=== PATIENT | female | born 1945 | race Caucasian/White ===

== ENCOUNTER 2021-05-05 12:59 | Emergency (ER) | payer MEDICARE ==
--- NOTE | 2021-05-05 14:58 | CT ---
Abdomen Pelvis wo Cont CLINICAL HISTORY: Left lower abdominal pain COMPARISON: None. TECHNIQUE: Axial tomographic images are obtained from the dome of the diaphragm to the pubic symphysis without IV contrast enhancement. No oral contrast was used. The dosage reduction and iterative reconstruction techniques employed. FINDINGS: There is moderate descending colon diverticulosis. Level of the iliac crest is thickened section of descending colon. There is stranding in the pericolic fat. There is some mild thickening of the lateral colon fascia. The lung bases are clear. The liver shows no mass or biliary dilatation. The gallbladder contains at least one large gallstone. The spleen has a normal size and shape. The pancreas shows diffuse fatty infiltration. No mass or inflammatory change is seen.. The adrenal glands appear normal bilaterally. The kidneys show no hydronephrosis. There is a punctate nonobstructing calculus in the midpole of the left kidney. Ureters have a normal course and caliber. The bladder has a normal contour.. The aorta shows minimal atheromatous plaque. There is no suspicious retroperitoneal adenopathy. IMPRESSION: Left colon diverticulosis with lower descending colon diverticulitis Cholelithiasis
--- NOTE | 2021-05-05 15:15 | EDM.PDOC ---
ED HPI GENERAL MEDICAL PROBLEM - General Chief Complaint: Abdominal Pain Stated Complaint: INCREASINGLY INTENSE PAIN ON LT SIDE LOWER ABD Time Seen by Provider: 05/05/21 13:30 Source of Information: Reports: Patient History Limitations: Reports: No Limitations - History of Present Illness INITIAL COMMENTS - FREE TEXT/NARRATIVE: 75-year-old female developed mild left lower abdominal pain 3 days ago, it is slowly worsening over the past 3 days. Yesterday she felt low grade fever and some mild chills but that is resolved. Appetite is also decreased. She looks fairly comfortable, when she is sitting still she has no pain. Onset: Gradual Duration: Day(s): (3 days of symptoms) Location: Reports: Abdomen Quality: Reports: Pressure, Stabbing (Pain is stabbing or palpated or moving) Improves with: Reports: Rest Worsens with: Reports: Movement Associated Symptoms: Reports: Other (Brief loose stools yesterday, possible fever overnight) - Related Data Allergies Allergy/AdvReac Type Severity Reaction Status Date / Time meperidine [From Demerol] Allergy Hives Verified 05/05/21 13:39 Home Meds: Home Meds Ascorbic Acid [Vitamin C] 1,000 mg PO DAILY 05/05/21 [History] Aspirin [Halfprin] 81 mg PO DAILY 05/05/21 [History] Calcium Carbonate [Calcium] 1,000 mg PO DAILY 05/05/21 [History] Calcium Carbonate [Calcium] 250 mg PO BEDTIME 05/05/21 [History] Diltiazem [Dilacor XR] 180 mg PO DAILY 05/05/21 [History] Empagliflozin [Jardiance] 10 mg PO DAILY 05/05/21 [History] Fish Oil/[place]-3 Fatty Acids [Fish Oil 1,000 MG] 1 cap PO DAILY 05/05/21 [History] Furosemide [Lasix] 20 mg PO DAILY 05/05/21 [History] Levothyroxine 175 mcg PO DAILY 05/05/21 [History] Losartan [Cozaar] 50 mg PO DAILY 05/05/21 [History] Magnesium 400 mg PO BID 05/05/21 [History] Omeprazole 40 mg PO DAILY 05/05/21 [History] Potassium Gluconate [Potassium] 198 mg PO BID 05/05/21 [History] Rosuvastatin [Crestor] 5 mg PO DAILY 05/05/21 [History] Tumeric/Ging/[place]/Oreg/Capryl [Candicidal Capsule] 1 cap PO BID 05/05/21 [History] Vitamin B Complex 1 cap PO DAILY 05/05/21 [History] Zinc Gluconate [Zinc] 15 mg PO DAILY 05/05/21 [History] allopurinoL [Zyloprim] 100 mg PO DAILY 05/05/21 [History] metFORMIN [Glucophage] 1,000 mg PO BID 05/05/21 [History] rOPINIRole [Requip] 0.5 mg PO BID 05/05/21 [History] traMADol [Ultram] 50 mg PO ASDIRECTED PRN 05/05/21 [History] Past Medical History - Infectious Disease History Infectious Disease History: Reports: Measles Social & Family History - Tobacco Use Tobacco Use Status *Q: Never Tobacco User - Recreational Drug Use Recreational Drug Use: No ED ROS GENERAL - Review of Systems Review Of Systems: See Below Constitutional: Reports: Fever, Chills, Malaise HEENT: Reports: No Symptoms Respiratory: Denies: Shortness of Breath Cardiovascular: Denies: Chest Pain GI/Abdominal: Reports: Abdominal Pain, Diarrhea. Denies: Vomiting Musculoskeletal: Reports: No Symptoms Skin: Denies: Pruritis, Rash, Erythema Neurological: Reports: No Symptoms ED EXAM, GI/ABD - Physical Exam Exam: See Below Exam Limited By: Intoxication General Appearance: Alert, No Apparent Distress Eyes: Bilateral: Normal Appearance (No jaundice) Head: Atraumatic Respiratory/Chest: No Respiratory Distress, Lungs Clear Cardiovascular: Regular Rate, Rhythm. No: Tachycardia GI/Abdominal Exam: Normal Bowel Sounds, Soft, Tender (Fairly tender to palpation in the left lower quadrant with mild to moderate guarding, no significant rebound tenderness) Extremities: Pedal Edema (Trace symmetric edema) Neurological: Alert, Oriented, No Motor/Sensory Deficits Psychiatric: Normal Affect, Normal Mood Skin Exam: Warm, Dry (No rash over painful area) Course - Vital Signs Last Recorded V/S: Last Vital Signs Temp 97.0 F 05/05/21 13:38 Pulse 102 H 05/05/21 13:38 Resp 16 05/05/21 13:38 BP 138/66 05/05/21 13:38 Pulse Ox 98 05/05/21 13:38 - Orders/Labs/Meds Labs: Laboratory Tests 05/05/21 05/05/21 Range/Units 14:24 14:24 WBC 12.1 H (4.5-11.0) K/uL RBC 4.45 (3.30-5.50) M/uL Hgb 10.8 L (12.0-15.0) g/dL Hct 36.4 (36.0-48.0) % MCV 82 (80-98) fL MCH 24 L (27-31) pg MCHC 30 L (32-36) % Plt Count 280 (150-400) K/uL Neut % (Auto) 76.1 H (36-66) % Lymph % (Auto) 15.7 L (24-44) % [place] % (Auto) 6.7 H (2-6) % Eos % (Auto) 1.1 L (2-4) % Baso % (Auto) 0.4 (0-1) % Sodium 140 (140-148) mmol/L Potassium 4.1 (3.6-5.2) mmol/L Chloride 103 (100-108) mmol/L Carbon Dioxide 28 (21-32) mmol/L Anion Gap 8.9 (5.0-14.0) mmol/L BUN 12 (7-18) mg/dL Creatinine 1.1 H (0.6-1.0) mg/dL Est Cr Clr Drug Dosing 36.02 mL/min Estimated GFR (MDRD) 49 L (>60) Glucose 91 (74-106) mg/dL Calcium 9.0 (8.5-10.1) mg/dL - Re-Assessments/Exams Free Text/Narrative Re-Assessment/Exam: 05/05/21 15:24 Discussed with the patient that this likely is diverticulitis, but since she has never had this diagnosed before it will be confirmed. CBC and BMP were obtained and a CT of the abdomen and pelvis without contrast ordered. White count did return mildly elevated at 12,100, hemoglobin was normal. BMP was reassuring. CT did confirm diverticulitis in the descending colon. Discussed results with the patient, she was placed on Bactrim DS twice daily for at least 5 days along with metronidazole 500 mg 3 times a day for 5 days. She will return if not improving satisfactorily in 3 or 4 days, or return anytime if worsening such as increased pain, fever, vomiting the medications or other concerns. Departure - Departure Time of Disposition: 15:23 Disposition: Home, Self-Care 01 Clinical Impression: Diverticulitis Abdominal pain Qualifiers: Abdominal location: left lower quadrant Qualified Code(s): R10.32 - Left lower quadrant pain - Discharge Information Instructions: Diverticulitis, [id number] Referrals: PCP,None [Primary Care Provider] - Forms: ED Department Discharge Care Plan Goals: Take antibiotic for at least 5 days, drink lots of water and a stool softener may be helpful as well. An anti-inflammatory such as ibuprofen or Aleve will help with pain. Return anytime if worsening such as vomiting the medication, increased fever chills or uncontrolled pain, or consider rechecking in 3 to 4 days if not improving significantly. Sepsis Event Note (ED) - Evaluation Sepsis Screening Result: No Definite Risk
== END 2021-05-05 15:24 | disposition home or self-care (01) ==
LOC: JP.ED 12:59
DX: K57.32 Diverticulitis of large intestine without perforation or abscess without bleeding (principal); Z88.5 Allergy status to narcotic agent; Z79.82 Long term (current) use of aspirin; Z79.899 Other long term (current) drug therapy
CPT/HCPCS: 36415; 74176; 74176-26; 80048; 85025; 99284-25

== ENCOUNTER 2021-08-11 15:00 | Inpatient (IN) | payer MEDICARE ==
[2021-08-11] MEDS ORDERED: Sodium Chloride 0.9% 10 ML Syringe FLUSH PRN (15:24)
--- NOTE | 2021-08-11 15:59 | EDM.PDOC ---
ED HPI GENERAL MEDICAL PROBLEM - General Chief Complaint: Respiratory Problem Stated Complaint: COMPLICATIONS OF COVID Time Seen by Provider: 08/11/21 15:45 Source of Information: Reports: Patient, Old Records, RN History Limitations: Reports: No Limitations - History of Present Illness INITIAL COMMENTS - FREE TEXT/NARRATIVE: 75 yo female here with severe SOB and a recent + Covid test in the [facility] this past Wednesday. Thought she had a cold for a couple weeks and was getting better, then got markedly worse on Wednesday. Is still worse since than. Has had some diarrhea, but it has been controlled with Imodium. No fever that she is aware of. Had one Covid vaccine, doesn't know which one. When she went for a booster they wouldn't give it to her since she doesn't know what #1 was. Pulse ox 91% in clinic on Wednesday, no BAM offered. 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) - Related Data Allergies Allergy/AdvReac Type Severity Reaction Status Date / Time meperidine [From Demerol] Allergy Hives Verified 05/05/21 13:39 Home Meds: Home Meds Ascorbic Acid [Vitamin C] 1,000 mg PO DAILY 05/05/21 [History] Aspirin [Halfprin] 81 mg PO DAILY 05/05/21 [History] Calcium Carbonate [Calcium] 1,000 mg PO DAILY 05/05/21 [History] Calcium Carbonate [Calcium] 250 mg PO BEDTIME 05/05/21 [History] Diltiazem [Dilacor XR] 180 mg PO DAILY 05/05/21 [History] Empagliflozin [Jardiance] 10 mg PO DAILY 05/05/21 [History] Fish Oil/[place]-3 Fatty Acids [Fish Oil 1,000 MG] 1 cap PO DAILY 05/05/21 [History] Furosemide [Lasix] 20 mg PO DAILY 05/05/21 [History] Levothyroxine 175 mcg PO DAILY 05/05/21 [History] Losartan [Cozaar] 50 mg PO DAILY 05/05/21 [History] Magnesium 400 mg PO BID 05/05/21 [History] Omeprazole 40 mg PO DAILY 05/05/21 [History] Potassium Gluconate [Potassium] 198 mg PO BID 05/05/21 [History] Rosuvastatin [Crestor] 5 mg PO DAILY 05/05/21 [History] Tumeric/Ging/[place]/Oreg/Capryl [Candicidal Capsule] 1 cap PO BID 05/05/21 [History] Vitamin B Complex 1 cap PO DAILY 05/05/21 [History] Zinc Gluconate [Zinc] 15 mg PO DAILY 05/05/21 [History] allopurinoL [Zyloprim] 100 mg PO DAILY 05/05/21 [History] metFORMIN [Glucophage] 1,000 mg PO BID 05/05/21 [History] rOPINIRole [Requip] 0.5 mg PO BID 05/05/21 [History] Past Medical History Cardiovascular History: Reports: Afib, High Cholesterol, Hypertension Gastrointestinal History: Reports: GERD Endocrine/Metabolic History: Reports: Diabetes, Type II, Hypothyroidism - Infectious Disease History Infectious Disease History: Reports: Chicken Pox, Measles - Past Surgical History Cardiovascular Surgical History: Reports: Cardiac Ablation Social & Family History - Tobacco Use Tobacco Use Status *Q: Never Tobacco User - Caffeine Use Caffeine Use: Reports: None - Recreational Drug Use Recreational Drug Use: No ED ROS GENERAL - Review of Systems Review Of Systems: See Below Constitutional: Reports: Malaise HEENT: Reports: No Symptoms Respiratory: Reports: Shortness of Breath Cardiovascular: Reports: No Symptoms Endocrine: Reports: No Symptoms GI/Abdominal: Reports: Diarrhea : Reports: No Symptoms Musculoskeletal: Reports: No Symptoms Skin: Reports: No Symptoms Neurological: Reports: No Symptoms ED EXAM, GENERAL - Physical Exam Exam: See Below Exam Limited By: No Limitations General Appearance: Alert, WD/WN, Moderate Distress, Obese Eye Exam: Bilateral Eye: Normal Inspection Ears: Normal External Exam, Normal Canal, Hearing Grossly Normal, Normal TMs Ear Exam: Bilateral Ear: Auricle Normal, Canal Normal Nose: Normal Inspection, No Blood Throat/Mouth: Normal Inspection, Normal Lips, Normal Oropharynx, Normal Voice, No Airway Compromise Head: Atraumatic, Normocephalic Neck: Normal Inspection Respiratory/Chest: Respiratory Distress, Crackles, Other (tachypnea). No: Retractions Cardiovascular: Regular Rate, Rhythm, No Edema GI/Abdominal: Soft, Non-Tender Back Exam: Normal Inspection. No: CVA Tenderness (R), CVA Tenderness (L) Extremities: Normal Inspection, Normal Range of Motion, Non-Tender, No Pedal Edema Neurological: Alert, Oriented, CN II-XII Intact, Normal Cognition, No Motor/Sensory Deficits Psychiatric: Normal Affect, Normal Mood Skin Exam: Warm, Dry, Intact, Normal Color, No Rash Course - Vital Signs Last Recorded V/S: Last Vital Signs Temp 36.4 C 08/11/21 15:42 Pulse 69 08/11/21 15:42 Resp 22 H 08/11/21 15:21 BP 107/53 L 08/11/21 15:42 Pulse Ox 86 L 08/11/21 15:42 - Orders/Labs/Meds Orders: Active Orders 24 hr Category Date Time Status Oxygen Therapy Adult [Oxygen Therapy, ED] [RC] Care 08/11/21 15:24 Active ASDIRECTED UA W/MICROSCOPIC [URIN] Stat Lab 08/11/21 15:23 Ordered Sodium Chloride 0.9% [Saline Flush] Med 08/11/21 15:24 Active 10 ml FLUSH ASDIRECTED PRN dexAMETHasone [Decadron] Med 08/11/21 16:39 Once 6 mg IVPUSH ONETIME ONE Saline Lock Insert [OM.PC] Routine Oth 08/11/21 15:24 Ordered Medication Orders Dexamethasone (Dexamethasone 4 Mg/Ml Sdv) 6 mg IVPUSH ONETIME ONE Stop: 08/11/21 16:40 Sodium Chloride (Sodium Chloride 0.9% 10 Ml Syringe) 10 ml FLUSH ASDIRECTED PRN PRN Reason: Keep Vein Open Labs: Laboratory Tests 08/11/21 08/11/21 08/11/21 Range/Units 15:37 15:37 15:37 WBC 11.1 H (4.5-11.0) K/uL RBC 4.33 (3.30-5.50) M/uL Hgb 10.1 L (12.0-15.0) g/dL Hct 33.8 L (36.0-48.0) % MCV 78 L (80-98) fL MCH 23 L (27-31) pg MCHC 30 L (32-36) % Plt Count 360 (150-400) K/uL D-Dimer, Quantitative 2175.12 H (0.0-500.0) ng/mL Sodium 135 L (140-148) mmol/L Potassium 4.6 (3.6-5.2) mmol/L Chloride 100 (100-108) mmol/L Carbon Dioxide 20 L (21-32) mmol/L Anion Gap 19.6 H (5.0-14.0) mmol/L BUN 28 H D (7-18) mg/dL Creatinine 1.8 H D (0.6-1.0) mg/dL Est Cr Clr Drug Dosing TNP Estimated GFR (MDRD) 28 L (>60) Glucose 101 (74-106) mg/dL Calcium 8.5 (8.5-10.1) mg/dL Meds: Medications Generic Name Dose Route Start Last Admin Trade Name Freq PRN Reason Stop Dose Admin Dexamethasone 6 mg 08/11/21 16:39 Dexamethasone 4 Mg/Ml Sdv IVPUSH 08/11/21 16:40 ONETIME ONE Sodium Chloride 10 ml 08/11/21 15:24 Sodium Chloride 0.9% 10 Ml Syringe FLUSH ASDIRECTED PRN Keep Vein Open Departure - Departure Time of Disposition: 17:00 Disposition: Admitted As Inpatient 68 Condition: Serious Clinical Impression: COVID-19, Hypoxia, Elevated d-dimer, Stage 4 chronic kidney disease Clinical Impression: (Ruled Out): Stage 3 chronic kidney disease - Discharge Information Referrals: PCP,None [Primary Care Provider] - Forms: ED Department Discharge Sepsis Event Note (ED) - Evaluation Sepsis Screening Result: Possible Sepsis Risk - Focused Exam Vital Signs: Vital Signs Temp Pulse Resp BP Pulse Ox 08/11/21 15:42 36.4 C 69 107/53 L 86 L 08/11/21 15:21 36.4 C 69 22 H 107/53 L 86 L - My Orders Last 24 Hours: My Active Orders 08/11/21 15:23 UA W/MICROSCOPIC [URIN] Stat 08/11/21 15:24 Oxygen Therapy Adult [Oxygen Therapy, ED] [RC] ASDIRECTED Sodium Chloride 0.9% [Saline Flush] 10 ml FLUSH ASDIRECTED PRN Saline Lock Insert [OM.PC] Routine 08/11/21 16:39 dexAMETHasone [Decadron] 6 mg IVPUSH ONETIME ONE - Assessment/Plan Last 24 Hours: My Active Orders 08/11/21 15:23 UA W/MICROSCOPIC [URIN] Stat 08/11/21 15:24 Oxygen Therapy Adult [Oxygen Therapy, ED] [RC] ASDIRECTED Sodium Chloride 0.9% [Saline Flush] 10 ml FLUSH ASDIRECTED PRN Saline Lock Insert [OM.PC] Routine 08/11/21 16:39 dexAMETHasone [Decadron] 6 mg IVPUSH ONETIME ONE
[2021-08-11] MEDS ORDERED: Dexamethasone 4 MG/ML SDV IVPUSH ONE (16:39)
--- NOTE | 2021-08-11 18:36 | PCM.HP.2 ---
H&P History of Present Illness - General Date of Service: 08/11/21 Admit Problem/Dx: Admission Diagnosis/Problem Admission Diagnosis/Problem Pneumonia Source of Information: Patient, Provider History Limitations: Reports: No Limitations - History of Present Illness Initial Comments - Free Text/Narative: CC: I just wasn't getting better HPI: Janell presents to the emergency room today with progressive dyspnea and weakness. She reports that she has not felt well for about 3 weeks or so. The first week of her illness she reports that she thought she had a bad cold with sinus congestion. After about a week the symptoms all got better and then several days later she started to feel ill again. She had mild dyspnea and cough as well as a mild sore throat and some persistent nasal congestion. Her dyspnea and sore throat have slowly progressed over the past 2 weeks or so. Shortness of breath has increased significantly since Wednesday. She was seen in the clinic on Wednesday and tested positive for Covid. They thought maybe she had a bacterial bronchitis as well and did start her on a azithromycin. She was not hypoxic at that time. She was not offered monoclonal antibodies at that time. Initially she thought maybe she felt a little better Wednesday but then has steadily and progressively worsened since that time. She is short of breath even at rest and has difficulty speaking and even short sentences without supplemental oxygen on. She has not had any fevers. Her throat has been so sore it has been difficult to swallow yet. She is not aware of any obvious sick contacts. She had mild diarrhea for a few days that went away after Imodium. She did have 1 dose of a Covid vaccine but is not sure which one. Work-up in the emergency room revealed severe acute hypoxic respiratory failure. She is currently requiring a combination of high flow nasal cannula and nonrebreather. Labs are consistent with Covid. Procalcitonin was also quite elevated. Chest x-ray is pending. Given her severe respiratory compromise she will be admitted to the intensive care unit. - Related Data Allergies/Adverse Reactions: Allergies Allergy/AdvReac Type Severity Reaction Status Date / Time meperidine [From Demerol] Allergy Hives Verified 05/05/21 13:39 Home Medications: Home Meds Ascorbic Acid [Vitamin C] 1,000 mg PO DAILY 05/05/21 [History] Aspirin [Halfprin] 81 mg PO DAILY 05/05/21 [History] Calcium Carbonate [Calcium] 1,000 mg PO DAILY 05/05/21 [History] Calcium Carbonate [Calcium] 250 mg PO BEDTIME 05/05/21 [History] Diltiazem [Dilacor XR] 180 mg PO DAILY 05/05/21 [History] Empagliflozin [Jardiance] 10 mg PO DAILY 05/05/21 [History] Fish Oil/[place]-3 Fatty Acids [Fish Oil 1,000 MG] 1 cap PO DAILY 05/05/21 [History] Furosemide [Lasix] 20 mg PO DAILY 05/05/21 [History] Levothyroxine 175 mcg PO DAILY 05/05/21 [History] Losartan [Cozaar] 50 mg PO DAILY 05/05/21 [History] Magnesium 400 mg PO BID 05/05/21 [History] Omeprazole 40 mg PO DAILY 05/05/21 [History] Potassium Gluconate [Potassium] 198 mg PO BID 05/05/21 [History] Rosuvastatin [Crestor] 5 mg PO DAILY 05/05/21 [History] Tumeric/Ging/[place]/Oreg/Capryl [Candicidal Capsule] 1 cap PO BID 05/05/21 [History] Vitamin B Complex 1 cap PO DAILY 05/05/21 [History] Zinc Gluconate [Zinc] 15 mg PO DAILY 05/05/21 [History] allopurinoL [Zyloprim] 100 mg PO DAILY 05/05/21 [History] metFORMIN [Glucophage] 1,000 mg PO BID 05/05/21 [History] rOPINIRole [Requip] 0.5 mg PO BID 05/05/21 [History] Past Medical History Cardiovascular History: Reports: Afib, High Cholesterol, Hypertension Gastrointestinal History: Reports: GERD Endocrine/Metabolic History: Reports: Diabetes, Type II, Hypothyroidism - Infectious Disease History Infectious Disease History: Reports: Chicken Pox, Measles - Past Surgical History Cardiovascular Surgical History: Reports: Cardiac Ablation Social & Family History - Family History Cardiac: Denies: CAD - Tobacco Use Tobacco Use Status *Q: Never Tobacco User - Caffeine Use Caffeine Use: Reports: None - Recreational Drug Use Recreational Drug Use: No H&P Review of Systems - Review of Systems: Review Of Systems: See Below Free Text/Narrative: A complete 12 point review of systems was obtained. Pertinent positives and negatives are noted in the history of present illness. All other systems were reviewed and were negative except as noted. Exam - Exam Exam: See Below - Vital Signs Vital Signs: Last Vital Signs Temp 36.4 C 08/11/21 17:51 Pulse 87 08/11/21 17:51 Resp 17 08/11/21 17:51 BP 97/37 L 08/11/21 17:51 Pulse Ox 90 L 08/11/21 17:51 Weight: 117.934 kg - Exam Quality Assessment: Supplemental Oxygen General: Alert, Oriented, Cooperative, Moderate Distress (Increased work of breathing) HEENT: Conjunctiva Clear. No: Mucosa Moist & [place] (Dry), Scleral Icterus Neck: Supple, Trachea Midline. No: JVD Lungs: Crackles (Moderate both lower lungs and mild in both mid lungs). No: Normal Respiratory Effort (Tachypnea), Wheezing Cardiovascular: Regular Rate, Regular Rhythm. No: Systolic Murmur GI/Abdominal Exam: Normal Bowel Sounds, Soft, Non-Tender, No Distention Extremities: No Pedal Edema. No: Increased Warmth Skin: Warm, Dry. No: Rash Neuro Extensive - Mental Status: Alert, Oriented x3, Nl Response to Commands Neuro Extensive - Motor, Sensory, Reflexes: No: Dysarthria, Abnormal Motor, Tremor Psychiatric: Alert, Normal Affect - Patient Data Lab Results Last 24 hrs: Laboratory Results - last 24 hr 08/11/21 08/11/21 08/11/21 Range/Units 15:37 15:37 15:37 WBC 11.1 H (4.5-11.0) K/uL RBC 4.33 (3.30-5.50) M/uL Hgb 10.1 L (12.0-15.0) g/dL Hct 33.8 L (36.0-48.0) % MCV 78 L (80-98) fL MCH 23 L (27-31) pg MCHC 30 L (32-36) % Plt Count 360 (150-400) K/uL D-Dimer, Quantitative 2175.12 H (0.0-500.0) ng/mL Sodium 135 L (140-148) mmol/L Potassium 4.6 (3.6-5.2) mmol/L Chloride 100 (100-108) mmol/L Carbon Dioxide 20 L (21-32) mmol/L Anion Gap 19.6 H (5.0-14.0) mmol/L BUN 28 H D (7-18) mg/dL Creatinine 1.8 H D (0.6-1.0) mg/dL Est Cr Clr Drug Dosing TNP Estimated GFR (MDRD) 28 L (>60) Glucose 101 (74-106) mg/dL Calcium 8.5 (8.5-10.1) mg/dL Result Diagrams: 08/11/21 15:37 08/11/21 15:37 Sepsis Event Note - Evaluation Sepsis Screening Result: Possible Sepsis Risk - Focused Exam Vital Signs: Vital Signs Temp Pulse Resp BP Pulse Ox 08/11/21 17:51 36.4 C 87 17 97/37 L 90 L 08/11/21 16:42 89 40 H 94/41 L 80 L 08/11/21 15:42 36.4 C 69 107/53 L 86 L 08/11/21 15:21 36.4 C 69 22 H 107/53 L 86 L *Q Meaningful Use (ADM) - VTE Risk Assess *Q Each Risk Factor Represents 1 Point: Obesity ( BMI > 25 kg/m2), Serious lung disease including pneumonia Total Score 1 Point Risk Factors: 2 Each Risk Factor Represents 2 Points: Age 60 - 74 Years Total Score 2 Point Risk Factors: 2 Each Risk Factor Represents 3 Points: None Total Score 3 Point Risk Factors: 0 Each Risk Factor Represents 5 Points: None Total Score 5 Point Risk Factors: 0 Venous Thromboembolism Risk Factor Score *Q: 4 - Problem List (1) Pneumonia due to COVID-19 virus SNOMED Code(s): 192277175232535915 ICD Code: U07.1 - COVID-19; J12.82 - PNEUMONIA DUE TO CORONAVIRUS DISEASE 2019 Status: Acute Current Visit: Yes (2) Acute respiratory failure with hypoxia SNOMED Code(s): 50071065, 870932610 ICD Code: J96.01 - ACUTE RESPIRATORY FAILURE WITH HYPOXIA Status: Acute Current Visit: Yes (3) Acute kidney injury SNOMED Code(s): 66664187, 44628150 ICD Code: N17.9 - ACUTE KIDNEY FAILURE, UNSPECIFIED Status: Acute Current Visit: Yes (4) Type 2 diabetes mellitus SNOMED Code(s): 67240039 ICD Code: E11.9 - TYPE 2 DIABETES MELLITUS WITHOUT COMPLICATIONS Status: Chronic Current Visit: Yes Qualifiers: Diabetes mellitus detention insulin use: without detention use Diabetes mellitus complication status: without complication Qualified Code(s): E11.9 - Type 2 diabetes mellitus without complications (5) Obesity, morbid, BMI 40.0-49.9 SNOMED Code(s): 740683223, 052801983, 04333236382829 ICD Code: E66.01 - MORBID (SEVERE) OBESITY DUE TO EXCESS CALORIES Status: Chronic Current Visit: Yes Problem List Initiated/Reviewed/Updated: Yes Orders Last 24hrs: Active Orders 24 hr Category Date Time Status Patient Status Manage Transfer [TRANSFER] Routine ADT 08/11/21 18:28 Ordered Oxygen Therapy Adult [Oxygen Therapy, ED] [RC] Care 08/11/21 15:24 Active ASDIRECTED C-REACTIVE PROTEIN [CHEM] Stat Lab 08/11/21 15:30 Received PROCALCITONIN [CHEM] Stat Lab 08/11/21 15:30 Received UA W/MICROSCOPIC [URIN] Stat Lab 08/11/21 15:23 Ordered Sodium Chloride 0.9% [Saline Flush] Med 08/11/21 15:24 Active 10 ml FLUSH ASDIRECTED PRN Saline Lock Insert [OM.PC] Routine Oth 08/11/21 15:24 Ordered Resuscitation Status Routine Resus Stat 08/11/21 18:29 Ordered Medication Orders Sodium Chloride (Sodium Chloride 0.9% 10 Ml Syringe) 10 ml FLUSH ASDIRECTED PRN PRN Reason: Keep Vein Open Assessment/Plan Comment:: ASSESSMENT AND PLAN - COVID-19 pneumonia-complicated by acute respiratory failure with significant supplemental oxygen requirements. She did receive step one of her vaccine series when they were initially available. Currently on a combination of high flow and nonrebreather. D-dimer moderately elevated and CRP quite elevated. Duration of symptoms is a little unclear since she has had respiratory symptoms for 2 to 3 weeks. Procalcitonin is also quite elevated and she may have a superimposed or secondary bacterial infection. GFR is less than 30. -Dexamethasone 6 mg every 24 hours (day 1) Enoxaparin every 24 hours- -Reconsider remdesivir and baricitinib if GFR improves -1 L of gentle fluids overnight -Supplemental oxygen, initiating AIRVO in the ICU -Covid isolation Acute kidney injury-likely due to intravascular volume depletion. Poor intake recently. -1 L of IV fluids and repeat labs in the morning Type 2 diabetes mellitus-usually controlled with oral agents. -Continue home medications other than Metformin Morbid obesity BMI greater than 40- Maintenance issues - -DVT prophylaxis-enoxaparin -GI prophylaxis-not indicated -Nutrition-diabetic -Pacheco catheter-not indicated CODE STATUS -full code Admission justification -this patient will be admitted for inpatient services and is medically appropriate meeting medical necessity for inpatient admission as outlined in my documentation. I reasonably expect the patient will require inpatient services that span a period time over 2 midnights. I reasonably expect this patient to be discharged or transferred within 96 hours after admission to the [facility]. Disposition -I anticipate discharge home after the hospital stay Primary care physician -[facility] in [place], [place] Kevin Ludwig M.D. - Mortality Measure Prognosis:: Poor
[2021-08-11] MEDS ORDERED: Ondansetron 4 MG/2 ML SDV IV PRN (19:40)
[2021-08-11] MEDS ORDERED: Magnesium Hydroxide 400 MG/5 ML Susp 30 ML Cup PO PRN (19:40)
[2021-08-11] MEDS ORDERED: LORazepam 2 MG/ML SDV IVPUSH PRN ×2 (19:40→22:48)
[2021-08-11] MEDS ORDERED: Acetaminophen 325 MG Tab PO PRN (19:40)
[2021-08-11] MEDS ORDERED: Ondansetron 4 MG Tab.DIS PO PRN (19:40)
[2021-08-11] MEDS ORDERED: Sodium Chloride 0.9% 1,000 ML IV SCH (19:40)
[2021-08-11] MEDS ORDERED: Doxycycline 100 MG in Sodium Chloride 0.9% 100 ML IV SCH (20:00)
[2021-08-11] MEDS: cefTRIAXone 2 GM in Sodium Chloride 0.9% 50 ML IV SCH (20:22)
[2021-08-11] MEDS: rOPINIRole 1 MG Tab PO SCH (20:26)
[2021-08-11] MEDS: Enoxaparin 30 MG/0.3 ML Syringe SUBCUT SCH (20:27)
[2021-08-11] MEDS: Benzonatate 100 MG Cap PO PRN (23:33)
[2021-08-11] MEDS: LORazepam 2 MG/ML SDV IVPUSH PRN (23:33)
[2021-08-12] MEDS: guaiFENesin/Dextromethorphan 100-10 MG/5 ML Soln 10 ML Cup PO PRN ×4 (04:04→21:19)
[2021-08-12] MEDS ORDERED: Levothyroxine 25 MCG Tab PO SCH (07:30)
[2021-08-12] MEDS ORDERED: Non-Formulary Medication 1 Each (Metformin [Glucophage] 1,000 MG Tablet) PO SCH (07:30)
[2021-08-12] MEDS ORDERED: Levothyroxine 100 MCG Tab PO SCH (07:30)
[2021-08-12] MEDS ORDERED: Levothyroxine 50 MCG Tab PO SCH (07:30)
[2021-08-12] MEDS: Levothyroxine 100 MCG, Levothyroxine 50 MCG, Levothyroxine 25 MCG PO SCH ×3 (08:28)
[2021-08-12] MEDS: Aspirin 81 MG Tab.EC PO SCH (08:32)
[2021-08-12] MEDS: Allopurinol 100 MG Tab PO SCH (08:32)
[2021-08-12] MEDS: Empagliflozin 10 MG Tab PO SCH (08:32)
[2021-08-12] MEDS: Rosuvastatin 10 MG Tab PO SCH (08:32)
[2021-08-12] MEDS: Pantoprazole 40 MG Tab.CR PO SCH (08:44)
[2021-08-12] MEDS ORDERED: Losartan 50 MG Tab PO SCH (09:00)
[2021-08-12] MEDS ORDERED: Non-Formulary Medication 1 Each (Levothyroxine [Levothyroxine] 175 MCG Tablet) PO SCH (09:00)
[2021-08-12] MEDS ORDERED: Diltiazem 180 MG Cap.CD PO SCH (09:00)
[2021-08-12] MEDS ORDERED: REMDESIVIR 200 MG in Sodium Chloride 0.9% 250 ML IV ONE (09:30)
--- NOTE | 2021-08-12 09:37 | PCM.PN ---
- General Info Date of Service: 08/12/21 Subjective Update: Patient did have a decline in her respiratory status overnight and was started on noninvasive ventilation. She has stabilized since that time. She is currently requiring a high level of support and oxygen saturations are borderline but acceptable. She reports that she feels less short of breath today. Cough has been minimal. She feels weak and tired but otherwise feels okay. No nausea or abdominal pain. She just wants to rest. Functional Status: Reports: Pain Controlled - Review of Systems General: Reports: Weakness Pulmonary: Reports: Shortness of Breath - Patient Data Vitals - Most Recent: Last Vital Signs Temp 35.9 C L 08/12/21 08:00 Pulse 67 08/12/21 08:00 Resp 36 H 08/12/21 08:00 BP 96/44 L 08/12/21 08:00 Pulse Ox 88 L 08/12/21 08:00 Weight - Most Recent: 117.934 kg I&O - Last 24 Hours: Intake & Output 08/11/21 08/12/21 08/12/21 22:59 06:59 14:59 Output Total 550 Balance -550 Lab Results Last 24 Hours: Laboratory Results - last 24 hr 08/11/21 08/11/21 08/11/21 Range/Units 15:30 15:30 15:37 WBC 11.1 H (4.5-11.0) K/uL RBC 4.33 (3.30-5.50) M/uL Hgb 10.1 L (12.0-15.0) g/dL Hct 33.8 L (36.0-48.0) % MCV 78 L (80-98) fL MCH 23 L (27-31) pg MCHC 30 L (32-36) % Plt Count 360 (150-400) K/uL D-Dimer, Quantitative (0.0-500.0) ng/mL Sodium (140-148) mmol/L Potassium (3.6-5.2) mmol/L Chloride (100-108) mmol/L Carbon Dioxide (21-32) mmol/L Anion Gap (5.0-14.0) mmol/L BUN (7-18) mg/dL Creatinine (0.6-1.0) mg/dL Est Cr Clr Drug Dosing Estimated GFR (MDRD) (>60) Glucose (74-106) mg/dL Calcium (8.5-10.1) mg/dL Total Bilirubin (0.2-1.0) mg/dL AST (15-37) U/L ALT (12-78) U/L Alkaline Phosphatase (46-116) U/L C-Reactive Protein 15.86 H (0.0-0.3) mg/dL Total Protein (6.4-8.2) g/dL Albumin (3.4-5.0) g/dL Globulin (2.3-3.5) g/dL Albumin/Globulin Ratio (1.2-2.2) Procalcitonin 5.21 H* ng/mL Urine Color (YELLOW) Urine Appearance (CLEAR) Urine pH (5.0-8.0) Ur Specific Cocoa (1.008-1.030) Urine Protein (NEGATIVE) mg/dL Urine Glucose (UA) (NEGATIVE) mg/dL Urine Ketones (NEGATIVE) mg/dL Urine Occult Blood (NEGATIVE) Urine Nitrite (NEGATIVE) Urine Bilirubin (NEGATIVE) Urine Urobilinogen (0.2-1.0) EU/dL Ur Leukocyte Esterase (NEGATIVE) Urine RBC (0-5) Urine WBC (0-5) Ur Epithelial Cells Amorphous Sediment Urine Bacteria Urine Mucus 08/11/21 08/11/21 08/11/21 Range/Units 15:37 15:37 22:47 WBC (4.5-11.0) K/uL RBC (3.30-5.50) M/uL Hgb (12.0-15.0) g/dL Hct (36.0-48.0) % MCV (80-98) fL MCH (27-31) pg MCHC (32-36) % Plt Count (150-400) K/uL D-Dimer, Quantitative 2175.12 H (0.0-500.0) ng/mL Sodium 135 L (140-148) mmol/L Potassium 4.6 (3.6-5.2) mmol/L Chloride 100 (100-108) mmol/L Carbon Dioxide 20 L (21-32) mmol/L Anion Gap 19.6 H (5.0-14.0) mmol/L BUN 28 H D (7-18) mg/dL Creatinine 1.8 H D (0.6-1.0) mg/dL Est Cr Clr Drug Dosing TNP Estimated GFR (MDRD) 28 L (>60) Glucose 101 (74-106) mg/dL Calcium 8.5 (8.5-10.1) mg/dL Total Bilirubin (0.2-1.0) mg/dL AST (15-37) U/L ALT (12-78) U/L Alkaline Phosphatase (46-116) U/L C-Reactive Protein (0.0-0.3) mg/dL Total Protein (6.4-8.2) g/dL Albumin (3.4-5.0) g/dL Globulin (2.3-3.5) g/dL Albumin/Globulin Ratio (1.2-2.2) Procalcitonin ng/mL Urine Color Yellow (YELLOW) Urine Appearance Clear (CLEAR) Urine pH 5.0 (5.0-8.0) Ur Specific Cocoa 1.025 (1.008-1.030) Urine Protein 100 H (NEGATIVE) mg/dL Urine Glucose (UA) 100 H (NEGATIVE) mg/dL Urine Ketones Negative (NEGATIVE) mg/dL Urine Occult Blood Trace-intact H (NEGATIVE) Urine Nitrite Negative (NEGATIVE) Urine Bilirubin Negative (NEGATIVE) Urine Urobilinogen 0.2 (0.2-1.0) EU/dL Ur Leukocyte Esterase Negative (NEGATIVE) Urine RBC 0-5 (0-5) Urine WBC 5-10 H (0-5) Ur Epithelial Cells Few Amorphous Sediment Not seen Urine Bacteria Many Urine Mucus Not seen 08/12/21 08/12/21 Range/Units 05:45 05:45 WBC 10.1 (4.5-11.0) K/uL RBC 4.14 (3.30-5.50) M/uL Hgb 9.8 L (12.0-15.0) g/dL Hct 32.7 L (36.0-48.0) % MCV 79 L (80-98) fL MCH 24 L (27-31) pg MCHC 30 L (32-36) % Plt Count 345 (150-400) K/uL D-Dimer, Quantitative (0.0-500.0) ng/mL Sodium 140 (140-148) mmol/L Potassium 4.8 (3.6-5.2) mmol/L Chloride 105 (100-108) mmol/L Carbon Dioxide 22 (21-32) mmol/L Anion Gap 13.4 (5.0-14.0) mmol/L BUN 31 H (7-18) mg/dL Creatinine 1.5 H (0.6-1.0) mg/dL Est Cr Clr Drug Dosing 27.63 Estimated GFR (MDRD) 34 L (>60) Glucose 150 H (74-106) mg/dL Calcium 8.7 (8.5-10.1) mg/dL Total Bilirubin 0.4 (0.2-1.0) mg/dL AST 106 H (15-37) U/L ALT 60 (12-78) U/L Alkaline Phosphatase 191 H (46-116) U/L C-Reactive Protein (0.0-0.3) mg/dL Total Protein 7.0 (6.4-8.2) g/dL Albumin 2.4 L (3.4-5.0) g/dL Globulin 4.6 H (2.3-3.5) g/dL Albumin/Globulin Ratio 0.5 L (1.2-2.2) Procalcitonin ng/mL Urine Color (YELLOW) Urine Appearance (CLEAR) Urine pH (5.0-8.0) Ur Specific Cocoa (1.008-1.030) Urine Protein (NEGATIVE) mg/dL Urine Glucose (UA) (NEGATIVE) mg/dL Urine Ketones (NEGATIVE) mg/dL Urine Occult Blood (NEGATIVE) Urine Nitrite (NEGATIVE) Urine Bilirubin (NEGATIVE) Urine Urobilinogen (0.2-1.0) EU/dL Ur Leukocyte Esterase (NEGATIVE) Urine RBC (0-5) Urine WBC (0-5) Ur Epithelial Cells Amorphous Sediment Urine Bacteria Urine Mucus Med Orders - Current: Current Medications Acetaminophen (Acetaminophen 325 Mg Tab) 650 mg PO Q4H PRN PRN Reason: Pain (Mild 1-3)/fever Allopurinol (Allopurinol 100 Mg Tab) 100 mg PO DAILY [facility] Last Admin: 08/12/21 08:32 Dose: 100 mg Documented by: Aspirin (Aspirin 81 Mg Tab.Ec) 81 mg PO DAILY [facility] Last Admin: 08/12/21 08:32 Dose: 81 mg Documented by: Baricitinib (Baricitinib 2 Mg Tab) 2 mg PO DAILY [facility] Stop: 08/25/21 09:01 Benzonatate (Benzonatate 100 Mg Cap) 100 mg PO TID PRN PRN Reason: Cough Last Admin: 08/11/21 23:33 Dose: 100 mg Documented by: Dexamethasone (Dexamethasone 4 Mg/Ml Sdv) 6 mg IVPUSH Q24H [facility] Stop: 08/20/21 17:01 Enoxaparin Sodium (Enoxaparin 30 Mg/0.3 Ml Syringe) 30 mg SUBCUT Q24H [facility] Last Admin: 08/11/21 20:27 Dose: 30 mg Documented by: Guaifenesin/Dextromethorphan (Guaifenesin/Dextromethorphan 100-10 Mg/5 Ml Soln 10 Ml Cup) 10 ml PO Q4H PRN PRN Reason: Cough Last Admin: 08/12/21 08:27 Dose: 10 ml Documented by: Ceftriaxone Sodium 2 gm/ (Sodium Chloride) 50 mls @ 100 mls/hr IV Q24H [facility] Last Admin: 08/11/21 20:22 Dose: 100 mls/hr Documented by: Doxycycline Hyclate 100 mg/ (Sodium Chloride) 100 mls @ 100 mls/hr IV Q12H [facility] Remdesivir 100 mg/ Sodium (Chloride) 100 mls @ 100 mls/hr IV Q24H [facility] Stop: 08/16/21 10:59 Remdesivir 200 mg/ Sodium (Chloride) 250 mls @ 250 mls/hr IV ONETIME ONE Stop: 08/12/21 10:29 Levothyroxine Sodium 100 mcg/Levothyroxine Sodium 50 mcg/Levothyroxine Sodium 25 mcg 175 mcg PO ACBREAKFAST [facility] Last Admin: 08/12/21 08:28 Dose: 175 mcg Documented by: Lorazepam (Lorazepam 2 Mg/Ml Sdv) 1 mg IVPUSH Q2H PRN PRN Reason: Anxiety Last Admin: 08/11/21 23:33 Dose: 1 mg Documented by: Magnesium Hydroxide (Magnesium Hydroxide 400 Mg/5 Ml Susp 30 Ml Cup) 30 ml PO Q12H PRN PRN Reason: Constipation Melatonin (Melatonin 3 Mg Tab) 9 mg PO BEDTIME PRN PRN Reason: Sleep Ondansetron HCl (Ondansetron 4 Mg/2 Ml Sdv) 4 mg IV Q6H PRN PRN Reason: Nausea/Vomiting Ondansetron HCl (Ondansetron 4 Mg Tab.Dis) 4 mg PO Q6H PRN PRN Reason: Nausea able to take PO Pantoprazole Sodium (Pantoprazole 40 Mg Tab.Cr) 40 mg PO ACBREAKFAST [facility] Last Admin: 08/12/21 08:44 Dose: 40 mg Documented by: Ropinirole HCl (Ropinirole 0.5 Mg Tab) 0.5 mg PO DAILY@1400 [facility] Ropinirole HCl (Ropinirole 1 Mg Tab) 1 mg PO BEDTIME [facility] Last Admin: 08/11/21 20:26 Dose: 1 mg Documented by: Rosuvastatin Calcium (Rosuvastatin 10 Mg Tab) 5 mg PO DAILY [facility] Last Admin: 08/12/21 08:32 Dose: 5 mg Documented by: Senna/Docusate Sodium (Docusate Sodium/Sennosides 50-8.6 Mg Tab) 1 tab PO BID PRN PRN Reason: Constipation Sodium Chloride (Sodium Chloride 0.9% 10 Ml Syringe) 10 ml FLUSH ASDIRECTED PRN PRN Reason: Keep Vein Open Discontinued Medications Baricitinib (Baricitinib 2 Mg Tab) 4 mg PO DAILY [facility] Stop: 08/25/21 09:01 Dexamethasone (Dexamethasone 4 Mg/Ml Sdv) 6 mg IVPUSH ONETIME ONE Stop: 08/11/21 16:40 Last Admin: 08/11/21 16:59 Dose: 6 mg Documented by: Diltiazem HCl (Diltiazem 180 Mg Cap.Cd) 180 mg PO DAILY [facility] Sodium Chloride (Normal Saline) 1,000 mls @ 100 mls/hr IV ASDIRECTED [facility] Stop: 08/12/21 05:41 Doxycycline Hyclate 100 mg/ (Sodium Chloride) 100 mls @ 100 mls/hr IV Q12H [facility] Last Admin: 08/11/21 21:05 Dose: 100 mls/hr Documented by: Levothyroxine Sodium (Levothyroxine 100 Mcg Tab) 100 mcg PO ACBREAKFAST [facility] Levothyroxine Sodium (Levothyroxine 50 Mcg Tab) 50 mcg PO ACBREAKFAST [facility] Levothyroxine Sodium (Levothyroxine 25 Mcg Tab) 25 mcg PO ACBREAKFAST [facility] Lorazepam (Lorazepam 2 Mg/Ml Sdv) 0.5 mg IVPUSH Q4H PRN PRN Reason: Nausea/Vomiting Last Admin: 08/11/21 22:13 Dose: 0.5 mg Documented by: Lorazepam (Lorazepam 2 Mg/Ml Sdv) 0.5 mg IVPUSH Q4H PRN PRN Reason: Anxiety Losartan Potassium (Losartan 50 Mg Tab) 50 mg PO DAILY [facility] Non-Formulary Medication (Metformin [Glucophage]) 1,000 mg PO BIDAC [facility] - Exam Quality Assessment: Supplemental Oxygen Urinary Catheter Total Time: 0Days 1Hours General: Alert, Oriented, Cooperative, Mild Distress Lungs: No: Normal Respiratory Effort (tachypnea), Wheezing Cardiovascular: Regular Rate, Regular Rhythm GI/Abdominal Exam: Soft, No Distention Extremities: No Pedal Edema. No: Increased Warmth Skin: Warm, Dry Psy/Mental Status: Alert, Normal Affect - Patient Data Lab Results Last 24 hrs: Laboratory Results - last 24 hr 08/11/21 08/11/21 08/11/21 Range/Units 15:30 15:30 15:37 WBC 11.1 H (4.5-11.0) K/uL RBC 4.33 (3.30-5.50) M/uL Hgb 10.1 L (12.0-15.0) g/dL Hct 33.8 L (36.0-48.0) % MCV 78 L (80-98) fL MCH 23 L (27-31) pg MCHC 30 L (32-36) % Plt Count 360 (150-400) K/uL D-Dimer, Quantitative (0.0-500.0) ng/mL Sodium (140-148) mmol/L Potassium (3.6-5.2) mmol/L Chloride (100-108) mmol/L Carbon Dioxide (21-32) mmol/L Anion Gap (5.0-14.0) mmol/L BUN (7-18) mg/dL Creatinine (0.6-1.0) mg/dL Est Cr Clr Drug Dosing Estimated GFR (MDRD) (>60) Glucose (74-106) mg/dL Calcium (8.5-10.1) mg/dL Total Bilirubin (0.2-1.0) mg/dL AST (15-37) U/L ALT (12-78) U/L Alkaline Phosphatase (46-116) U/L C-Reactive Protein 15.86 H (0.0-0.3) mg/dL Total Protein (6.4-8.2) g/dL Albumin (3.4-5.0) g/dL Globulin (2.3-3.5) g/dL Albumin/Globulin Ratio (1.2-2.2) Procalcitonin 5.21 H* ng/mL Urine Color (YELLOW) Urine Appearance (CLEAR) Urine pH (5.0-8.0) Ur Specific Cocoa (1.008-1.030) Urine Protein (NEGATIVE) mg/dL Urine Glucose (UA) (NEGATIVE) mg/dL Urine Ketones (NEGATIVE) mg/dL Urine Occult Blood (NEGATIVE) Urine Nitrite (NEGATIVE) Urine Bilirubin (NEGATIVE) Urine Urobilinogen (0.2-1.0) EU/dL Ur Leukocyte Esterase (NEGATIVE) Urine RBC (0-5) Urine WBC (0-5) Ur Epithelial Cells Amorphous Sediment Urine Bacteria Urine Mucus 08/11/21 08/11/21 08/11/21 Range/Units 15:37 15:37 22:47 WBC (4.5-11.0) K/uL RBC (3.30-5.50) M/uL Hgb (12.0-15.0) g/dL Hct (36.0-48.0) % MCV (80-98) fL MCH (27-31) pg MCHC (32-36) % Plt Count (150-400) K/uL D-Dimer, Quantitative 2175.12 H (0.0-500.0) ng/mL Sodium 135 L (140-148) mmol/L Potassium 4.6 (3.6-5.2) mmol/L Chloride 100 (100-108) mmol/L Carbon Dioxide 20 L (21-32) mmol/L Anion Gap 19.6 H (5.0-14.0) mmol/L BUN 28 H D (7-18) mg/dL Creatinine 1.8 H D (0.6-1.0) mg/dL Est Cr Clr Drug Dosing TNP Estimated GFR (MDRD) 28 L (>60) Glucose 101 (74-106) mg/dL Calcium 8.5 (8.5-10.1) mg/dL Total Bilirubin (0.2-1.0) mg/dL AST (15-37) U/L ALT (12-78) U/L Alkaline Phosphatase (46-116) U/L C-Reactive Protein (0.0-0.3) mg/dL Total Protein (6.4-8.2) g/dL Albumin (3.4-5.0) g/dL Globulin (2.3-3.5) g/dL Albumin/Globulin Ratio (1.2-2.2) Procalcitonin ng/mL Urine Color Yellow (YELLOW) Urine Appearance Clear (CLEAR) Urine pH 5.0 (5.0-8.0) Ur Specific Cocoa 1.025 (1.008-1.030) Urine Protein 100 H (NEGATIVE) mg/dL Urine Glucose (UA) 100 H (NEGATIVE) mg/dL Urine Ketones Negative (NEGATIVE) mg/dL Urine Occult Blood Trace-intact H (NEGATIVE) Urine Nitrite Negative (NEGATIVE) Urine Bilirubin Negative (NEGATIVE) Urine Urobilinogen 0.2 (0.2-1.0) EU/dL Ur Leukocyte Esterase Negative (NEGATIVE) Urine RBC 0-5 (0-5) Urine WBC 5-10 H (0-5) Ur Epithelial Cells Few Amorphous Sediment Not seen Urine Bacteria Many Urine Mucus Not seen 08/12/21 08/12/21 Range/Units 05:45 05:45 WBC 10.1 (4.5-11.0) K/uL RBC 4.14 (3.30-5.50) M/uL Hgb 9.8 L (12.0-15.0) g/dL Hct 32.7 L (36.0-48.0) % MCV 79 L (80-98) fL MCH 24 L (27-31) pg MCHC 30 L (32-36) % Plt Count 345 (150-400) K/uL D-Dimer, Quantitative (0.0-500.0) ng/mL Sodium 140 (140-148) mmol/L Potassium 4.8 (3.6-5.2) mmol/L Chloride 105 (100-108) mmol/L Carbon Dioxide 22 (21-32) mmol/L Anion Gap 13.4 (5.0-14.0) mmol/L BUN 31 H (7-18) mg/dL Creatinine 1.5 H (0.6-1.0) mg/dL Est Cr Clr Drug Dosing 27.63 Estimated GFR (MDRD) 34 L (>60) Glucose 150 H (74-106) mg/dL Calcium 8.7 (8.5-10.1) mg/dL Total Bilirubin 0.4 (0.2-1.0) mg/dL AST 106 H (15-37) U/L ALT 60 (12-78) U/L Alkaline Phosphatase 191 H (46-116) U/L C-Reactive Protein (0.0-0.3) mg/dL Total Protein 7.0 (6.4-8.2) g/dL Albumin 2.4 L (3.4-5.0) g/dL Globulin 4.6 H (2.3-3.5) g/dL Albumin/Globulin Ratio 0.5 L (1.2-2.2) Procalcitonin ng/mL Urine Color (YELLOW) Urine Appearance (CLEAR) Urine pH (5.0-8.0) Ur Specific Cocoa (1.008-1.030) Urine Protein (NEGATIVE) mg/dL Urine Glucose (UA) (NEGATIVE) mg/dL Urine Ketones (NEGATIVE) mg/dL Urine Occult Blood (NEGATIVE) Urine Nitrite (NEGATIVE) Urine Bilirubin (NEGATIVE) Urine Urobilinogen (0.2-1.0) EU/dL Ur Leukocyte Esterase (NEGATIVE) Urine RBC (0-5) Urine WBC (0-5) Ur Epithelial Cells Amorphous Sediment Urine Bacteria Urine Mucus Result Diagrams: 08/12/21 05:45 08/12/21 05:45 Sepsis Event Note - Evaluation Sepsis Screening Result: Possible Sepsis Risk - Focused Exam Vital Signs: Vital Signs Temp Pulse Resp BP Pulse Ox 08/12/21 08:00 35.9 C L 67 36 H 96/44 L 88 L 08/12/21 06:00 70 29 H 93/51 L 90 L 08/12/21 04:00 35.9 C L 80 31 H 100/44 L 95 08/12/21 02:00 86 36 H 128/66 98 08/12/21 00:00 36.1 C 77 40 H 102/43 L 94 L 08/11/21 22:00 36.4 C 77 32 H 98/51 L 85 L - Problem List & Annotations (1) Pneumonia due to COVID-19 virus SNOMED Code(s): 060970465856569519 Code(s): U07.1 - COVID-19; J12.82 - PNEUMONIA DUE TO CORONAVIRUS DISEASE 2019 Status: Acute Current Visit: Yes (2) Acute respiratory failure with hypoxia SNOMED Code(s): 21156638, 579370549 Code(s): J96.01 - ACUTE RESPIRATORY FAILURE WITH HYPOXIA Status: Acute Current Visit: Yes (3) Acute kidney injury SNOMED Code(s): 75580534, 80356696 Code(s): N17.9 - ACUTE KIDNEY FAILURE, UNSPECIFIED Status: Acute Current Visit: Yes (4) Type 2 diabetes mellitus SNOMED Code(s): 95657066 Code(s): E11.9 - TYPE 2 DIABETES MELLITUS WITHOUT COMPLICATIONS Status: Chronic Current Visit: Yes Qualifiers: Diabetes mellitus jail insulin use: without jail use Diabetes mellitus complication status: without complication Qualified Code(s): E11.9 - Type 2 diabetes mellitus without complications (5) Obesity, morbid, BMI 40.0-49.9 SNOMED Code(s): 924842741, 330859529, 70982263863426 Code(s): E66.01 - MORBID (SEVERE) OBESITY DUE TO EXCESS CALORIES Status: Chronic Current Visit: Yes - Problem List Review Problem List Initiated/Reviewed/Updated: Yes - My Orders Last 24 Hours: My Active Orders 08/11/21 Dinner Consistent Carbohydrate Diet [DIET] 08/11/21 18:29 Resuscitation Status Routine 08/11/21 19:40 Acetaminophen [TylenoL] 650 mg PO Q4H PRN Benzonatate [Tessalon Perles] 100 mg PO TID PRN Dextromethorphan/guaiFENesin [Robitussin DM] 10 ml PO Q4H PRN Docusate Sodium/Sennosides [Senna Plus] 1 tab PO BID PRN Magnesium Hydroxide [Milk of Magnesia] 30 ml PO Q12H PRN Melatonin 9 mg PO BEDTIME PRN Ondansetron [Zofran ODT] 4 mg PO Q6H PRN Ondansetron [Zofran] 4 mg IV Q6H PRN 08/11/21 19:40 Patient Status [ADT] Routine Bedrest Bedside Commode [RC] ASDIRECTED Cardiac Monitoring [RC] Q6H Intake and Output [RC] QSHIFT Notify Provider Vital Signs [RC] ASDIRECTED Oxygen Therapy [RC] PRN Pulse Oximetry [RC] CONTINUOUS Vital Signs [RC] Q2HR CXR [Chest 1V Frontal] [CR] Urgent Isolation [COMM] Routine 08/11/21 20:00 Enoxaparin [Lovenox] 30 mg SUBCUT Q24H cefTRIAXone [Rocephin] 2 gm Sodium Chloride 0.9% [Normal Saline AdvBag] 50 ml IV Q24H 08/11/21 21:00 rOPINIRole [Requip] 1 mg PO BEDTIME 08/11/21 22:04 BIPAP Adult [RT BiPAP/CPAP] [RC] ASDIRECTED 08/11/21 23:22 LORazepam [Ativan] 1 mg IVPUSH Q2H PRN 08/12/21 00:06 Urinary Catheter Assessment [RC] ASDIRECTED 08/12/21 07:30 Levothyroxine [Synthroid] 175 mcg PO ACBREAKFAST Pantoprazole [ProTONIX] 40 mg PO ACBREAKFAST 08/12/21 09:00 Aspirin [Halfprin] 81 mg PO DAILY Baricitinib [Olumiant] 2 mg PO DAILY Doxycycline [Vibramycin] 100 mg Sodium Chloride 0.9% [Normal Saline AdvBag] 10 0 ml IV Q12H Empagliflozin [Jardiance] 10 mg PO DAILY Rosuvastatin [Crestor] 5 mg PO DAILY allopurinoL [Zyloprim] 100 mg PO DAILY 08/12/21 09:30 Remdesivir 200 mg Sodium Chloride 0.9% [Normal Saline] 250 ml IV ONETIME 08/12/21 14:00 rOPINIRole [Requip] 0.5 mg PO DAILY@1400 08/12/21 17:00 dexAMETHasone [Decadron] 6 mg IVPUSH Q24H 08/13/21 00:15 Insert Pacheco Catheter [Insert Urinary Catheter] [OM.PC] Q24H 08/13/21 05:00 CBC W/O DIFF,HEMOGRAM [HEME] Timed (1) COMPREHENSIVE METABOLIC PN,CMP [CHEM] Timed CRP [C-REACTIVE PROTEIN] [CHEM] Timed D-DIMER QUANTITATIVE [COAG] Timed 08/13/21 10:00 Remdesivir 100 mg Sodium Chloride 0.9% [Normal Saline] 100 ml IV Q24H - Plan Plan:: ASSESSMENT AND PLAN - COVID-19 pneumonia-complicated by acute respiratory failure with significant supplemental oxygen requirements. Onset of symptoms difficult to determine. Stable on NIPPV but quite compromised. Did not tolerate AirVo. Symptomatically feeling better. GFR has improved so we can initiate remdesivir and baricitinib. -Dexamethasone 6 mg every 24 hours (day 2) -Enoxaparin every 24 hours -Start remdesivir today with plan for 5 days -Initiate baricitinib (day 1) -Supplemental oxygen, continue NIPPV as tolerated, transition to high flow when able -Covid isolation Acute kidney injury-likely due to intravascular volume depletion. Improved with gentle hydration overnight. - labs in the morning Type 2 diabetes mellitus-usually controlled with oral agents. Sugars have risen with initiation of steroids. -Sliding scale insulin -Continue home medications other than Metformin Morbid obesity BMI greater than 40- Maintenance issues - -DVT prophylaxis-enoxaparin -GI prophylaxis-not indicated -Nutrition-diabetic -Pacheco catheter-placed for strict intake and output monitoring in a critical patient as well as to reduce the work of breathing with severe respiratory infection Disposition -I anticipate discharge home after the hospital stay Kevin Ludwig M.D.
[2021-08-12] MEDS: Doxycycline 100 MG in Sodium Chloride 0.9% 100 ML IV SCH ×2 (10:19→21:05)
[2021-08-12] MEDS: Insulin Lispro 100 Unit/ML 3 ML KwikPen SUBCUT SCH ×3 (11:42→20:56)
[2021-08-12] MEDS: rOPINIRole 0.5 MG Tab PO SCH (13:46)
[2021-08-12] MEDS: Benzonatate 100 MG Cap PO PRN ×2 (13:47→21:19)
[2021-08-12] MEDS: Dexamethasone 4 MG/ML SDV IVPUSH SCH (17:45)
[2021-08-12] MEDS: Enoxaparin 30 MG/0.3 ML Syringe SUBCUT SCH (20:01)
[2021-08-12] MEDS: cefTRIAXone 2 GM in Sodium Chloride 0.9% 50 ML IV SCH (20:01)
[2021-08-12] MEDS: rOPINIRole 1 MG Tab PO SCH (20:58)
[2021-08-12] MEDS: Melatonin 3 MG Tab PO PRN (21:19)
[2021-08-13] MEDS: Morphine 2 MG/ML SYRINGE IVPUSH PRN ×5 (03:55→23:37)
[2021-08-13] MEDS: Insulin Lispro 100 Unit/ML 3 ML KwikPen SUBCUT SCH (08:05)
[2021-08-13] MEDS: Levothyroxine 100 MCG, Levothyroxine 50 MCG, Levothyroxine 25 MCG PO SCH ×3 (08:28)
[2021-08-13] MEDS: Pantoprazole 40 MG Tab.CR PO SCH (08:29)
[2021-08-13] MEDS: Doxycycline 100 MG in Sodium Chloride 0.9% 100 ML IV SCH ×2 (08:30→21:52)
[2021-08-13] MEDS: Rosuvastatin 10 MG Tab PO SCH (08:47)
[2021-08-13] MEDS: Allopurinol 100 MG Tab PO SCH (08:48)
[2021-08-13] MEDS: Empagliflozin 10 MG Tab PO SCH (08:48)
[2021-08-13] MEDS: Aspirin 81 MG Tab.EC PO SCH (08:48)
--- NOTE | 2021-08-13 09:08 | PCM.PN ---
- General Info Date of Service: 08/13/21 Subjective Update: No acute events overnight. Patient has used NIPPV nearly continuously. She did have the mask off this morning and even with 15 L via high flow nasal cannula he r saturations were in the mid seventies. She responded quickly when the mask was replaced. She feels less short of breath today. She looks more comfortable today. She reports that overall she feels good. Blood sugars have been very well controlled. No fevers. Tolerating current medications. Family updated. Functional Status: Reports: Pain Controlled, Tolerating Diet - Review of Systems General: Reports: Weakness Pulmonary: Reports: Shortness of Breath - Patient Data Vitals - Most Recent: Last Vital Signs Temp 36.4 C 08/13/21 08:00 Pulse 66 08/13/21 08:00 Resp 28 H 08/13/21 08:00 BP 112/63 08/13/21 08:00 Pulse Ox 93 L 08/13/21 08:00 Weight - Most Recent: 117.934 kg I&O - Last 24 Hours: Intake & Output 08/12/21 08/13/21 08/13/21 22:59 06:59 14:59 Intake Total 100 Output Total 625 550 Balance -525 -550 Lab Results Last 24 Hours: Laboratory Results - last 24 hr 08/12/21 08/12/21 08/12/21 Range/Units 11:37 17:40 20:54 WBC (4.5-11.0) K/uL RBC (3.30-5.50) M/uL Hgb (12.0-15.0) g/dL Hct (36.0-48.0) % MCV (80-98) fL MCH (27-31) pg MCHC (32-36) % Plt Count (150-400) K/uL D-Dimer, Quantitative (0.0-500.0) ng/mL Sodium (140-148) mmol/L Potassium (3.6-5.2) mmol/L Chloride (100-108) mmol/L Carbon Dioxide (21-32) mmol/L Anion Gap (5.0-14.0) mmol/L BUN (7-18) mg/dL Creatinine (0.6-1.0) mg/dL Est Cr Clr Drug Dosing mL/min Estimated GFR (MDRD) (>60) Glucose (74-106) mg/dL POC Glucose 142 H 111 H 122 H (74-106) mg/dL Calcium (8.5-10.1) mg/dL Total Bilirubin (0.2-1.0) mg/dL AST (15-37) U/L ALT (12-78) U/L Alkaline Phosphatase (46-116) U/L C-Reactive Protein (0.0-0.3) mg/dL Total Protein (6.4-8.2) g/dL Albumin (3.4-5.0) g/dL Globulin (2.3-3.5) g/dL Albumin/Globulin Ratio (1.2-2.2) 08/13/21 08/13/21 08/13/21 Range/Units 06:17 06:17 06:17 WBC 11.1 H (4.5-11.0) K/uL RBC 4.06 (3.30-5.50) M/uL Hgb 9.5 L (12.0-15.0) g/dL Hct 32.5 L (36.0-48.0) % MCV 80 (80-98) fL MCH 23 L (27-31) pg MCHC 29 L (32-36) % Plt Count 375 (150-400) K/uL D-Dimer, Quantitative 1820.95 H (0.0-500.0) ng/mL Sodium 144 (140-148) mmol/L Potassium 4.7 (3.6-5.2) mmol/L Chloride 109 H (100-108) mmol/L Carbon Dioxide 23 (21-32) mmol/L Anion Gap 16.7 H (5.0-14.0) mmol/L BUN 41 H (7-18) mg/dL Creatinine 1.5 H (0.6-1.0) mg/dL Est Cr Clr Drug Dosing 31.27 mL/min Estimated GFR (MDRD) 34 L (>60) Glucose 137 H (74-106) mg/dL POC Glucose (74-106) mg/dL Calcium 9.0 (8.5-10.1) mg/dL Total Bilirubin 0.3 (0.2-1.0) mg/dL AST 175 H (15-37) U/L ALT 106 H (12-78) U/L Alkaline Phosphatase 206 H (46-116) U/L C-Reactive Protein 6.12 H (0.0-0.3) mg/dL Total Protein 7.1 (6.4-8.2) g/dL Albumin 2.4 L (3.4-5.0) g/dL Globulin 4.7 H (2.3-3.5) g/dL Albumin/Globulin Ratio 0.5 L (1.2-2.2) 08/13/21 Range/Units 08:20 WBC (4.5-11.0) K/uL RBC (3.30-5.50) M/uL Hgb (12.0-15.0) g/dL Hct (36.0-48.0) % MCV (80-98) fL MCH (27-31) pg MCHC (32-36) % Plt Count (150-400) K/uL D-Dimer, Quantitative (0.0-500.0) ng/mL Sodium (140-148) mmol/L Potassium (3.6-5.2) mmol/L Chloride (100-108) mmol/L Carbon Dioxide (21-32) mmol/L Anion Gap (5.0-14.0) mmol/L BUN (7-18) mg/dL Creatinine (0.6-1.0) mg/dL Est Cr Clr Drug Dosing mL/min Estimated GFR (MDRD) (>60) Glucose (74-106) mg/dL POC Glucose 137 H (74-106) mg/dL Calcium (8.5-10.1) mg/dL Total Bilirubin (0.2-1.0) mg/dL AST (15-37) U/L ALT (12-78) U/L Alkaline Phosphatase (46-116) U/L C-Reactive Protein (0.0-0.3) mg/dL Total Protein (6.4-8.2) g/dL Albumin (3.4-5.0) g/dL Globulin (2.3-3.5) g/dL Albumin/Globulin Ratio (1.2-2.2) Med Orders - Current: Current Medications Acetaminophen (Acetaminophen 325 Mg Tab) 650 mg PO Q4H PRN PRN Reason: Pain (Mild 1-3)/fever Allopurinol (Allopurinol 100 Mg Tab) 100 mg PO DAILY [facility] Last Admin: 08/13/21 08:48 Dose: 100 mg Documented by: Aspirin (Aspirin 81 Mg Tab.Ec) 81 mg PO DAILY [facility] Last Admin: 08/13/21 08:48 Dose: 81 mg Documented by: Baricitinib (Baricitinib 2 Mg Tab) 2 mg PO DAILY [facility] Stop: 08/25/21 09:01 Last Admin: 08/13/21 08:47 Dose: 2 mg Documented by: Benzonatate (Benzonatate 100 Mg Cap) 100 mg PO TID PRN PRN Reason: Cough Last Admin: 08/12/21 21:19 Dose: 100 mg Documented by: Dexamethasone (Dexamethasone 4 Mg/Ml Sdv) 6 mg IVPUSH Q24H [facility] Stop: 08/20/21 17:01 Last Admin: 08/12/21 17:45 Dose: 6 mg Documented by: Enoxaparin Sodium (Enoxaparin 30 Mg/0.3 Ml Syringe) 30 mg SUBCUT Q24H [facility] Last Admin: 08/12/21 20:01 Dose: 30 mg Documented by: Guaifenesin/Dextromethorphan (Guaifenesin/Dextromethorphan 100-10 Mg/5 Ml Soln 10 Ml Cup) 10 ml PO Q4H PRN PRN Reason: Cough Last Admin: 08/12/21 21:19 Dose: 10 ml Documented by: Ceftriaxone Sodium 2 gm/ (Sodium Chloride) 50 mls @ 100 mls/hr IV Q24H [facility] Last Admin: 08/12/21 20:01 Dose: 100 mls/hr Documented by: Doxycycline Hyclate 100 mg/ (Sodium Chloride) 100 mls @ 100 mls/hr IV Q12H [facility] Last Admin: 08/13/21 08:30 Dose: 100 mls/hr Documented by: Remdesivir 100 mg/ Sodium (Chloride) 100 mls @ 100 mls/hr IV Q24H [facility] Stop: 08/16/21 10:59 Levothyroxine Sodium 100 mcg/Levothyroxine Sodium 50 mcg/Levothyroxine Sodium 25 mcg 175 mcg PO ACBREAKFAST [facility] Last Admin: 08/13/21 08:28 Dose: 175 mcg Documented by: Lorazepam (Lorazepam 2 Mg/Ml Sdv) 1 mg IVPUSH Q2H PRN PRN Reason: Anxiety Last Admin: 08/11/21 23:33 Dose: 1 mg Documented by: Magnesium Hydroxide (Magnesium Hydroxide 400 Mg/5 Ml Susp 30 Ml Cup) 30 ml PO Q12H PRN PRN Reason: Constipation Melatonin (Melatonin 3 Mg Tab) 9 mg PO BEDTIME PRN PRN Reason: Sleep Last Admin: 08/12/21 21:19 Dose: 9 mg Documented by: Morphine Sulfate (Morphine 2 Mg/Ml Syringe) 2 mg IVPUSH Q2H PRN PRN Reason: air hunger Last Admin: 08/13/21 03:55 Dose: 2 mg Documented by: Ondansetron HCl (Ondansetron 4 Mg/2 Ml Sdv) 4 mg IV Q6H PRN PRN Reason: Nausea/Vomiting Ondansetron HCl (Ondansetron 4 Mg Tab.Dis) 4 mg PO Q6H PRN PRN Reason: Nausea able to take PO Pantoprazole Sodium (Pantoprazole 40 Mg Tab.Cr) 40 mg PO ACBREAKFAST [facility] Last Admin: 08/13/21 08:29 Dose: 40 mg Documented by: Ropinirole HCl (Ropinirole 0.5 Mg Tab) 0.5 mg PO DAILY@1400 [facility] Last Admin: 08/12/21 13:46 Dose: 0.5 mg Documented by: Ropinirole HCl (Ropinirole 1 Mg Tab) 1 mg PO BEDTIME [facility] Last Admin: 08/12/21 20:58 Dose: 1 mg Documented by: Rosuvastatin Calcium (Rosuvastatin 10 Mg Tab) 5 mg PO DAILY [facility] Last Admin: 08/13/21 08:47 Dose: 5 mg Documented by: Senna/Docusate Sodium (Docusate Sodium/Sennosides 50-8.6 Mg Tab) 1 tab PO BID PRN PRN Reason: Constipation Sodium Chloride (Sodium Chloride 0.9% 10 Ml Syringe) 10 ml FLUSH ASDIRECTED PRN PRN Reason: Keep Vein Open Discontinued Medications Baricitinib (Baricitinib 2 Mg Tab) 4 mg PO DAILY [facility] Stop: 08/25/21 09:01 Dexamethasone (Dexamethasone 4 Mg/Ml Sdv) 6 mg IVPUSH ONETIME ONE Stop: 08/11/21 16:40 Last Admin: 08/11/21 16:59 Dose: 6 mg Documented by: Diltiazem HCl (Diltiazem 180 Mg Cap.Cd) 180 mg PO DAILY [facility] Last Admin: 08/13/21 04:18 Dose: Not Given Documented by: Sodium Chloride (Normal Saline) 1,000 mls @ 100 mls/hr IV ASDIRECTED [facility] Stop: 08/12/21 05:41 Doxycycline Hyclate 100 mg/ (Sodium Chloride) 100 mls @ 100 mls/hr IV Q12H [facility] Last Admin: 08/11/21 21:05 Dose: 100 mls/hr Documented by: Remdesivir 200 mg/ Sodium (Chloride) 250 mls @ 250 mls/hr IV ONETIME ONE Stop: 08/12/21 10:29 Last Admin: 08/12/21 11:41 Dose: 250 mls/hr Documented by: Insulin Human Lispro (Insulin Lispro 100 Unit/Ml 3 Ml Kwikpen) 0 unit SUBCUT QIDACANDBED [facility]; Protocol Last Admin: 08/13/21 08:05 Dose: Not Given Documented by: Levothyroxine Sodium (Levothyroxine 100 Mcg Tab) 100 mcg PO ACBREAKFAST [facility] Levothyroxine Sodium (Levothyroxine 50 Mcg Tab) 50 mcg PO ACBREAKFAST [facility] Levothyroxine Sodium (Levothyroxine 25 Mcg Tab) 25 mcg PO ACBREAKFAST [facility] Lorazepam (Lorazepam 2 Mg/Ml Sdv) 0.5 mg IVPUSH Q4H PRN PRN Reason: Nausea/Vomiting Last Admin: 08/11/21 22:13 Dose: 0.5 mg Documented by: Lorazepam (Lorazepam 2 Mg/Ml Sdv) 0.5 mg IVPUSH Q4H PRN PRN Reason: Anxiety Losartan Potassium (Losartan 50 Mg Tab) 50 mg PO DAILY [facility] Last Admin: 08/13/21 04:18 Dose: Not Given Documented by: Non-Formulary Medication (Metformin [Glucophage]) 1,000 mg PO BIDAC [facility] - Exam Quality Assessment: Supplemental Oxygen Urinary Catheter Total Time: 0Days 1Hours General: Alert, Oriented, Cooperative, No Acute Distress HEENT: Pupils Reactive Lungs: Normal Respiratory Effort, Crackles (few both bases) Cardiovascular: Regular Rate, Regular Rhythm GI/Abdominal Exam: Soft, No Distention Extremities: No Pedal Edema. No: Increased Warmth Skin: Warm, Dry Psy/Mental Status: Alert, Normal Affect - Patient Data Lab Results Last 24 hrs: Laboratory Results - last 24 hr 08/12/21 08/12/21 08/12/21 Range/Units 11:37 17:40 20:54 WBC (4.5-11.0) K/uL RBC (3.30-5.50) M/uL Hgb (12.0-15.0) g/dL Hct (36.0-48.0) % MCV (80-98) fL MCH (27-31) pg MCHC (32-36) % Plt Count (150-400) K/uL D-Dimer, Quantitative (0.0-500.0) ng/mL Sodium (140-148) mmol/L Potassium (3.6-5.2) mmol/L Chloride (100-108) mmol/L Carbon Dioxide (21-32) mmol/L Anion Gap (5.0-14.0) mmol/L BUN (7-18) mg/dL Creatinine (0.6-1.0) mg/dL Est Cr Clr Drug Dosing mL/min Estimated GFR (MDRD) (>60) Glucose (74-106) mg/dL POC Glucose 142 H 111 H 122 H (74-106) mg/dL Calcium (8.5-10.1) mg/dL Total Bilirubin (0.2-1.0) mg/dL AST (15-37) U/L ALT (12-78) U/L Alkaline Phosphatase (46-116) U/L C-Reactive Protein (0.0-0.3) mg/dL Total Protein (6.4-8.2) g/dL Albumin (3.4-5.0) g/dL Globulin (2.3-3.5) g/dL Albumin/Globulin Ratio (1.2-2.2) 08/13/21 08/13/21 08/13/21 Range/Units 06:17 06:17 06:17 WBC 11.1 H (4.5-11.0) K/uL RBC 4.06 (3.30-5.50) M/uL Hgb 9.5 L (12.0-15.0) g/dL Hct 32.5 L (36.0-48.0) % MCV 80 (80-98) fL MCH 23 L (27-31) pg MCHC 29 L (32-36) % Plt Count 375 (150-400) K/uL D-Dimer, Quantitative 1820.95 H (0.0-500.0) ng/mL Sodium 144 (140-148) mmol/L Potassium 4.7 (3.6-5.2) mmol/L Chloride 109 H (100-108) mmol/L Carbon Dioxide 23 (21-32) mmol/L Anion Gap 16.7 H (5.0-14.0) mmol/L BUN 41 H (7-18) mg/dL Creatinine 1.5 H (0.6-1.0) mg/dL Est Cr Clr Drug Dosing 31.27 mL/min Estimated GFR (MDRD) 34 L (>60) Glucose 137 H (74-106) mg/dL POC Glucose (74-106) mg/dL Calcium 9.0 (8.5-10.1) mg/dL Total Bilirubin 0.3 (0.2-1.0) mg/dL AST 175 H (15-37) U/L ALT 106 H (12-78) U/L Alkaline Phosphatase 206 H (46-116) U/L C-Reactive Protein 6.12 H (0.0-0.3) mg/dL Total Protein 7.1 (6.4-8.2) g/dL Albumin 2.4 L (3.4-5.0) g/dL Globulin 4.7 H (2.3-3.5) g/dL Albumin/Globulin Ratio 0.5 L (1.2-2.2) 08/13/21 Range/Units 08:20 WBC (4.5-11.0) K/uL RBC (3.30-5.50) M/uL Hgb (12.0-15.0) g/dL Hct (36.0-48.0) % MCV (80-98) fL MCH (27-31) pg MCHC (32-36) % Plt Count (150-400) K/uL D-Dimer, Quantitative (0.0-500.0) ng/mL Sodium (140-148) mmol/L Potassium (3.6-5.2) mmol/L Chloride (100-108) mmol/L Carbon Dioxide (21-32) mmol/L Anion Gap (5.0-14.0) mmol/L BUN (7-18) mg/dL Creatinine (0.6-1.0) mg/dL Est Cr Clr Drug Dosing mL/min Estimated GFR (MDRD) (>60) Glucose (74-106) mg/dL POC Glucose 137 H (74-106) mg/dL Calcium (8.5-10.1) mg/dL Total Bilirubin (0.2-1.0) mg/dL AST (15-37) U/L ALT (12-78) U/L Alkaline Phosphatase (46-116) U/L C-Reactive Protein (0.0-0.3) mg/dL Total Protein (6.4-8.2) g/dL Albumin (3.4-5.0) g/dL Globulin (2.3-3.5) g/dL Albumin/Globulin Ratio (1.2-2.2) Result Diagrams: 08/13/21 06:17 08/13/21 06:17 Sepsis Event Note - Evaluation Sepsis Screening Result: Possible Sepsis Risk - Focused Exam Vital Signs: Vital Signs Temp Pulse Resp BP Pulse Ox 08/13/21 08:00 36.4 C 66 28 H 112/63 93 L 08/13/21 06:00 67 30 H 113/50 L 94 L 08/13/21 04:00 36.3 C 64 33 H 104/50 L 91 L 08/13/21 03:28 67 30 H 94 L 08/13/21 02:00 67 30 H 101/51 L 96 08/13/21 00:00 61 32 H 97/49 L 95 08/12/21 22:00 68 29 H 101/38 L 96 - Problem List & Annotations (1) Pneumonia due to COVID-19 virus SNOMED Code(s): 388182670128880705 Code(s): U07.1 - COVID-19; J12.82 - PNEUMONIA DUE TO CORONAVIRUS DISEASE 2019 Status: Acute Current Visit: Yes (2) Acute respiratory failure with hypoxia SNOMED Code(s): 14337781, 587124809 Code(s): J96.01 - ACUTE RESPIRATORY FAILURE WITH HYPOXIA Status: Acute Current Visit: Yes (3) Acute kidney injury SNOMED Code(s): 25003221, 43528817 Code(s): N17.9 - ACUTE KIDNEY FAILURE, UNSPECIFIED Status: Acute Current Visit: Yes (4) Type 2 diabetes mellitus SNOMED Code(s): 28005301 Code(s): E11.9 - TYPE 2 DIABETES MELLITUS WITHOUT COMPLICATIONS Status: Chronic Current Visit: Yes Qualifiers: Diabetes mellitus mcc insulin use: without mcc use Diabetes mellitus complication status: without complication Qualified Code(s): E11.9 - Type 2 diabetes mellitus without complications (5) Obesity, morbid, BMI 40.0-49.9 SNOMED Code(s): 931387074, 936221842, 53800186417456 Code(s): E66.01 - MORBID (SEVERE) OBESITY DUE TO EXCESS CALORIES Status: Chronic Current Visit: Yes - Problem List Review Problem List Initiated/Reviewed/Updated: Yes - My Orders Last 24 Hours: My Active Orders 08/12/21 09:00 Aspirin [Halfprin] 81 mg PO DAILY Baricitinib [Olumiant] 2 mg PO DAILY Doxycycline [Vibramycin] 100 mg Sodium Chloride 0.9% [Normal Saline AdvBag] 100 ml IV Q12H Empagliflozin [Jardiance] 10 mg PO DAILY Rosuvastatin [Crestor] 5 mg PO DAILY allopurinoL [Zyloprim] 100 mg PO DAILY 08/12/21 10:41 Diabetes Education [RC] Click to Edit Notify Provider [RC] PRN 08/12/21 14:00 rOPINIRole [Requip] 0.5 mg PO DAILY@1400 08/12/21 17:00 dexAMETHasone [Decadron] 6 mg IVPUSH Q24H 08/12/21 21:55 Morphine 2 mg IVPUSH Q2H PRN 08/13/21 10:00 Remdesivir 100 mg Sodium Chloride 0.9% [Normal Saline] 100 ml IV Q24H 08/14/21 00:15 Insert Pacheco Catheter [Insert Urinary Catheter] [OM.PC] Q24H 08/14/21 05:00 COMPREHENSIVE METABOLIC PN,CMP [CHEM] Timed - Plan Plan:: ASSESSMENT AND PLAN - COVID-19 pneumonia-complicated by acute respiratory failure with significant supplemental oxygen requirements. Onset of symptoms difficult to determine. Stable on NIPPV but quite compromised. Desaturates quickly without NIPPV. Inflammatory markers improving. -Dexamethasone 6 mg every 24 hours (day 3) -Enoxaparin every 24 hours -remdesivir today with plan for 5 days -Initiate baricitinib (day 2) -Supplemental oxygen, continue NIPPV as tolerated, transition to high flow when able -Covid isolation Acute kidney injury-likely due to intravascular volume depletion. Improved over the past 24 hours. - labs in the morning Type 2 diabetes mellitus-usually controlled with oral agents. Sugars have been stable even with the steroids. -Discontinue sliding scale -Restart Metformin if GFR improves a little further -Continue home medications Morbid obesity BMI greater than 40- Maintenance issues - -DVT prophylaxis-enoxaparin -GI prophylaxis-not indicated -Nutrition-diabetic -Pacheco catheter-placed for strict intake and output monitoring in a critical patient as well as to reduce the work of breathing with severe respiratory infection Disposition -I anticipate discharge home after the hospital stay Kevin Ludwig M.D.
[2021-08-13] MEDS: REMDESIVIR 100 MG in Sodium Chloride 0.9% 100 ML IV SCH (10:39)
[2021-08-13] MEDS: rOPINIRole 0.5 MG Tab PO SCH (14:30)
[2021-08-13] MEDS: Dexamethasone 4 MG/ML SDV IVPUSH SCH (17:31)
[2021-08-13] MEDS: Enoxaparin 30 MG/0.3 ML Syringe SUBCUT SCH (20:54)
[2021-08-13] MEDS: cefTRIAXone 2 GM in Sodium Chloride 0.9% 50 ML IV SCH (20:55)
[2021-08-13] MEDS: rOPINIRole 1 MG Tab PO SCH (20:55)
[2021-08-13] MEDS: guaiFENesin/Dextromethorphan 100-10 MG/5 ML Soln 10 ML Cup PO PRN (23:16)
[2021-08-13] MEDS: Benzonatate 100 MG Cap PO PRN (23:31)
[2021-08-14] MEDS: Morphine 2 MG/ML SYRINGE IVPUSH PRN (02:22)
[2021-08-14] MEDS: guaiFENesin/Dextromethorphan 100-10 MG/5 ML Soln 10 ML Cup PO PRN ×2 (05:36→13:11)
[2021-08-14] MEDS: Levothyroxine 100 MCG, Levothyroxine 50 MCG, Levothyroxine 25 MCG PO SCH ×3 (07:36)
[2021-08-14] MEDS: Pantoprazole 40 MG Tab.CR PO SCH (07:36)
[2021-08-14] MEDS: Rosuvastatin 10 MG Tab PO SCH (08:36)
[2021-08-14] MEDS: Empagliflozin 10 MG Tab PO SCH (08:36)
[2021-08-14] MEDS: Aspirin 81 MG Tab.EC PO SCH (08:37)
[2021-08-14] MEDS: Allopurinol 100 MG Tab PO SCH (08:37)
[2021-08-14] MEDS: Doxycycline 100 MG in Sodium Chloride 0.9% 100 ML IV SCH ×2 (08:41→21:40)
--- NOTE | 2021-08-14 09:28 | CR ---
CHEST: Portable 08/11/2021 at 7:09 PM CLINICAL HISTORY:Hypoxia COMPARISON:None FINDINGS: Patient has diffuse bilateral pulmonary infiltrates. Heart is enlarged. Pulmonary vascularity is felt to be normal. No effusions are seen. There are atherosclerotic changes in the aorta. Impression: Moderate diffuse bilateral lateral pulmonary infiltrates
[2021-08-14] MEDS: REMDESIVIR 100 MG in Sodium Chloride 0.9% 100 ML IV SCH (10:14)
[2021-08-14] MEDS: Benzonatate 100 MG Cap PO PRN ×2 (13:11→23:59)
--- NOTE | 2021-08-14 13:51 | PCM.PN ---
- General Info Date of Service: 08/14/21 Subjective Update: No acute events overnight. She has been transitioned to heated/high flow nasal cannula and is doing well. Did well with noninvasive ventilation yesterday and overnight. She feels less short of breath today. Respiratory rate is down to around 20. No fevers. Blood pressure acceptable. No abdominal pain or nausea. No edema. Blood sugars well controlled. - Patient Data Vitals - Most Recent: Last Vital Signs Temp 36.3 C 08/14/21 12:00 Pulse 62 08/14/21 08:00 Resp 19 08/14/21 12:00 BP 124/59 L 08/14/21 12:00 Pulse Ox 98 08/14/21 12:00 Weight - Most Recent: 117.934 kg I&O - Last 24 Hours: Intake & Output 08/13/21 08/14/21 08/14/21 22:59 06:59 14:59 Intake Total 400 540 Output Total 350 800 Balance 50 -260 Lab Results Last 24 Hours: Laboratory Results - last 24 hr 08/14/21 Range/Units 06:10 Sodium 146 (140-148) mmol/L Potassium 4.9 (3.6-5.2) mmol/L Chloride 111 H (100-108) mmol/L Carbon Dioxide 22 (21-32) mmol/L Anion Gap 17.9 H (5.0-14.0) mmol/L BUN 45 H (7-18) mg/dL Creatinine 1.4 H (0.6-1.0) mg/dL Est Cr Clr Drug Dosing 33.50 mL/min Estimated GFR (MDRD) 37 L (>60) Glucose 152 H (74-106) mg/dL Calcium 9.0 (8.5-10.1) mg/dL Total Bilirubin 0.3 (0.2-1.0) mg/dL AST 166 H (15-37) U/L ALT 128 H (12-78) U/L Alkaline Phosphatase 209 H (46-116) U/L Total Protein 7.0 (6.4-8.2) g/dL Albumin 2.5 L (3.4-5.0) g/dL Globulin 4.5 H (2.3-3.5) g/dL Albumin/Globulin Ratio 0.6 L (1.2-2.2) Med Orders - Current: Current Medications Acetaminophen (Acetaminophen 325 Mg Tab) 650 mg PO Q4H PRN PRN Reason: Pain (Mild 1-3)/fever Allopurinol (Allopurinol 100 Mg Tab) 100 mg PO DAILY [facility] Last Admin: 08/14/21 08:37 Dose: 100 mg Documented by: Aspirin (Aspirin 81 Mg Tab.Ec) 81 mg PO DAILY [facility] Last Admin: 08/14/21 08:37 Dose: 81 mg Documented by: Baricitinib (Baricitinib 2 Mg Tab) 2 mg PO DAILY [facility] Stop: 08/25/21 09:01 Last Admin: 08/14/21 08:37 Dose: 2 mg Documented by: Benzonatate (Benzonatate 100 Mg Cap) 100 mg PO TID PRN PRN Reason: Cough Last Admin: 08/14/21 13:11 Dose: 100 mg Documented by: Dexamethasone (Dexamethasone 4 Mg/Ml Sdv) 6 mg IVPUSH Q24H [facility] Stop: 08/20/21 17:01 Last Admin: 08/13/21 17:31 Dose: 6 mg Documented by: Enoxaparin Sodium (Enoxaparin 30 Mg/0.3 Ml Syringe) 30 mg SUBCUT Q24H [facility] Last Admin: 08/13/21 20:54 Dose: 30 mg Documented by: Guaifenesin/Dextromethorphan (Guaifenesin/Dextromethorphan 100-10 Mg/5 Ml Soln 10 Ml Cup) 10 ml PO Q4H PRN PRN Reason: Cough Last Admin: 08/14/21 13:11 Dose: 10 ml Documented by: Ceftriaxone Sodium 2 gm/ (Sodium Chloride) 50 mls @ 100 mls/hr IV Q24H [facility] Last Admin: 08/13/21 20:55 Dose: 100 mls/hr Documented by: Doxycycline Hyclate 100 mg/ (Sodium Chloride) 100 mls @ 100 mls/hr IV Q12H [facility] Last Admin: 08/14/21 08:41 Dose: 100 mls/hr Documented by: Remdesivir 100 mg/ Sodium (Chloride) 100 mls @ 100 mls/hr IV Q24H [facility] Stop: 08/16/21 10:59 Last Admin: 08/14/21 10:14 Dose: 100 mls/hr Documented by: Levothyroxine Sodium 100 mcg/Levothyroxine Sodium 50 mcg/Levothyroxine Sodium 25 mcg 175 mcg PO ACBREAKFAST [facility] Last Admin: 08/14/21 07:36 Dose: 175 mcg Documented by: Lorazepam (Lorazepam 2 Mg/Ml Sdv) 1 mg IVPUSH Q2H PRN PRN Reason: Anxiety Last Admin: 08/11/21 23:33 Dose: 1 mg Documented by: Magnesium Hydroxide (Magnesium Hydroxide 400 Mg/5 Ml Susp 30 Ml Cup) 30 ml PO Q12H PRN PRN Reason: Constipation Melatonin (Melatonin 3 Mg Tab) 9 mg PO BEDTIME PRN PRN Reason: Sleep Last Admin: 08/12/21 21:19 Dose: 9 mg Documented by: Morphine Sulfate (Morphine 2 Mg/Ml Syringe) 2 mg IVPUSH Q2H PRN PRN Reason: air hunger Last Admin: 08/14/21 02:22 Dose: 2 mg Documented by: Ondansetron HCl (Ondansetron 4 Mg/2 Ml Sdv) 4 mg IV Q6H PRN PRN Reason: Nausea/Vomiting Ondansetron HCl (Ondansetron 4 Mg Tab.Dis) 4 mg PO Q6H PRN PRN Reason: Nausea able to take PO Pantoprazole Sodium (Pantoprazole 40 Mg Tab.Cr) 40 mg PO ACBREAKFAST [facility] Last Admin: 08/14/21 07:36 Dose: 40 mg Documented by: Ropinirole HCl (Ropinirole 0.5 Mg Tab) 0.5 mg PO DAILY@1400 [facility] Last Admin: 08/13/21 14:30 Dose: 0.5 mg Documented by: Ropinirole HCl (Ropinirole 1 Mg Tab) 1 mg PO BEDTIME [facility] Last Admin: 08/13/21 20:55 Dose: 1 mg Documented by: Rosuvastatin Calcium (Rosuvastatin 10 Mg Tab) 5 mg PO DAILY [facility] Last Admin: 08/14/21 08:36 Dose: 5 mg Documented by: Senna/Docusate Sodium (Docusate Sodium/Sennosides 50-8.6 Mg Tab) 1 tab PO BID PRN PRN Reason: Constipation Sodium Chloride (Sodium Chloride 0.9% 10 Ml Syringe) 10 ml FLUSH ASDIRECTED PRN PRN Reason: Keep Vein Open Discontinued Medications Baricitinib (Baricitinib 2 Mg Tab) 4 mg PO DAILY [facility] Stop: 08/25/21 09:01 Dexamethasone (Dexamethasone 4 Mg/Ml Sdv) 6 mg IVPUSH ONETIME ONE Stop: 08/11/21 16:40 Last Admin: 08/11/21 16:59 Dose: 6 mg Documented by: Diltiazem HCl (Diltiazem 180 Mg Cap.Cd) 180 mg PO DAILY [facility] Last Admin: 08/13/21 04:18 Dose: Not Given Documented by: Sodium Chloride (Normal Saline) 1,000 mls @ 100 mls/hr IV ASDIRECTED [facility] Stop: 08/12/21 05:41 Doxycycline Hyclate 100 mg/ (Sodium Chloride) 100 mls @ 100 mls/hr IV Q12H [facility] Last Admin: 08/11/21 21:05 Dose: 100 mls/hr Documented by: Remdesivir 200 mg/ Sodium (Chloride) 250 mls @ 250 mls/hr IV ONETIME ONE Stop: 08/12/21 10:29 Last Admin: 08/12/21 11:41 Dose: 250 mls/hr Documented by: Insulin Human Lispro (Insulin Lispro 100 Unit/Ml 3 Ml Kwikpen) 0 unit SUBCUT QIDACANDBED [facility]; Protocol Last Admin: 08/13/21 08:05 Dose: Not Given Documented by: Levothyroxine Sodium (Levothyroxine 100 Mcg Tab) 100 mcg PO ACBREAKFAST [facility] Levothyroxine Sodium (Levothyroxine 50 Mcg Tab) 50 mcg PO ACBREAKFAST [facility] Levothyroxine Sodium (Levothyroxine 25 Mcg Tab) 25 mcg PO ACBREAKFAST [facility] Lorazepam (Lorazepam 2 Mg/Ml Sdv) 0.5 mg IVPUSH Q4H PRN PRN Reason: Nausea/Vomiting Last Admin: 08/11/21 22:13 Dose: 0.5 mg Documented by: Lorazepam (Lorazepam 2 Mg/Ml Sdv) 0.5 mg IVPUSH Q4H PRN PRN Reason: Anxiety Losartan Potassium (Losartan 50 Mg Tab) 50 mg PO DAILY [facility] Last Admin: 08/13/21 04:18 Dose: Not Given Documented by: Non-Formulary Medication (Metformin [Glucophage]) 1,000 mg PO BIDAC [facility] - Exam Quality Assessment: Supplemental Oxygen, Urine Catheter Urinary Catheter Total Time: 2Days 10Hours General: Alert, Oriented, Cooperative, No Acute Distress HEENT: Pupils Equal Lungs: Normal Respiratory Effort, Crackles (Few both bases) Cardiovascular: Regular Rate, Regular Rhythm GI/Abdominal Exam: Soft, No Distention Extremities: No Pedal Edema. No: Increased Warmth Skin: Warm, Dry Psy/Mental Status: Alert, Normal Affect - Patient Data Lab Results Last 24 hrs: Laboratory Results - last 24 hr 08/14/21 Range/Units 06:10 Sodium 146 (140-148) mmol/L Potassium 4.9 (3.6-5.2) mmol/L Chloride 111 H (100-108) mmol/L Carbon Dioxide 22 (21-32) mmol/L Anion Gap 17.9 H (5.0-14.0) mmol/L BUN 45 H (7-18) mg/dL Creatinine 1.4 H (0.6-1.0) mg/dL Est Cr Clr Drug Dosing 33.50 mL/min Estimated GFR (MDRD) 37 L (>60) Glucose 152 H (74-106) mg/dL Calcium 9.0 (8.5-10.1) mg/dL Total Bilirubin 0.3 (0.2-1.0) mg/dL AST 166 H (15-37) U/L ALT 128 H (12-78) U/L Alkaline Phosphatase 209 H (46-116) U/L Total Protein 7.0 (6.4-8.2) g/dL Albumin 2.5 L (3.4-5.0) g/dL Globulin 4.5 H (2.3-3.5) g/dL Albumin/Globulin Ratio 0.6 L (1.2-2.2) Result Diagrams: 08/13/21 06:17 08/14/21 06:10 Sepsis Event Note - Evaluation Sepsis Screening Result: No Definite Risk - Focused Exam Vital Signs: Vital Signs Temp Pulse Resp BP Pulse Ox 08/14/21 12:00 36.3 C 19 124/59 L 98 08/14/21 10:00 25 H 123/59 L 94 L 08/14/21 08:00 35.8 C L 62 20 119/65 95 08/14/21 06:00 63 15 123/62 89 L 08/14/21 04:00 36.8 C 58 L 17 114/60 94 L 08/14/21 02:00 81 27 H 116/55 L 91 L - Problem List & Annotations (1) Pneumonia due to COVID-19 virus SNOMED Code(s): 790598894629850912 Code(s): U07.1 - COVID-19; J12.82 - PNEUMONIA DUE TO CORONAVIRUS DISEASE 2019 Status: Acute Current Visit: Yes (2) Acute respiratory failure with hypoxia SNOMED Code(s): 37996810, 074621356 Code(s): J96.01 - ACUTE RESPIRATORY FAILURE WITH HYPOXIA Status: Acute C urrent Visit: Yes (3) Acute kidney injury SNOMED Code(s): 57068557, 08802277 Code(s): N17.9 - ACUTE KIDNEY FAILURE, UNSPECIFIED Status: Acute Current Visit: Yes (4) Type 2 diabetes mellitus SNOMED Code(s): 71625071 Code(s): E11.9 - TYPE 2 DIABETES MELLITUS WITHOUT COMPLICATIONS Status: Chronic Current Visit: Yes Qualifiers: Diabetes mellitus retirement insulin use: without predatory animal exterminator use Diabetes mellitus complication status: without complication Qualified Code(s): E11.9 - Type 2 diabetes mellitus without complications (5) Obesity, morbid, BMI 40.0-49.9 SNOMED Code(s): 228540127, 617600343, 75824642239260 Code(s): E66.01 - MORBID (SEVERE) OBESITY DUE TO EXCESS CALORIES Status: Chronic Current Visit: Yes - Problem List Review Problem List Initiated/Reviewed/Updated: Yes - My Orders Last 24 Hours: My Active Orders 08/15/21 00:15 Insert Pacheco Catheter [Insert Urinary Catheter] [OM.PC] Q24H 08/15/21 05:00 CBC W/O DIFF,HEMOGRAM [HEME] Timed (1) COMPREHENSIVE METABOLIC PN,CMP [CHEM] Timed CRP [C-REACTIVE PROTEIN] [CHEM] Timed D-DIMER QUANTITATIVE [COAG] Timed PROCALCITONIN [CHEM] Routine - Plan Plan:: ASSESSMENT AND PLAN - COVID-19 pneumonia-complicated by acute respiratory failure with significant supplemental oxygen requirements. Onset of symptoms difficult to determine. Tolerated NIPPV well and has been transition to heated/high flow nasal cannula. Symptomatically feeling fairly good. Seems to be clinically improving but remains quite compromised. -Dexamethasone 6 mg every 24 hours (day 4) -Enoxaparin every 24 hours -remdesivir x 5 days -Continue baricitinib (day 3) -Supplemental oxygen with heated/high flow oxygen, wean as able -Covid isolation Acute kidney injury-likely due to intravascular volume depletion. Improved over the past 24 hours but not quite back to baseline. - labs in the morning Type 2 diabetes mellitus-usually controlled with oral agents. Sugars have been stable even with the steroids. -Restart Metformin if GFR improves a little further -Continue other home medications Morbid obesity BMI greater than 40- Maintenance issues - -DVT prophylaxis-enoxaparin -GI prophylaxis-not indicated -Nutrition-diabetic -Pacheco catheter-placed for strict intake and output monitoring in a critical patient as well as to reduce the work of breathing with severe respiratory infection Disposition -I anticipate discharge home after the hospital stay Kevin Ludwig M.D.
[2021-08-14] MEDS: rOPINIRole 0.5 MG Tab PO SCH (14:03)
[2021-08-14] MEDS: LORazepam 2 MG/ML SDV IVPUSH PRN (15:22)
[2021-08-14] MEDS: Dexamethasone 4 MG/ML SDV IVPUSH SCH (17:11)
[2021-08-14] MEDS: Enoxaparin 30 MG/0.3 ML Syringe SUBCUT SCH (20:31)
[2021-08-14] MEDS: rOPINIRole 1 MG Tab PO SCH (20:32)
[2021-08-14] MEDS: cefTRIAXone 2 GM in Sodium Chloride 0.9% 50 ML IV SCH (20:32)
[2021-08-15] MEDS: Morphine 2 MG/ML SYRINGE IVPUSH PRN ×2 (00:11→04:26)
[2021-08-15] MEDS: Melatonin 3 MG Tab PO PRN ×2 (00:59→20:36)
[2021-08-15] MEDS: Levothyroxine 100 MCG, Levothyroxine 50 MCG, Levothyroxine 25 MCG PO SCH ×3 (08:14)
[2021-08-15] MEDS: Pantoprazole 40 MG Tab.CR PO SCH (08:14)
--- NOTE | 2021-08-15 09:09 | PCM.PN ---
- General Info Date of Service: 08/15/21 Subjective Update: No acute events overnight. Patient reports she is feeling even better again today. Less shortness of breath. Appetite is coming back. Strength is a little better. Still requiring a fair amount of support from the heated/high flow oxygen. Respiratory rate is in the low 20s. No fevers. No nausea or diarrhea. Functional Status: Reports: Pain Controlled, Tolerating Diet - Review of Systems General: Reports: Weakness Pulmonary: Reports: Shortness of Breath - Patient Data Vitals - Most Recent: Last Vital Signs Temp 36.4 C 08/15/21 04:00 Pulse 53 L 08/15/21 05:36 Resp 23 H 08/15/21 05:36 BP 122/60 08/15/21 05:36 Pulse Ox 97 08/15/21 05:36 Weight - Most Recent: 117.934 kg I&O - Last 24 Hours: Intake & Output 08/14/21 08/15/21 08/15/21 22:59 06:59 14:59 Intake Total 1200 270 60 Output Total 875 950 Balance 325 -680 60 Lab Results Last 24 Hours: Laboratory Results - last 24 hr 08/15/21 08/15/21 08/15/21 Range/Units 05:03 05:03 05:03 WBC 14.7 H (4.5-11.0) K/uL RBC 4.02 (3.30-5.50) M/uL Hgb 9.5 L (12.0-15.0) g/dL Hct 32.4 L (36.0-48.0) % MCV 81 (80-98) fL MCH 24 L (27-31) pg MCHC 29 L (32-36) % Plt Count 380 (150-400) K/uL D-Dimer, Quantitative 1796.83 H (0.0-500.0) ng/mL Sodium 145 (140-148) mmol/L Potassium 4.8 (3.6-5.2) mmol/L Chloride 111 H (100-108) mmol/L Carbon Dioxide 20 L (21-32) mmol/L Anion Gap 18.8 H (5.0-14.0) mmol/L BUN 46 H (7-18) mg/dL Creatinine 1.3 H (0.6-1.0) mg/dL Est Cr Clr Drug Dosing 36.08 mL/min Estimated GFR (MDRD) 40 L (>60) Glucose 145 H (74-106) mg/dL Calcium 9.0 (8.5-10.1) mg/dL Total Bilirubin 0.3 (0.2-1.0) mg/dL AST 150 H (15-37) U/L ALT 145 H (12-78) U/L Alkaline Phosphatase 201 H (46-116) U/L C-Reactive Protein 1.62 H (0.0-0.3) mg/dL Total Protein 6.7 (6.4-8.2) g/dL Albumin 2.5 L (3.4-5.0) g/dL Globulin 4.2 H (2.3-3.5) g/dL Albumin/Globulin Ratio 0.6 L (1.2-2.2) Procalcitonin ng/mL 08/15/21 Range/Units 05:03 WBC (4.5-11.0) K/uL RBC (3.30-5.50) M/uL Hgb (12.0-15.0) g/dL Hct (36.0-48.0) % MCV (80-98) fL MCH (27-31) pg MCHC (32-36) % Plt Count (150-400) K/uL D-Dimer, Quantitative (0.0-500.0) ng/mL Sodium (140-148) mmol/L Potassium (3.6-5.2) mmol/L Chloride (100-108) mmol/L Carbon Dioxide (21-32) mmol/L Anion Gap (5.0-14.0) mmol/L BUN (7-18) mg/dL Creatinine (0.6-1.0) mg/dL Est Cr Clr Drug Dosing mL/min Estimated GFR (MDRD) (>60) Glucose (74-106) mg/dL Calcium (8.5-10.1) mg/dL Total Bilirubin (0.2-1.0) mg/dL AST (15-37) U/L ALT (12-78) U/L Alkaline Phosphatase (46-116) U/L C-Reactive Protein (0.0-0.3) mg/dL Total Protein (6.4-8.2) g/dL Albumin (3.4-5.0) g/dL Globulin (2.3-3.5) g/dL Albumin/Globulin Ratio (1.2-2.2) Procalcitonin 0.33 ng/mL Med Orders - Current: Current Medications Acetaminophen (Acetaminophen 325 Mg Tab) 650 mg PO Q4H PRN PRN Reason: Pain (Mild 1-3)/fever Last Admin: 08/14/21 23:59 Dose: 650 mg Documented by: Allopurinol (Allopurinol 100 Mg Tab) 100 mg PO DAILY [facility] Last Admin: 08/14/21 08:37 Dose: 100 mg Documented by: Aspirin (Aspirin 81 Mg Tab.Ec) 81 mg PO DAILY [facility] Last Admin: 08/14/21 08:37 Dose: 81 mg Documented by: Baricitinib (Baricitinib 2 Mg Tab) 2 mg PO DAILY [facility] Stop: 08/25/21 09:01 Last Admin: 08/14/21 08:37 Dose: 2 mg Documented by: Benzonatate (Benzonatate 100 Mg Cap) 100 mg PO TID PRN PRN Reason: Cough Last Admin: 08/14/21 23:59 Dose: 100 mg Documented by: Dexamethasone (Dexamethasone 4 Mg/Ml Sdv) 6 mg IVPUSH Q24H [facility] Stop: 08/20/21 17:01 Last Admin: 08/14/21 17:11 Dose: 6 mg Documented by: Enoxaparin Sodium (Enoxaparin 30 Mg/0.3 Ml Syringe) 30 mg SUBCUT Q24H [facility] Last Admin: 08/14/21 20:31 Dose: 30 mg Documented by: Guaifenesin/Dextromethorphan (Guaifenesin/Dextromethorphan 100-10 Mg/5 Ml Soln 10 Ml Cup) 10 ml PO Q4H PRN PRN Reason: Cough Last Admin: 08/14/21 13:11 Dose: 10 ml Documented by: Ceftriaxone Sodium 2 gm/ (Sodium Chloride) 50 mls @ 100 mls/hr IV Q24H [facility] Last Admin: 08/14/21 20:32 Dose: 100 mls/hr Documented by: Doxycycline Hyclate 100 mg/ (Sodium Chloride) 100 mls @ 100 mls/hr IV Q12H [facility] Last Admin: 08/14/21 21:40 Dose: 100 mls/hr Documented by: Remdesivir 100 mg/ Sodium (Chloride) 100 mls @ 100 mls/hr IV Q24H [facility] Stop: 08/16/21 10:59 Last Admin: 08/14/21 10:14 Dose: 100 mls/hr Documented by: Levothyroxine Sodium 100 mcg/Levothyroxine Sodium 50 mcg/Levothyroxine Sodium 25 mcg 175 mcg PO ACBREAKFAST [facility] Last Admin: 08/15/21 08:14 Dose: 175 mcg Documented by: Lorazepam (Lorazepam 2 Mg/Ml Sdv) 1 mg IVPUSH Q2H PRN PRN Reason: Anxiety Last Admin: 08/14/21 15:22 Dose: 1 mg Documented by: Magnesium Hydroxide (Magnesium Hydroxide 400 Mg/5 Ml Susp 30 Ml Cup) 30 ml PO Q12H PRN PRN Reason: Constipation Melatonin (Melatonin 3 Mg Tab) 9 mg PO BEDTIME PRN PRN Reason: Sleep Last Admin: 08/15/21 00:59 Dose: 9 mg Documented by: Morphine Sulfate (Morphine 2 Mg/Ml Syringe) 2 mg IVPUSH Q2H PRN PRN Reason: air hunger Last Admin: 08/15/21 04:26 Dose: 2 mg Documented by: Ondansetron HCl (Ondansetron 4 Mg/2 Ml Sdv) 4 mg IV Q6H PRN PRN Reason: Nausea/Vomiting Ondansetron HCl (Ondansetron 4 Mg Tab.Dis) 4 mg PO Q6H PRN PRN Reason: Nausea able to take PO Pantoprazole Sodium (Pantoprazole 40 Mg Tab.Cr) 40 mg PO ACBREAKFAST [facility] Last Admin: 08/15/21 08:14 Dose: 40 mg Documented by: Ropinirole HCl (Ropinirole 0.5 Mg Tab) 0.5 mg PO DAILY@1400 [facility] Last Admin: 08/14/21 14:03 Dose: 0.5 mg Documented by: Ropinirole HCl (Ropinirole 1 Mg Tab) 1 mg PO BEDTIME [facility] Last Admin: 08/14/21 20:32 Dose: 1 mg Documented by: Rosuvastatin Calcium (Rosuvastatin 10 Mg Tab) 5 mg PO DAILY [facility] Last Admin: 08/14/21 08:36 Dose: 5 mg Documented by: Senna/Docusate Sodium (Docusate Sodium/Sennosides 50-8.6 Mg Tab) 1 tab PO BID PRN PRN Reason: Constipation Sodium Chloride (Sodium Chloride 0.9% 10 Ml Syringe) 10 ml FLUSH ASDIRECTED PRN PRN Reason: Keep Vein Open Discontinued Medications Baricitinib (Baricitinib 2 Mg Tab) 4 mg PO DAILY [facility] Stop: 08/25/21 09:01 Dexamethasone (Dexamethasone 4 Mg/Ml Sdv) 6 mg IVPUSH ONETIME ONE Stop: 08/11/21 16:40 Last Admin: 08/11/21 16:59 Dose: 6 mg Documented by: Diltiazem HCl (Diltiazem 180 Mg Cap.Cd) 180 mg PO DAILY [facility] Last Admin: 08/13/21 04:18 Dose: Not Given Documented by: Sodium Chloride (Normal Saline) 1,000 mls @ 100 mls/hr IV ASDIRECTED [facility] Stop: 08/12/21 05:41 Doxycycline Hyclate 100 mg/ (Sodium Chloride) 100 mls @ 100 mls/hr IV Q12H [facility] Last Admin: 08/11/21 21:05 Dose: 100 mls/hr Documented by: Remdesivir 200 mg/ Sodium (Chloride) 250 mls @ 250 mls/hr IV ONETIME ONE Stop: 08/12/21 10:29 Last Admin: 08/12/21 11:41 Dose: 250 mls/hr Documented by: Insulin Human Lispro (Insulin Lispro 100 Unit/Ml 3 Ml Kwikpen) 0 unit SUBCUT QIDACANDBED [facility]; Protocol Last Admin: 08/13/21 08:05 Dose: Not Given Documented by: Levothyroxine Sodium (Levothyroxine 100 Mcg Tab) 100 mcg PO ACBREAKFAST [facility] Levothyroxine Sodium (Levothyroxine 50 Mcg Tab) 50 mcg PO ACBREAKFAST [facility] Levothyroxine Sodium (Levothyroxine 25 Mcg Tab) 25 mcg PO ACBREAKFAST [facility] Lorazepam (Lorazepam 2 Mg/Ml Sdv) 0.5 mg IVPUSH Q4H PRN PRN Reason: Nausea/Vomiting Last Admin: 08/11/21 22:13 Dose: 0.5 mg Documented by: Lorazepam (Lorazepam 2 Mg/Ml Sdv) 0.5 mg IVPUSH Q4H PRN PRN Reason: Anxiety Losartan Potassium (Losartan 50 Mg Tab) 50 mg PO DAILY [facility] Last Admin: 08/13/21 04:18 Dose: Not Given Documented by: Non-Formulary Medication (Metformin [Glucophage]) 1,000 mg PO BIDAC [facility] - Exam Quality Assessment: Supplemental Oxygen Urinary Catheter Total Time: 2Days 10Hours General: Alert, Oriented, Cooperative, No Acute Distress Lungs: Normal Respiratory Effort, Crackles (rare both bases). No: Wheezing Cardiovascular: Regular Rate, Regular Rhythm GI/Abdominal Exam: Soft, No Distention Extremities: No Pedal Edema. No: Increased Warmth Skin: Warm, Dry Psy/Mental Status: Alert, Normal Affect - Patient Data Lab Results Last 24 hrs: Laboratory Results - last 24 hr 08/15/21 08/15/21 08/15/21 Range/Units 05:03 05:03 05:03 WBC 14.7 H (4.5-11.0) K/uL RBC 4.02 (3.30-5.50) M/uL Hgb 9.5 L (12.0-15.0) g/dL Hct 32.4 L (36.0-48.0) % MCV 81 (80-98) fL MCH 24 L (27-31) pg MCHC 29 L (32-36) % Plt Count 380 (150-400) K/uL D-Dimer, Quantitative 1796.83 H (0.0-500.0) ng/mL Sodium 145 (140-148) mmol/L Potassium 4.8 (3.6-5.2) mmol/L Chloride 111 H (100-108) mmol/L Carbon Dioxide 20 L (21-32) mmol/L Anion Gap 18.8 H (5.0-14.0) mmol/L BUN 46 H (7-18) mg/dL Creatinine 1.3 H (0.6-1.0) mg/dL Est Cr Clr Drug Dosing 36.08 mL/min Estimated GFR (MDRD) 40 L (>60) Glucose 145 H (74-106) mg/dL Calcium 9.0 (8.5-10.1) mg/dL Total Bilirubin 0.3 (0.2-1.0) mg/dL AST 150 H (15-37) U/L ALT 145 H (12-78) U/L Alkaline Phosphatase 201 H (46-116) U/L C-Reactive Protein 1.62 H (0.0-0.3) mg/dL Total Protein 6.7 (6.4-8.2) g/dL Albumin 2.5 L (3.4-5.0) g/dL Globulin 4.2 H (2.3-3.5) g/dL Albumin/Globulin Ratio 0.6 L (1.2-2.2) Procalcitonin ng/mL 08/15/21 Range/Units 05:03 WBC (4.5-11.0) K/uL RBC (3.30-5.50) M/uL Hgb (12.0-15.0) g/dL Hct (36.0-48.0) % MCV (80-98) fL MCH (27-31) pg MCHC (32-36) % Plt Count (150-400) K/uL D-Dimer, Quantitative (0.0-500.0) ng/mL Sodium (140-148) mmol/L Potassium (3.6-5.2) mmol/L Chloride (100-108) mmol/L Carbon Dioxide (21-32) mmol/L Anion Gap (5.0-14.0) mmol/L BUN (7-18) mg/dL Creatinine (0.6-1.0) mg/dL Est Cr Clr Drug Dosing mL/min Estimated GFR (MDRD) (>60) Glucose (74-106) mg/dL Calcium (8.5-10.1) mg/dL Total Bilirubin (0.2-1.0) mg/dL AST (15-37) U/L ALT (12-78) U/L Alkaline Phosphatase (46-116) U/L C-Reactive Protein (0.0-0.3) mg/dL Total Protein (6.4-8.2) g/dL Albumin (3.4-5.0) g/dL Globulin (2.3-3.5) g/dL Albumin/Globulin Ratio (1.2-2.2) Procalcitonin 0.33 ng/mL Result Diagrams: 08/15/21 05:03 08/15/21 05:03 Sepsis Event Note - Evaluation Sepsis Screening Result: No Definite Risk - Focused Exam Vital Signs: Vital Signs Temp Pulse Resp BP Pulse Ox 08/15/21 05:36 53 L 23 H 122/60 97 08/15/21 04:00 36.4 C 93 22 H 130/76 89 L 08/15/21 02:00 54 L 25 H 98 08/15/21 00:00 36.7 C 68 14 120/57 L 92 L 08/14/21 22:26 98 08/14/21 22:00 60 21 H 110/60 97 - Problem List & Annotations (1) Pneumonia due to COVID-19 virus SNOMED Code(s): 046128248422996300 Code(s): U07.1 - COVID-19; J12.82 - PNEUMONIA DUE TO CORONAVIRUS DISEASE 2018 Status: Acute Current Visit: Yes (2) Acute respiratory failure with hypoxia SNOMED Code(s): 45284538, 342878607 Code(s): J96.01 - ACUTE RESPIRATORY FAILURE WITH HYPOXIA Status: Acute Current Visit: Yes (3) Acute kidney injury SNOMED Code(s): 29466315, 94901967 Code(s): N17.9 - ACUTE KIDNEY FAILURE, UNSPECIFIED Status: Acute Current Visit: Yes (4) Type 2 diabetes mellitus SNOMED Code(s): 40556199 Code(s): E11.9 - TYPE 2 DIABETES MELLITUS WITHOUT COMPLICATIONS Status: Chronic Current Visit: Yes Qualifiers: Diabetes mellitus chcf insulin use: without parts counterman use Diabetes mellitus complication status: without complication Qualified Code(s): E11.9 - Type 2 diabetes mellitus without complications (5) Obesity, morbid, BMI 40.0-49.9 SNOMED Code(s): 824665713, 639272202, 79918828827813 Code(s): E66.01 - MORBID (SEVERE) OBESITY DUE TO EXCESS CALORIES Status: Chronic Current Visit: Yes - Problem List Review Problem List Initiated/Reviewed/Updated: Yes - My Orders Last 24 Hours: My Active Orders 08/16/21 00:15 Insert Pacheco Catheter [Insert Urinary Catheter] [OM.PC] Q24H 08/16/21 05:00 CBC W/O DIFF,HEMOGRAM [HEME] Timed (1) COMPREHENSIVE METABOLIC PN,CMP [CHEM] Timed - Plan Plan:: ASSESSMENT AND PLAN - COVID-19 pneumonia-complicated by acute respiratory failure with significant supplemental oxygen requirements. Onset of symptoms difficult to determine. Continues to do well with the heated/high flow oxygen. Symptomatically feeling better. Still quite compromised but seems to be slowly improving. CRP has improved significantly. -Dexamethasone 6 mg every 24 hours (day 5) -Enoxaparin every 24 hours -remdesivir x 5 days -Continue baricitinib (day 4) -Supplemental oxygen with heated/high flow oxygen, wean as able -Covid isolation Acute kidney injury-likely due to intravascular volume depletion. Slowly improving but not quite back to baseline. - labs in the morning Type 2 diabetes mellitus-usually controlled with oral agents. Sugars have been stable even with the steroids. -Restart Metformin if GFR improves a little further -Continue other home medications Morbid obesity BMI greater than 40- Maintenance issues - -DVT prophylaxis-enoxaparin -GI prophylaxis-not indicated -Nutrition-diabetic -Pacheco catheter-placed for strict intake and output monitoring in a critical patient as well as to reduce the work of breathing with severe respiratory infection Disposition -I anticipate discharge home after the hospital stay Kevin Ludwig M.D.
[2021-08-15] MEDS: Rosuvastatin 10 MG Tab PO SCH (09:52)
[2021-08-15] MEDS: Aspirin 81 MG Tab.EC PO SCH (09:52)
[2021-08-15] MEDS: Empagliflozin 10 MG Tab PO SCH (09:52)
[2021-08-15] MEDS: Doxycycline 100 MG in Sodium Chloride 0.9% 100 ML IV SCH ×2 (09:53→20:28)
[2021-08-15] MEDS: Allopurinol 100 MG Tab PO SCH (09:53)
[2021-08-15] MEDS: REMDESIVIR 100 MG in Sodium Chloride 0.9% 100 ML IV SCH (11:01)
[2021-08-15] MEDS: rOPINIRole 0.5 MG Tab PO SCH (15:38)
[2021-08-15] MEDS: Dexamethasone 4 MG/ML SDV IVPUSH SCH (16:48)
[2021-08-15] MEDS: cefTRIAXone 2 GM in Sodium Chloride 0.9% 50 ML IV SCH (19:23)
[2021-08-15] MEDS: Enoxaparin 30 MG/0.3 ML Syringe SUBCUT SCH (19:24)
[2021-08-15] MEDS: rOPINIRole 1 MG Tab PO SCH (20:28)
[2021-08-15] MEDS: guaiFENesin/Dextromethorphan 100-10 MG/5 ML Soln 10 ML Cup PO PRN (20:36)
[2021-08-16] MEDS: Pantoprazole 40 MG Tab.CR PO SCH (07:48)
[2021-08-16] MEDS: Levothyroxine 100 MCG, Levothyroxine 50 MCG, Levothyroxine 25 MCG PO SCH ×3 (07:48)
[2021-08-16] MEDS: Doxycycline 100 MG in Sodium Chloride 0.9% 100 ML IV SCH (08:54)
[2021-08-16] MEDS: Aspirin 81 MG Tab.EC PO SCH (08:54)
[2021-08-16] MEDS: Empagliflozin 10 MG Tab PO SCH (08:54)
[2021-08-16] MEDS: Rosuvastatin 10 MG Tab PO SCH (08:54)
--- NOTE | 2021-08-16 09:22 | PCM.PN ---
- General Info Date of Service: 08/16/21 Subjective Update: No acute events overnight. Patient feels well today. She does not report any shortness of breath. She does get hypoxic with activity but less so. FiO2 via the heated/high flow nasal cannula has been decreased. Heart rate and blood pressure have been stable. Blood sugars have been well controlled when checked. No nausea or abdominal pain. Functional Status: Reports: Pain Controlled, Tolerating Diet - Review of Systems Pulmonary: Reports: Shortness of Breath - Patient Data Vitals - Most Recent: Last Vital Signs Temp 36.4 C 08/16/21 08:00 Pulse 60 08/16/21 08:00 Resp 16 08/16/21 08:00 BP 111/64 08/16/21 08:00 Pulse Ox 100 08/16/21 08:00 Weight - Most Recent: 117.934 kg I&O - Last 24 Hours: Intake & Output 08/15/21 08/16/21 08/16/21 22:59 06:59 14:59 Intake Total 1650 450 Output Total 1250 1025 Balance 400 -575 Lab Results Last 24 Hours: Laboratory Results - last 24 hr 08/16/21 08/16/21 Range/Units 05:10 05:10 WBC 15.3 H (4.5-11.0) K/uL RBC 4.04 (3.30-5.50) M/uL Hgb 9.7 L (12.0-15.0) g/dL Hct 33.3 L (36.0-48.0) % MCV 82 (80-98) fL MCH 24 L (27-31) pg MCHC 29 L (32-36) % Plt Count 383 (150-400) K/uL Sodium 143 (140-148) mmol/L Potassium 5.1 (3.6-5.2) mmol/L Chloride 111 H (100-108) mmol/L Carbon Dioxide 19 L (21-32) mmol/L Anion Gap 18.1 H (5.0-14.0) mmol/L BUN 38 H (7-18) mg/dL Creatinine 1.1 H (0.6-1.0) mg/dL Est Cr Clr Drug Dosing 42.64 mL/min Estimated GFR (MDRD) 49 L (>60) Glucose 130 H (74-106) mg/dL Calcium 9.0 (8.5-10.1) mg/dL Total Bilirubin 0.3 (0.2-1.0) mg/dL AST 117 H (15-37) U/L ALT 129 H (12-78) U/L Alkaline Phosphatase 189 H (46-116) U/L Total Protein 6.6 (6.4-8.2) g/dL Albumin 2.5 L (3.4-5.0) g/dL Globulin 4.1 H (2.3-3.5) g/dL Albumin/Globulin Ratio 0.6 L (1.2-2.2) Med Orders - Current: Current Medications Acetaminophen (Acetaminophen 325 Mg Tab) 650 mg PO Q4H PRN PRN Reason: Pain (Mild 1-3)/fever Last Admin: 08/14/21 23:59 Dose: 650 mg Documented by: Allopurinol (Allopurinol 100 Mg Tab) 100 mg PO DAILY [facility] Last Admin: 08/15/21 09:53 Dose: 100 mg Documented by: Aspirin (Aspirin 81 Mg Tab.Ec) 81 mg PO DAILY [facility] Last Admin: 08/16/21 08:54 Dose: 81 mg Documented by: Baricitinib (Baricitinib 2 Mg Tab) 2 mg PO DAILY [facility] Stop: 08/25/21 09:01 Last Admin: 08/16/21 08:54 Dose: 2 mg Documented by: Benzonatate (Benzonatate 100 Mg Cap) 100 mg PO TID PRN PRN Reason: Cough Last Admin: 08/14/21 23:59 Dose: 100 mg Documented by: Dexamethasone (Dexamethasone 4 Mg/Ml Sdv) 6 mg IVPUSH Q24H [facility] Stop: 08/20/21 17:01 Last Admin: 08/15/21 16:48 Dose: 6 mg Documented by: Enoxaparin Sodium (Enoxaparin 30 Mg/0.3 Ml Syringe) 30 mg SUBCUT Q24H [facility] Last Admin: 08/15/21 19:24 Dose: 30 mg Documented by: Guaifenesin/Dextromethorphan (Guaifenesin/Dextromethorphan 100-10 Mg/5 Ml Soln 10 Ml Cup) 10 ml PO Q4H PRN PRN Reason: Cough Last Admin: 08/15/21 20:36 Dose: 10 ml Documented by: Ceftriaxone Sodium 2 gm/ (Sodium Chloride) 50 mls @ 100 mls/hr IV Q24H [facility] Last Admin: 08/15/21 19:23 Dose: 100 mls/hr Documented by: Doxycycline Hyclate 100 mg/ (Sodium Chloride) 100 mls @ 100 mls/hr IV Q12H [facility] Last Admin: 08/16/21 08:54 Dose: 100 mls/hr Documented by: Remdesivir 100 mg/ Sodium (Chloride) 100 mls @ 100 mls/hr IV Q24H [facility] Stop: 08/16/21 10:59 Last Admin: 08/15/21 11:01 Dose: 100 mls/hr Documented by: Levothyroxine Sodium 100 mcg/Levothyroxine Sodium 50 mcg/Levothyroxine Sodium 25 mcg 175 mcg PO ACBREAKFAST [facility] Last Admin: 08/16/21 07:48 Dose: 175 mcg Documented by: Lorazepam (Lorazepam 2 Mg/Ml Sdv) 1 mg IVPUSH Q2H PRN PRN Reason: Anxiety Last Admin: 08/14/21 15:22 Dose: 1 mg Documented by: Magnesium Hydroxide (Magnesium Hydroxide 400 Mg/5 Ml Susp 30 Ml Cup) 30 ml PO Q12H PRN PRN Reason: Constipation Melatonin (Melatonin 3 Mg Tab) 9 mg PO BEDTIME PRN PRN Reason: Sleep Last Admin: 08/15/21 20:36 Dose: 9 mg Documented by: Morphine Sulfate (Morphine 2 Mg/Ml Syringe) 2 mg IVPUSH Q2H PRN PRN Reason: air hunger Last Admin: 08/15/21 04:26 Dose: 2 mg Documented by: Ondansetron HCl (Ondansetron 4 Mg/2 Ml Sdv) 4 mg IV Q6H PRN PRN Reason: Nausea/Vomiting Ondansetron HCl (Ondansetron 4 Mg Tab.Dis) 4 mg PO Q6H PRN PRN Reason: Nausea able to take PO Pantoprazole Sodium (Pantoprazole 40 Mg Tab.Cr) 40 mg PO ACBREAKFAST [facility] Last Admin: 08/16/21 07:48 Dose: 40 mg Documented by: Ropinirole HCl (Ropinirole 0.5 Mg Tab) 0.5 mg PO DAILY@1400 [facility] Last Admin: 08/15/21 15:38 Dose: 0.5 mg Documented by: Ropinirole HCl (Ropinirole 1 Mg Tab) 1 mg PO BEDTIME [facility] Last Admin: 08/15/21 20:28 Dose: 1 mg Documented by: Rosuvastatin Calcium (Rosuvastatin 10 Mg Tab) 5 mg PO DAILY [facility] Last Admin: 08/16/21 08:54 Dose: 5 mg Documented by: Senna/Docusate Sodium (Docusate Sodium/Sennosides 50-8.6 Mg Tab) 1 tab PO BID PRN PRN Reason: Constipation Sodium Chloride (Sodium Chloride 0.9% 10 Ml Syringe) 10 ml FLUSH ASDIRECTED PRN PRN Reason: Keep Vein Open Discontinued Medications Baricitinib (Baricitinib 2 Mg Tab) 4 mg PO DAILY [facility] Stop: 08/25/21 09:01 Dexamethasone (Dexamethasone 4 Mg/Ml Sdv) 6 mg IVPUSH ONETIME ONE Stop: 08/11/21 16:40 Last Admin: 08/11/21 16:59 Dose: 6 mg Documented by: Diltiazem HCl (Diltiazem 180 Mg Cap.Cd) 180 mg PO DAILY [facility] Last Admin: 08/13/21 04:18 Dose: Not Given Documented by: Sodium Chloride (Normal Saline) 1,000 mls @ 100 mls/hr IV ASDIRECTED [facility] Stop: 08/12/21 05:41 Doxycycline Hyclate 100 mg/ (Sodium Chloride) 100 mls @ 100 mls/hr IV Q12H [facility] Last Admin: 08/11/21 21:05 Dose: 100 mls/hr Documented by: Remdesivir 200 mg/ Sodium (Chloride) 250 mls @ 250 mls/hr IV ONETIME ONE Stop: 08/12/21 10:29 Last Admin: 08/12/21 11:41 Dose: 250 mls/hr Documented by: Insulin Human Lispro (Insulin Lispro 100 Unit/Ml 3 Ml Kwikpen) 0 unit SUBCUT QIDACANDBED [facility]; Protocol Last Admin: 08/13/21 08:05 Dose: Not Given Documented by: Levothyroxine Sodium (Levothyroxine 100 Mcg Tab) 100 mcg PO ACBREAKFAST [facility] Levothyroxine Sodium (Levothyroxine 50 Mcg Tab) 50 mcg PO ACBREAKFAST [facility] Levothyroxine Sodium (Levothyroxine 25 Mcg Tab) 25 mcg PO ACBREAKFAST [facility] Lorazepam (Lorazepam 2 Mg/Ml Sdv) 0.5 mg IVPUSH Q4H PRN PRN Reason: Nausea/Vomiting Last Admin: 08/11/21 22:13 Dose: 0.5 mg Documented by: Lorazepam (Lorazepam 2 Mg/Ml Sdv) 0.5 mg IVPUSH Q4H PRN PRN Reason: Anxiety Losartan Potassium (Losartan 50 Mg Tab) 50 mg PO DAILY [facility] Last Admin: 08/13/21 04:18 Dose: Not Given Documented by: Non-Formulary Medication (Metformin [Glucophage]) 1,000 mg PO BIDAC [facility] - Exam Quality Assessment: Supplemental Oxygen Urinary Catheter Total Time: 3Days 21Hours General: Alert, Oriented, Cooperative, No Acute Distress Lungs: Normal Respiratory Effort. No: Wheezing Cardiovascular: Regular Rate, Regular Rhythm GI/Abdominal Exam: Soft, No Distention Skin: Warm, Dry Psy/Mental Status: Alert, Normal Affect - Patient Data Lab Results Last 24 hrs: Laboratory Results - last 24 hr 08/16/21 08/16/21 Range/Units 05:10 05:10 WBC 15.3 H (4.5-11.0) K/uL RBC 4.04 (3.30-5.50) M/uL Hgb 9.7 L (12.0-15.0) g/dL Hct 33.3 L (36.0-48.0) % MCV 82 (80-98) fL MCH 24 L (27-31) pg MCHC 29 L (32-36) % Plt Count 383 (150-400) K/uL Sodium 143 (140-148) mmol/L Potassium 5.1 (3.6-5.2) mmol/L Chloride 111 H (100-108) mmol/L Carbon Dioxide 19 L (21-32) mmol/L Anion Gap 18.1 H (5.0-14.0) mmol/L BUN 38 H (7-18) mg/dL Creatinine 1.1 H (0.6-1.0) mg/dL Est Cr Clr Drug Dosing 42.64 mL/min Estimated GFR (MDRD) 49 L (>60) Glucose 130 H (74-106) mg/dL Calcium 9.0 (8.5-10.1) mg/dL Total Bilirubin 0.3 (0.2-1.0) mg/dL AST 117 H (15-37) U/L ALT 129 H (12-78) U/L Alkaline Phosphatase 189 H (46-116) U/L Total Protein 6.6 (6.4-8.2) g/dL Albumin 2.5 L (3.4-5.0) g/dL Globulin 4.1 H (2.3-3.5) g/dL Albumin/Globulin Ratio 0.6 L (1.2-2.2) Result Diagrams: 08/16/21 05:10 08/16/21 05:10 Sepsis Event Note - Evaluation Sepsis Screening Result: No Definite Risk - Focused Exam Vital Signs: Vital Signs Temp Pulse Resp BP Pulse Ox 08/16/21 08:00 36.4 C 60 16 111/64 100 08/16/21 06:00 24 H 147/83 H 98 08/16/21 04:00 36.4 C 26 H 118/55 L 97 08/16/21 02:00 36.3 C 14 123/66 95 08/16/21 00:00 36.2 C 23 H 119/65 95 08/15/21 22:00 24 H 113/53 L 96 - Problem List & Annotations (1) Pneumonia due to COVID-19 virus SNOMED Code(s): 414984822279105224 Code(s): U07.1 - COVID-19; J12.82 - PNEUMONIA DUE TO CORONAVIRUS DISEASE 2019 Status: Acute Current Visit: Yes (2) Acute respiratory failure with hypoxia SNOMED Code(s): 72222562, 092281199 Code(s): J96.01 - ACUTE RESPIRATORY FAILURE WITH HYPOXIA Status: Acute Current Visit: Yes (3) Acute kidney injury SNOMED Code(s): 22445080, 18199558 Code(s): N17.9 - ACUTE KIDNEY FAILURE, UNSPECIFIED Status: Acute Current Visit: Yes (4) Type 2 diabetes mellitus SNOMED Code(s): 16380904 Code(s): E11.9 - TYPE 2 DIABETES MELLITUS WITHOUT COMPLICATIONS Status: Chronic Current Visit: Yes Qualifiers: Diabetes mellitus terminal superintendent insulin use: without intermediate use Diabetes mellitus complication status: without complication Qualified Code(s): E11.9 - Type 2 diabetes mellitus without complications (5) Obesity, morbid, BMI 40.0-49.9 SNOMED Code(s): 671486500, 262794261, 22745510076839 Code(s): E66.01 - MORBID (SEVERE) OBESITY DUE TO EXCESS CALORIES Status: Chronic Current Visit: Yes - Problem List Review Problem List Initiated/Reviewed/Updated: Yes - My Orders Last 24 Hours: My Active Orders 08/16/21 09:19 Transfer Patient (Change bed) [ADT] Routine Up With Assistance [RC] ASDIRECTED 08/16/21 09:21 Discontinue Telemetry Monitoring [Cardiac Monitoring Discontinue] [RC] Click to Edit 08/17/21 00:15 Insert Pacheco Catheter [Insert Urinary Catheter] [OM.PC] Q24H 08/17/21 05:00 CBC W/O DIFF,HEMOGRAM [HEME] Timed (1) COMPREHENSIVE METABOLIC PN,CMP [CHEM] Timed CRP [C-REACTIVE PROTEIN] [CHEM] Timed D-DIMER QUANTITATIVE [COAG] Timed - Plan Plan:: ASSESSMENT AND PLAN - COVID-19 pneumonia-complicated by acute respiratory failure with significant supplemental oxygen requirements. Onset of symptoms difficult to determine. Supplemental oxygen requirements are decreasing. Clinically the patient feels well. She is stable for discharge out of the intensive care unit today. -Dexamethasone 6 mg every 24 hours (day 6) -Enoxaparin every 24 hours -remdesivir x 5 days -Continue baricitinib (day 5) -Supplemental oxygen with heated/high flow oxygen, wean as able -Covid isolation Acute kidney injury-likely due to intravascular volume depletion. Slowly improving each day. - labs in the morning Type 2 diabetes mellitus-usually controlled with oral agents. Sugars have been stable even with the steroids. -Restart Metformin tomorrow -Continue other home medications Morbid obesity BMI greater than 40- Maintenance issues - -DVT prophylaxis-enoxaparin -GI prophylaxis-not indicated -Nutrition-diabetic -Pacheco catheter-placed for strict intake and output monitoring in a critical patient as well as to reduce the work of breathing with severe respiratory infection. Plan to reassess tomorrow and likely can remove Disposition -I anticipate discharge home after the hospital stay. Patient ready for transfer out of the ICU. Kevin Ludwig M.D.
[2021-08-16] MEDS: Allopurinol 100 MG Tab PO SCH (10:27)
[2021-08-16] MEDS: REMDESIVIR 100 MG in Sodium Chloride 0.9% 100 ML IV SCH (10:28)
[2021-08-16] MEDS: Benzonatate 100 MG Cap PO PRN (13:30)
[2021-08-16] MEDS: rOPINIRole 0.5 MG Tab PO SCH (13:30)
[2021-08-16] MEDS: Dexamethasone 4 MG/ML SDV IVPUSH SCH ×2 (17:35→17:50)
[2021-08-16] MEDS: Dexamethasone 2 MG Tab PO SCH (17:58)
[2021-08-16] MEDS: Enoxaparin 30 MG/0.3 ML Syringe SUBCUT SCH (22:15)
[2021-08-16] MEDS: rOPINIRole 1 MG Tab PO SCH (22:15)
[2021-08-16] MEDS: Melatonin 3 MG Tab PO PRN (22:16)
[2021-08-16] MEDS: Doxycycline 100 MG Cap PO SCH (22:27)
[2021-08-17] MEDS: Empagliflozin 10 MG Tab PO SCH (08:42)
[2021-08-17] MEDS: Allopurinol 100 MG Tab PO SCH (08:42)
[2021-08-17] MEDS: Pantoprazole 40 MG Tab.CR PO SCH (08:42)
[2021-08-17] MEDS: Furosemide 20 MG Tab PO SCH (08:42)
[2021-08-17] MEDS: Aspirin 81 MG Tab.EC PO SCH (08:42)
[2021-08-17] MEDS: Levothyroxine 100 MCG, Levothyroxine 50 MCG, Levothyroxine 25 MCG PO SCH ×3 (08:43)
[2021-08-17] MEDS: Doxycycline 100 MG Cap PO SCH ×3 (08:48→22:36)
[2021-08-17] MEDS: Rosuvastatin 10 MG Tab PO SCH (08:49)
[2021-08-17] MEDS: metFORMIN 500 MG Tab PO SCH ×3 (09:13→17:47)
[2021-08-17] MEDS: rOPINIRole 0.5 MG Tab PO SCH (13:01)
--- NOTE | 2021-08-17 14:02 | PCM.PN ---
- General Info Date of Service: 08/17/21 Subjective Update: No acute events overnight. Supplemental oxygen requirement has continued to decrease. Patient reports that she feels well. She does not report significant dyspnea. Appetite is improving. Heart rate and blood pressure have been stable. D-dimer slightly higher but CRP is decreasing. No fevers. Asking when she can go home. Functional Status: Reports: Pain Controlled, Tolerating Diet - Review of Systems Pulmonary: Reports: Shortness of Breath - Patient Data Vitals - Most Recent: Last Vital Signs Temp 36.9 C 08/17/21 10:43 Pulse 70 08/17/21 10:43 Resp 18 08/17/21 10:43 BP 112/66 08/17/21 10:43 Pulse Ox 96 08/17/21 12:58 Weight - Most Recent: 117.934 kg I&O - Last 24 Hours: Intake & Output 08/16/21 08/17/21 08/17/21 22:59 06:59 14:59 Intake Total 820 Output Total 2250 450 Balance -1430 -450 Lab Results Last 24 Hours: Laboratory Results - last 24 hr 08/16/21 08/16/21 08/17/21 Range/Units 16:39 21:02 04:10 WBC 14.9 H (4.5-11.0) K/uL RBC 4.24 (3.30-5.50) M/uL Hgb 10.0 L (12.0-15.0) g/dL Hct 34.1 L (36.0-48.0) % MCV 80 (80-98) fL MCH 24 L (27-31) pg MCHC 29 L (32-36) % Plt Count 393 (150-400) K/uL D-Dimer, Quantitative (0.0-500.0) ng/mL Sodium (140-148) mmol/L Potassium (3.6-5.2) mmol/L Chloride (100-108) mmol/L Carbon Dioxide (21-32) mmol/L Anion Gap (5.0-14.0) mmol/L BUN (7-18) mg/dL Creatinine (0.6-1.0) mg/dL Est Cr Clr Drug Dosing mL/min Estimated GFR (MDRD) (>60) Glucose (74-106) mg/dL POC Glucose 103 140 H (74-106) mg/dL Calcium (8.5-10.1) mg/dL Total Bilirubin (0.2-1.0) mg/dL AST (15-37) U/L ALT (12-78) U/L Alkaline Phosphatase (46-116) U/L C-Reactive Protein (0.0-0.3) mg/dL Total Protein (6.4-8.2) g/dL Albumin (3.4-5.0) g/dL Globulin (2.3-3.5) g/dL Albumin/Globulin Ratio (1.2-2.2) 08/17/21 08/17/21 08/17/21 Range/Units 04:10 04:10 07:33 WBC (4.5-11.0) K/uL RBC (3.30-5.50) M/uL Hgb (12.0-15.0) g/dL Hct (36.0-48.0) % MCV (80-98) fL MCH (27-31) pg MCHC (32-36) % Plt Count (150-400) K/uL D-Dimer, Quantitative 2145.88 H (0.0-500.0) ng/mL Sodium 144 (140-148) mmol/L Potassium 5.0 (3.6-5.2) mmol/L Chloride 110 H (100-108) mmol/L Carbon Dioxide 22 (21-32) mmol/L Anion Gap 17.0 H (5.0-14.0) mmol/L BUN 32 H (7-18) mg/dL Creatinine 1.1 H (0.6-1.0) mg/dL Est Cr Clr Drug Dosing 42.64 mL/min Estimated GFR (MDRD) 49 L (>60) Glucose 166 H (74-106) mg/dL POC Glucose 121 H (74-106) mg/dL Calcium 9.0 (8.5-10.1) mg/dL Total Bilirubin 0.4 (0.2-1.0) mg/dL AST 73 H (15-37) U/L ALT 119 H (12-78) U/L Alkaline Phosphatase 179 H (46-116) U/L C-Reactive Protein 1.16 H (0.0-0.3) mg/dL Total Protein 6.6 (6.4-8.2) g/dL Albumin 2.6 L (3.4-5.0) g/dL Globulin 4.0 H (2.3-3.5) g/dL Albumin/Globulin Ratio 0.7 L (1.2-2.2) 08/17/21 Range/Units 11:26 WBC (4.5-11.0) K/uL RBC (3.30-5.50) M/uL Hgb (12.0-15.0) g/dL Hct (36.0-48.0) % MCV (80-98) fL MCH (27-31) pg MCHC (32-36) % Plt Count (150-400) K/uL D-Dimer, Quantitative (0.0-500.0) ng/mL Sodium (140-148) mmol/L Potassium (3.6-5.2) mmol/L Chloride (100-108) mmol/L Carbon Dioxide (21-32) mmol/L Anion Gap (5.0-14.0) mmol/L BUN (7-18) mg/dL Creatinine (0.6-1.0) mg/dL Est Cr Clr Drug Dosing mL/min Estimated GFR (MDRD) (>60) Glucose (74-106) mg/dL POC Glucose 137 H (74-106) mg/dL Calcium (8.5-10.1) mg/dL Total Bilirubin (0.2-1.0) mg/dL AST (15-37) U/L ALT (12-78) U/L Alkaline Phosphatase (46-116) U/L C-Reactive Protein (0.0-0.3) mg/dL Total Protein (6.4-8.2) g/dL Albumin (3.4-5.0) g/dL Globulin (2.3-3.5) g/dL Albumin/Globulin Ratio (1.2-2.2) Med Orders - Current: Current Medications Acetaminophen (Acetaminophen 325 Mg Tab) 650 mg PO Q4H PRN PRN Reason: Pain (Mild 1-3)/fever Last Admin: 08/14/21 23:59 Dose: 650 mg Documented by: Allopurinol (Allopurinol 100 Mg Tab) 100 mg PO DAILY [facility] Last Admin: 08/17/21 08:42 Dose: 100 mg Documented by: Aspirin (Aspirin 81 Mg Tab.Ec) 81 mg PO DAILY [facility] Last Admin: 08/17/21 08:42 Dose: 81 mg Documented by: Baricitinib (Baricitinib 2 Mg Tab) 2 mg PO DAILY [facility] Stop: 08/25/21 09:01 Last Admin: 08/17/21 08:42 Dose: 2 mg Documented by: Benzonatate (Benzonatate 100 Mg Cap) 100 mg PO TID PRN PRN Reason: Cough Last Admin: 08/16/21 13:30 Dose: 100 mg Documented by: Dexamethasone (Dexamethasone 2 Mg Tab) 6 mg PO Q24H [facility] Last Admin: 08/16/21 17:58 Dose: 6 mg Documented by: Doxycycline Hyclate (Doxycycline 100 Mg Cap) 100 mg PO BID [facility] Stop: 08/17/21 23:00 Last Admin: 08/17/21 08:48 Dose: 100 mg Documented by: Enoxaparin Sodium (Enoxaparin 30 Mg/0.3 Ml Syringe) 30 mg SUBCUT Q24H [facility] Last Admin: 08/16/21 22:15 Dose: 30 mg Documented by: Furosemide (Furosemide 20 Mg Tab) 20 mg PO DAILY [facility] Last Admin: 08/17/21 08:42 Dose: 20 mg Documented by: Guaifenesin/Dextromethorphan (Guaifenesin/Dextromethorphan 100-10 Mg/5 Ml Soln 10 Ml Cup) 10 ml PO Q4H PRN PRN Reason: Cough Last Admin: 08/15/21 20:36 Dose: 10 ml Documented by: Levothyroxine Sodium 100 mcg/Levothyroxine Sodium 50 mcg/Levothyroxine Sodium 25 mcg 175 mcg PO ACBREAKFAST [facility] Last Admin: 08/17/21 08:43 Dose: 175 mcg Documented by: Lorazepam (Lorazepam 2 Mg/Ml Sdv) 1 mg IVPUSH Q2H PRN PRN Reason: Anxiety Last Admin: 08/14/21 15:22 Dose: 1 mg Documented by: Magnesium Hydroxide (Magnesium Hydroxide 400 Mg/5 Ml Susp 30 Ml Cup) 30 ml PO Q12H PRN PRN Reason: Constipation Melatonin (Melatonin 3 Mg Tab) 9 mg PO BEDTIME PRN PRN Reason: Sleep Last Admin: 08/16/21 22:16 Dose: 9 mg Documented by: Metformin HCl (Metformin 500 Mg Tab) 1,000 mg PO BIDMEALS [facility] Last Admin: 08/17/21 09:14 Dose: Not Given Documented by: Morphine Sulfate (Morphine 2 Mg/Ml Syringe) 2 mg IVPUSH Q2H PRN PRN Reason: air hunger Last Admin: 08/15/21 04:26 Dose: 2 mg Documented by: Ondansetron HCl (Ondansetron 4 Mg/2 Ml Sdv) 4 mg IV Q6H PRN PRN Reason: Nausea/Vomiting Ondansetron HCl (Ondansetron 4 Mg Tab.Dis) 4 mg PO Q6H PRN PRN Reason: Nausea able to take PO Pantoprazole Sodium (Pantoprazole 40 Mg Tab.Cr) 40 mg PO ACBREAKFAST [facility] Last Admin: 08/17/21 08:42 Dose: 40 mg Documented by: Ropinirole HCl (Ropinirole 0.5 Mg Tab) 0.5 mg PO DAILY@1400 [facility] Last Admin: 08/17/21 13:01 Dose: 0.5 mg Documented by: Ropinirole HCl (Ropinirole 1 Mg Tab) 1 mg PO BEDTIME [facility] Last Admin: 08/16/21 22:15 Dose: 1 mg Documented by: Rosuvastatin Calcium (Rosuvastatin 10 Mg Tab) 5 mg PO DAILY [facility] Last Admin: 08/17/21 08:49 Dose: 5 mg Documented by: Senna/Docusate Sodium (Docusate Sodium/Sennosides 50-8.6 Mg Tab) 1 tab PO BID PRN PRN Reason: Constipation Sodium Chloride (Sodium Chloride 0.9% 10 Ml Syringe) 10 ml FLUSH ASDIRECTED PRN PRN Reason: Keep Vein Open Discontinued Medications Baricitinib (Baricitinib 2 Mg Tab) 4 mg PO DAILY [facility] Stop: 08/25/21 09:01 Dexamethasone (Dexamethasone 4 Mg/Ml Sdv) 6 mg IVPUSH ONETIME ONE Stop: 08/11/21 16:40 Last Admin: 08/11/21 16:59 Dose: 6 mg Documented by: Dexamethasone (Dexamethasone 4 Mg/Ml Sdv) 6 mg IVPUSH Q24H [facility] Stop: 08/20/21 17:01 Last Admin: 08/16/21 17:50 Dose: Not Given Documented by: Diltiazem HCl (Diltiazem 180 Mg Cap.Cd) 180 mg PO DAILY [facility] Last Admin: 08/13/21 04:18 Dose: Not Given Documented by: Ceftriaxone Sodium 2 gm/ (Sodium Chloride) 50 mls @ 100 mls/hr IV Q24H [facility] Last Admin: 08/15/21 19:23 Dose: 100 mls/hr Documented by: Sodium Chloride (Normal Saline) 1,000 mls @ 100 mls/hr IV ASDIRECTED [facility] Stop: 08/12/21 05:41 Doxycycline Hyclate 100 mg/ (Sodium Chloride) 100 mls @ 100 mls/hr IV Q12H [facility] Last Admin: 08/11/21 21:05 Dose: 100 mls/hr Documented by: Doxycycline Hyclate 100 mg/ (Sodium Chloride) 100 mls @ 100 mls/hr IV Q12H [facility] Last Admin: 08/16/21 08:54 Dose: 100 mls/hr Documented by: Remdesivir 100 mg/ Sodium (Chloride) 100 mls @ 100 mls/hr IV Q24H [facility] Stop: 08/16/21 10:59 Last Admin: 08/16/21 10:28 Dose: 100 mls/hr Documented by: Remdesivir 200 mg/ Sodium (Chloride) 250 mls @ 250 mls/hr IV ONETIME ONE Stop: 08/12/21 10:29 Last Admin: 08/12/21 11:41 Dose: 250 mls/hr Documented by: Insulin Human Lispro (Insulin Lispro 100 Unit/Ml 3 Ml Kwikpen) 0 unit SUBCUT QIDACANDBED [facility]; Protocol Last Admin: 08/13/21 08:05 Dose: Not Given Documented by: Levothyroxine Sodium (Levothyroxine 100 Mcg Tab) 100 mcg PO ACBREAKFAST [facility] Levothyroxine Sodium (Levothyroxine 50 Mcg Tab) 50 mcg PO ACBREAKFAST [facility] Levothyroxine Sodium (Levothyroxine 25 Mcg Tab) 25 mcg PO ACBREAKFAST [facility] Lorazepam (Lorazepam 2 Mg/Ml Sdv) 0.5 mg IVPUSH Q4H PRN PRN Reason: Nausea/Vomiting Last Admin: 08/11/21 22:13 Dose: 0.5 mg Documented by: Lorazepam (Lorazepam 2 Mg/Ml Sdv) 0.5 mg IVPUSH Q4H PRN PRN Reason: Anxiety Losartan Potassium (Losartan 50 Mg Tab) 50 mg PO DAILY [facility] Last Admin: 08/13/21 04:18 Dose: Not Given Documented by: Non-Formulary Medication (Metformin [Glucophage]) 1,000 mg PO BIDAC BOOKER - Exam Quality Assessment: Supplemental Oxygen Urinary Catheter Total Time: 4Days 19Hours General: Alert, Oriented, Cooperative, No Acute Distress Lungs: Normal Respiratory Effort. No: Wheezing Cardiovascular: Regular Rate, Regular Rhythm GI/Abdominal Exam: Soft, No Distention Extremities: No Pedal Edema. No: Increased Warmth Psy/Mental Status: Alert, Normal Affect - Patient Data Lab Results Last 24 hrs: Laboratory Results - last 24 hr 08/16/21 08/16/21 08/17/21 Range/Units 16:39 21:02 04:10 WBC 14.9 H (4.5-11.0) K/uL RBC 4.24 (3.30-5.50) M/uL Hgb 10.0 L (12.0-15.0) g/dL Hct 34.1 L (36.0-48.0) % MCV 80 (80-98) fL MCH 24 L (27-31) pg MCHC 29 L (32-36) % Plt Count 393 (150-400) K/uL D-Dimer, Quantitative (0.0-500.0) ng/mL Sodium (140-148) mmol/L Potassium (3.6-5.2) mmol/L Chloride (100-108) mmol/L Carbon Dioxide (21-32) mmol/L Anion Gap (5.0-14.0) mmol/L BUN (7-18) mg/dL Creatinine (0.6-1.0) mg/dL Est Cr Clr Drug Dosing mL/min Estimated GFR (MDRD) (>60) Glucose (74-106) mg/dL POC Glucose 103 140 H (74-106) mg/dL Calcium (8.5-10.1) mg/dL Total Bilirubin (0.2-1.0) mg/dL AST (15-37) U/L ALT (12-78) U/L Alkaline Phosphatase (46-116) U/L C-Reactive Protein (0.0-0.3) mg/dL Total Protein (6.4-8.2) g/dL Albumin (3.4-5.0) g/dL Globulin (2.3-3.5) g/dL Albumin/Globulin Ratio (1.2-2.2) 08/17/21 08/17/21 08/17/21 Range/Units 04:10 04:10 07:33 WBC (4.5-11.0) K/uL RBC (3.30-5.50) M/uL Hgb (12.0-15.0) g/dL Hct (36.0-48.0) % MCV (80-98) fL MCH (27-31) pg MCHC (32-36) % Plt Count (150-400) K/uL D-Dimer, Quantitative 2145.88 H (0.0-500.0) ng/mL Sodium 144 (140-148) mmol/L Potassium 5.0 (3.6-5.2) mmol/L Chloride 110 H (100-108) mmol/L Carbon Dioxide 22 (21-32) mmol/L Anion Gap 17.0 H (5.0-14.0) mmol/L BUN 32 H (7-18) mg/dL Creatinine 1.1 H (0.6-1.0) mg/dL Est Cr Clr Drug Dosing 42.64 mL/min Estimated GFR (MDRD) 49 L (>60) Glucose 166 H (74-106) mg/dL POC Glucose 121 H (74-106) mg/dL Calcium 9.0 (8.5-10.1) mg/dL Total Bilirubin 0.4 (0.2-1.0) mg/dL AST 73 H (15-37) U/L ALT 119 H (12-78) U/L Alkaline Phosphatase 179 H (46-116) U/L C-Reactive Protein 1.16 H (0.0-0.3) mg/dL Total Protein 6.6 (6.4-8.2) g/dL Albumin 2.6 L (3.4-5.0) g/dL Globulin 4.0 H (2.3-3.5) g/dL Albumin/Globulin Ratio 0.7 L (1.2-2.2) 08/17/21 Range/Units 11:26 WBC (4.5-11.0) K/uL RBC (3.30-5.50) M/uL Hgb (12.0-15.0) g/dL Hct (36.0-48.0) % MCV (80-98) fL MCH (27-31) pg MCHC (32-36) % Plt Count (150-400) K/uL D-Dimer, Quantitative (0.0-500.0) ng/mL Sodium (140-148) mmol/L Potassium (3.6-5.2) mmol/L Chloride (100-108) mmol/L Carbon Dioxide (21-32) mmol/L Anion Gap (5.0-14.0) mmol/L BUN (7-18) mg/dL Creatinine (0.6-1.0) mg/dL Est Cr Clr Drug Dosing mL/min Estimated GFR (MDRD) (>60) Glucose (74-106) mg/dL POC Glucose 137 H (74-106) mg/dL Calcium (8.5-10.1) mg/dL Total Bilirubin (0.2-1.0) mg/dL AST (15-37) U/L ALT (12-78) U/L Alkaline Phosphatase (46-116) U/L C-Reactive Protein (0.0-0.3) mg/dL Total Protein (6.4-8.2) g/dL Albumin (3.4-5.0) g/dL Globulin (2.3-3.5) g/dL Albumin/Globulin Ratio (1.2-2.2) Result Diagrams: 08/17/21 04:10 08/17/21 04:10 Sepsis Event Note - Evaluation Sepsis Screening Result: Sepsis Risk - Focused Exam Vital Signs: Vital Signs Temp Pulse Resp BP Pulse Ox 08/17/21 12:58 96 08/17/21 10:43 36.9 C 70 18 112/66 99 08/17/21 07:05 96 08/17/21 07:00 35.7 C L 55 L 18 111/50 L 97 08/17/21 02:59 60 18 97 - Problem List & Annotations (1) Pneumonia due to COVID-19 virus SNOMED Code(s): 631628103477702080 Code(s): U07.1 - COVID-19; J12.82 - PNEUMONIA DUE TO CORONAVIRUS DISEASE 2019 Status: Acute Current Visit: Yes (2) Acute respiratory failure with hypoxia SNOMED Code(s): 14171214, 417696372 Code(s): J96.01 - ACUTE RESPIRATORY FAILURE WITH HYPOXIA Status: Acute Current Visit: Yes (3) Acute kidney injury SNOMED Code(s): 21082380, 04599449 Code(s): N17.9 - ACUTE KIDNEY FAILURE, UNSPECIFIED Status: Acute Current Visit: Yes (4) Type 2 diabetes mellitus SNOMED Code(s): 74435729 Code(s): E11.9 - TYPE 2 DIABETES MELLITUS WITHOUT COMPLICATIONS Status: Chronic Current Visit: Yes Qualifiers: Diabetes mellitus residential insulin use: without terminal system operator use Diabetes mellitus complication status: without complication Qualified Code(s): E11.9 - Type 2 diabetes mellitus without complications (5) Obesity, morbid, BMI 40.0-49.9 SNOMED Code(s): 763794653, 373812215, 74471217052719 Code(s): E66.01 - MORBID (SEVERE) OBESITY DUE TO EXCESS CALORIES Status: Chronic Current Visit: Yes - Problem List Review Problem List Initiated/Reviewed/Updated: Yes - My Orders Last 24 Hours: My Active Orders 08/16/21 18:00 dexAMETHasone 6 mg PO Q24H 08/16/21 21:00 Doxycycline [Vibramycin] 100 mg PO BID 08/17/21 00:15 Insert Pacheco Catheter [Insert Urinary Catheter] [OM.PC] Q24H 08/17/21 07:30 metFORMIN [Glucophage] 1,000 mg PO BIDMEALS 08/17/21 09:00 Furosemide [Lasix] 20 mg PO DAILY 08/17/21 16:30 GLUCOSE POC LAB TO COLLECT JPM [POC] QIDACANDBED 08/17/21 21:00 GLUCOSE POC LAB TO COLLECT JPM [POC] QIDACANDBED 08/18/21 07:30 GLUCOSE POC LAB TO COLLECT JPM [POC] QIDACANDBED 08/18/21 11:30 GLUCOSE POC LAB TO COLLECT JPM [POC] QIDACANDBED 08/18/21 16:30 GLUCOSE POC LAB TO COLLECT JPM [POC] QIDACANDBED 08/18/21 21:00 GLUCOSE POC LAB TO COLLECT JPM [POC] QIDACANDBED 08/19/21 07:30 GLUCOSE POC LAB TO COLLECT JPM [POC] QIDACANDBED 08/19/21 11:30 GLUCOSE POC LAB TO COLLECT JPM [POC] QIDACANDBED 08/19/21 16:30 GLUCOSE POC LAB TO COLLECT JPM [POC] QIDACANDBED 08/19/21 21:00 GLUCOSE POC LAB TO COLLECT JPM [POC] QIDACANDBED 08/20/21 07:30 GLUCOSE POC LAB TO COLLECT JPM [POC] QIDACANDBED 08/20/21 11:30 GLUCOSE POC LAB TO COLLECT JPM [POC] QIDACANDBED 08/20/21 16:30 GLUCOSE POC LAB TO COLLECT JPM [POC] QIDACANDBED 08/20/21 21:00 GLUCOSE POC LAB TO COLLECT JPM [POC] QIDACANDBED 08/21/21 07:30 GLUCOSE POC LAB TO COLLECT JPM [POC] QIDACANDBED 08/21/21 11:30 GLUCOSE POC LAB TO COLLECT JPM [POC] QIDACANDBED 08/21/21 16:30 GLUCOSE POC LAB TO COLLECT JPM [POC] QIDACANDBED 08/21/21 21:00 GLUCOSE POC LAB TO COLLECT JPM [POC] QIDACANDBED 08/22/21 07:30 GLUCOSE POC LAB TO COLLECT JPM [POC] QIDACANDBED 08/22/21 11:30 GLUCOSE POC LAB TO COLLECT JPM [POC] QIDACANDBED 08/22/21 16:30 GLUCOSE POC LAB TO COLLECT JPM [POC] QIDACANDBED 08/22/21 21:00 GLUCOSE POC LAB TO COLLECT JPM [POC] QIDACANDBED 08/23/21 07:30 GLUCOSE POC LAB TO COLLECT JPM [POC] QIDACANDBED 08/23/21 11:30 GLUCOSE POC LAB TO COLLECT JPM [POC] QIDACANDBED 08/23/21 16:30 GLUCOSE POC LAB TO COLLECT JPM [POC] QIDACANDBED 08/23/21 21:00 GLUCOSE POC LAB TO COLLECT JPM [POC] QIDACANDBED - Plan Plan:: ASSESSMENT AND PLAN - COVID-19 pneumonia-complicated by acute respiratory failure with significant supplemental oxygen requirements. Onset of symptoms difficult to determine. Supplemental oxygen requirements continue to decrease and she is now on 8 L of high flow. Clinically the patient feels well. -Dexamethasone 6 mg every 24 hours (day 7) -Enoxaparin every 24 hours -remdesivir x 5 days -Continue baricitinib (day 6) -Supplemental oxygen with heated/high flow oxygen, wean as able -Covid isolation Acute kidney injury-likely due to intravascular volume depletion. Slowly improving each day. - labs in the morning Type 2 diabetes mellitus-usually controlled with oral agents. Sugars have been stable even with the steroids. -Restart Metformin tomorrow -Continue other home medications Morbid obesity BMI greater than 40- Maintenance issues - -DVT prophylaxis-enoxaparin -GI prophylaxis-not indicated -Nutrition-diabetic -Pacheco catheter-removed 08/16 Disposition -I anticipate discharge home after the hospital stay. Kevin Ludwig M.D.
[2021-08-17] MEDS: Dexamethasone 2 MG Tab PO SCH (17:47)
[2021-08-17] MEDS: Enoxaparin 30 MG/0.3 ML Syringe SUBCUT SCH (19:44)
[2021-08-17] MEDS: rOPINIRole 1 MG Tab PO SCH ×2 (19:51→22:36)
[2021-08-18] MEDS: Levothyroxine 100 MCG, Levothyroxine 50 MCG, Levothyroxine 25 MCG PO SCH ×3 (08:11)
[2021-08-18] MEDS: Pantoprazole 40 MG Tab.CR PO SCH (08:11)
[2021-08-18] MEDS: metFORMIN 500 MG Tab PO SCH ×2 (08:12→17:08)
[2021-08-18] MEDS: Rosuvastatin 10 MG Tab PO SCH (08:12)
[2021-08-18] MEDS: Furosemide 20 MG Tab PO SCH (08:12)
[2021-08-18] MEDS: Empagliflozin 10 MG Tab PO SCH (08:12)
[2021-08-18] MEDS: Aspirin 81 MG Tab.EC PO SCH (08:12)
[2021-08-18] MEDS: Allopurinol 100 MG Tab PO SCH (08:13)
[2021-08-18] MEDS: rOPINIRole 0.5 MG Tab PO SCH (13:34)
[2021-08-18] MEDS: Dexamethasone 2 MG Tab PO SCH (17:08)
--- NOTE | 2021-08-18 17:10 | PCM.PN ---
- General Info Date of Service: 08/18/21 Subjective Update: Ms. Dimas has experienced progressive improvement over the past few days, now down to 8 L/min of supplemental oxygen. Overall she feels stronger and appetite seems to be improving. Less shortness of breath experienced with activity. Functional Status: Reports: Tolerating Diet, Ambulating, Urinating - Review of Systems General: Reports: Weakness, Fatigue. Denies: Fever, Chills Pulmonary: Reports: Shortness of Breath, Cough. Denies: Pleuritic Chest Pain, Sputum, Hemoptysis, Wheezing Cardiovascular: Reports: Dyspnea on Exertion. Denies: Chest Pain, Palpitations, Orthopnea, PND, Edema, Lightheadedness Gastrointestinal: Reports: No Symptoms Genitourinary: Reports: No Symptoms - Patient Data Vitals - Most Recent: Last Vital Signs Temp 95.9 F L 08/18/21 14:25 Pulse 68 08/18/21 14:25 Resp 18 08/18/21 14:25 BP 124/69 08/18/21 14:25 Pulse Ox 96 08/18/21 14:28 Weight - Most Recent: 260 lb Lab Results Last 24 Hours: Laboratory Results - last 24 hr 08/17/21 08/18/21 08/18/21 Range/Units 20:18 07:38 11:31 POC Glucose 131 H 114 H 68 L (74-106) mg/dL 08/18/21 Range/Units 16:38 POC Glucose 91 (74-106) mg/dL Med Orders - Current: Current Medications Acetaminophen (Acetaminophen 325 Mg Tab) 650 mg PO Q4H PRN PRN Reason: Pain (Mild 1-3)/fever Last Admin: 08/14/21 23:59 Dose: 650 mg Documented by: Allopurinol (Allopurinol 100 Mg Tab) 100 mg PO DAILY [facility] Last Admin: 08/18/21 08:13 Dose: 100 mg Documented by: Aspirin (Aspirin 81 Mg Tab.Ec) 81 mg PO DAILY [facility] Last Admin: 08/18/21 08:12 Dose: 81 mg Documented by: Baricitinib (Baricitinib 2 Mg Tab) 2 mg PO DAILY [facility] Stop: 08/25/21 09:01 Last Admin: 08/18/21 08:13 Dose: 2 mg Documented by: Benzonatate (Benzonatate 100 Mg Cap) 100 mg PO TID PRN PRN Reason: Cough Last Admin: 08/16/21 13:30 Dose: 100 mg Documented by: Dexamethasone (Dexamethasone 2 Mg Tab) 6 mg PO Q24H [facility] Last Admin: 08/17/21 17:47 Dose: 6 mg Documented by: Enoxaparin Sodium (Enoxaparin 30 Mg/0.3 Ml Syringe) 30 mg SUBCUT Q24H [facility] Last Admin: 08/17/21 19:44 Dose: 30 mg Documented by: Furosemide (Furosemide 20 Mg Tab) 20 mg PO DAILY [facility] Last Admin: 08/18/21 08:12 Dose: 20 mg Documented by: Guaifenesin/Dextromethorphan (Guaifenesin/Dextromethorphan 100-10 Mg/5 Ml Soln 10 Ml Cup) 10 ml PO Q4H PRN PRN Reason: Cough Last Admin: 08/15/21 20:36 Dose: 10 ml Documented by: Levothyroxine Sodium 100 mcg/Levothyroxine Sodium 50 mcg/Levothyroxine Sodium 25 mcg 175 mcg PO ACBREAKFAST [facility] Last Admin: 08/18/21 08:11 Dose: 175 mcg Documented by: Lorazepam (Lorazepam 2 Mg/Ml Sdv) 1 mg IVPUSH Q2H PRN PRN Reason: Anxiety Last Admin: 08/14/21 15:22 Dose: 1 mg Documented by: Magnesium Hydroxide (Magnesium Hydroxide 400 Mg/5 Ml Susp 30 Ml Cup) 30 ml PO Q12H PRN PRN Reason: Constipation Melatonin (Melatonin 3 Mg Tab) 9 mg PO BEDTIME PRN PRN Reason: Sleep Last Admin: 08/16/21 22:16 Dose: 9 mg Documented by: Metformin HCl (Metformin 500 Mg Tab) 1,000 mg PO BIDMEALS [facility] Last Admin: 08/18/21 08:12 Dose: 1,000 mg Documented by: Morphine Sulfate (Morphine 2 Mg/Ml Syringe) 2 mg IVPUSH Q2H PRN PRN Reason: air hunger Last Admin: 08/15/21 04:26 Dose: 2 mg Documented by: Ondansetron HCl (Ondansetron 4 Mg/2 Ml Sdv) 4 mg IV Q6H PRN PRN Reason: Nausea/Vomiting Ondansetron HCl (Ondansetron 4 Mg Tab.Dis) 4 mg PO Q6H PRN PRN Reason: Nausea able to take PO Pantoprazole Sodium (Pantoprazole 40 Mg Tab.Cr) 40 mg PO ACBREAKFAST [facility] Last Admin: 08/18/21 08:11 Dose: 40 mg Documented by: Ropinirole HCl (Ropinirole 0.5 Mg Tab) 0.5 mg PO DAILY@1400 [facility] Last Admin: 08/18/21 13:34 Dose: Not Given Documented by: Ropinirole HCl (Ropinirole 1 Mg Tab) 1 mg PO BEDTIME [facility] Last Admin: 08/17/21 22:36 Dose: Not Given Documented by: Rosuvastatin Calcium (Rosuvastatin 10 Mg Tab) 5 mg PO DAILY [facility] Last Admin: 08/18/21 08:12 Dose: 5 mg Documented by: Senna/Docusate Sodium (Docusate Sodium/Sennosides 50-8.6 Mg Tab) 1 tab PO BID PRN PRN Reason: Constipation Sodium Chloride (Sodium Chloride 0.9% 10 Ml Syringe) 10 ml FLUSH ASDIRECTED PRN PRN Reason: Keep Vein Open Discontinued Medications Baricitinib (Baricitinib 2 Mg Tab) 4 mg PO DAILY [facility] Stop: 08/25/21 09:01 Dexamethasone (Dexamethasone 4 Mg/Ml Sdv) 6 mg IVPUSH ONETIME ONE Stop: 08/11/21 16:40 Last Admin: 08/11/21 16:59 Dose: 6 mg Documented by: Dexamethasone (Dexamethasone 4 Mg/Ml Sdv) 6 mg IVPUSH Q24H [facility] Stop: 08/20/21 17:01 Last Admin: 08/16/21 17:50 Dose: Not Given Documented by: Diltiazem HCl (Diltiazem 180 Mg Cap.Cd) 180 mg PO DAILY [facility] Last Admin: 08/13/21 04:18 Dose: Not Given Documented by: Doxycycline Hyclate (Doxycycline 100 Mg Cap) 100 mg PO BID [facility] Stop: 08/17/21 23:00 Last Admin: 08/17/21 22:36 Dose: Not Given Documented by: Ceftriaxone Sodium 2 gm/ (Sodium Chloride) 50 mls @ 100 mls/hr IV Q24H [facility] Last Admin: 08/15/21 19:23 Dose: 100 mls/hr Documented by: Sodium Chloride (Normal Saline) 1,000 mls @ 100 mls/hr IV ASDIRECTED [facility] Stop: 08/12/21 05:41 Doxycycline Hyclate 100 mg/ (Sodium Chloride) 100 mls @ 100 mls/hr IV Q12H [facility] Last Admin: 08/11/21 21:05 Dose: 100 mls/hr Documented by: Doxycycline Hyclate 100 mg/ (Sodium Chloride) 100 mls @ 100 mls/hr IV Q12H [facility] Last Admin: 08/16/21 08:54 Dose: 100 mls/hr Documented by: Remdesivir 100 mg/ Sodium (Chloride) 100 mls @ 100 mls/hr IV Q24H [facility] Stop: 08/16/21 10:59 Last Admin: 08/16/21 10:28 Dose: 100 mls/hr Documented by: Remdesivir 200 mg/ Sodium (Chloride) 250 mls @ 250 mls/hr IV ONETIME ONE Stop: 08/12/21 10:29 Last Admin: 08/12/21 11:41 Dose: 250 mls/hr Documented by: Insulin Human Lispro (Insulin Lispro 100 Unit/Ml 3 Ml Kwikpen) 0 unit SUBCUT QIDACANDBED [facility]; Protocol Last Admin: 08/13/21 08:05 Dose: Not Given Documented by: Levothyroxine Sodium (Levothyroxine 100 Mcg Tab) 100 mcg PO ACBREAKFAST [facility] Levothyroxine Sodium (Levothyroxine 50 Mcg Tab) 50 mcg PO ACBREAKFAST [facility] Levothyroxine Sodium (Levothyroxine 25 Mcg Tab) 25 mcg PO ACBREAKFAST [facility] Lorazepam (Lorazepam 2 Mg/Ml Sdv) 0.5 mg IVPUSH Q4H PRN PRN Reason: Nausea/Vomiting Last Admin: 08/11/21 22:13 Dose: 0.5 mg Documented by: Lorazepam (Lorazepam 2 Mg/Ml Sdv) 0.5 mg IVPUSH Q4H PRN PRN Reason: Anxiety Losartan Potassium (Losartan 50 Mg Tab) 50 mg PO DAILY [facility] Last Admin: 08/13/21 04:18 Dose: Not Given Documented by: Non-Formulary Medication (Metformin [Glucophage]) 1,000 mg PO BIDAC [facility] - Exam Quality Assessment: Supplemental Oxygen, DVT Prophylaxis Urinary Catheter Total Time: 4Days 19Hours General: Alert, Oriented, Cooperative, Mild Distress Lungs: Crackles. No: Rales, Rhonchi, Wheezing Cardiovascular: Regular Rate, Regular Rhythm, No Murmurs GI/Abdominal Exam: Soft, Non-Tender, No Organomegaly, No Distention Extremities: Non-Tender, No Pedal Edema - Patient Data Lab Results Last 24 hrs: Laboratory Results - last 24 hr 08/17/21 08/18/21 08/18/21 Range/Units 20:18 07:38 11:31 POC Glucose 131 H 114 H 68 L (74-106) mg/dL 08/18/21 Range/Units 16:38 POC Glucose 91 (74-106) mg/dL Result Diagrams: 08/17/21 04:10 08/17/21 04:10 Sepsis Event Note - Evaluation Sepsis Screening Result: No Definite Risk - Focused Exam Vital Signs: Vital Signs Temp Pulse Resp BP BP Pulse Ox 08/18/21 14:28 96 08/18/21 14:25 95.9 F L 68 18 124/69 96 08/18/21 11:18 67 18 121/61 08/18/21 07:32 96.9 F 60 18 123/54 L 95 08/18/21 07:30 96 - Problem List Review Problem List Initiated/Reviewed/Updated: Yes - My Orders Last 24 Hours: My Active Orders 08/19/21 05:00 COMPREHENSIVE METABOLIC PN,CMP [CHEM] Timed 08/19/21 05:11 CRP [C-REACTIVE PROTEIN] [CHEM] AM D Dimer [D-DIMER QUANTITATIVE] [COAG] AM - Plan Plan:: ASSESSMENT AND PLAN - COVID-19 pneumonia-complicated by acute respiratory failure with significant supplemental oxygen requirements. Onset of symptoms difficult to determine. Supplemental oxygen requirements continue to decrease and she is now on 8 L of high flow. -Dexamethasone 6 mg every 24 hours (day 8) -Enoxaparin every 24 hours -remdesivir x 5 days, completed -Continue baricitinib (day 7) -Supplemental oxygen with heated/high flow oxygen, wean as able -Covid isolation Acute kidney injury-resolved - labs in the morning Type 2 diabetes mellitus-usually controlled with oral agents. Sugars have been stable even with the steroids. -Restart Metformin today -Continue other home medications Morbid obesity BMI greater than 40- Maintenance issues - -DVT prophylaxis-enoxaparin -GI prophylaxis-not indicated -Nutrition-diabetic -Pacheco catheter-removed 08/16 Disposition -I anticipate discharge home after the hospital stay.
[2021-08-18] MEDS: Enoxaparin 30 MG/0.3 ML Syringe SUBCUT SCH (20:53)
[2021-08-18] MEDS: rOPINIRole 1 MG Tab PO SCH (20:54)
[2021-08-18] MEDS: Clotrimazole 10 MG Troche PO SCH (21:34)
[2021-08-19] MEDS: Melatonin 3 MG Tab PO PRN ×2 (00:09→21:15)
[2021-08-19] MEDS: Clotrimazole 10 MG Troche PO SCH ×5 (05:20→21:16)
[2021-08-19] MEDS: Levothyroxine 100 MCG, Levothyroxine 50 MCG, Levothyroxine 25 MCG PO SCH ×3 (09:11)
[2021-08-19] MEDS: Pantoprazole 40 MG Tab.CR PO SCH (09:11)
[2021-08-19] MEDS: metFORMIN 500 MG Tab PO SCH ×2 (09:11→18:41)
[2021-08-19] MEDS: Empagliflozin 10 MG Tab PO SCH (09:12)
[2021-08-19] MEDS: Rosuvastatin 10 MG Tab PO SCH (09:12)
[2021-08-19] MEDS: Aspirin 81 MG Tab.EC PO SCH (09:12)
[2021-08-19] MEDS: Allopurinol 100 MG Tab PO SCH (09:13)
[2021-08-19] MEDS: Furosemide 20 MG Tab PO SCH (09:13)
[2021-08-19] MEDS: rOPINIRole 0.5 MG Tab PO SCH (13:44)
--- NOTE | 2021-08-19 16:16 | PCM.PN ---
- General Info Date of Service: 08/19/21 Subjective Update: Ms. Dimas has improved significantly since yesterday with less shortness of breath and improved overall strength. She is requiring much less supplemental oxygen and is currently down to 3 L/min via nasal cannula. Functional Status: Reports: Tolerating Diet, Ambulating, Urinating - Review of Systems General: Reports: Weakness, Fatigue. Denies: Fever, Chills Pulmonary: Reports: Shortness of Breath, Cough. Denies: Pleuritic Chest Pain, Sputum, Hemoptysis, Wheezing Cardiovascular: Reports: Dyspnea on Exertion. Denies: Chest Pain, Palpitations, Orthopnea, PND, Edema, Lightheadedness Gastrointestinal: Reports: No Symptoms Genitourinary: Reports: No Symptoms - Patient Data Vitals - Most Recent: Last Vital Signs Temp 97.4 F 08/19/21 14:40 Pulse 75 08/19/21 14:40 Resp 18 08/19/21 14:40 BP 119/64 08/19/21 14:40 Pulse Ox 98 08/19/21 14:40 Weight - Most Recent: 260 lb I&O - Last 24 Hours: Intake & Output 08/19/21 08/19/21 08/19/21 06:59 14:59 22:59 Intake Total 480 1080 Balance 480 1080 Lab Results Last 24 Hours: Laboratory Results - last 24 hr 08/18/21 08/18/21 08/19/21 Range/Units 16:38 21:05 04:55 D-Dimer, Quantitative (0.0-500.0) ng/mL Sodium 144 (140-148) mmol/L Potassium 4.8 (3.6-5.2) mmol/L Chloride 110 H (100-108) mmol/L Carbon Dioxide 20 L (21-32) mmol/L Anion Gap 18.8 H (5.0-14.0) mmol/L BUN 35 H (7-18) mg/dL Creatinine 1.0 (0.6-1.0) mg/dL Est Cr Clr Drug Dosing 46.90 mL/min Estimated GFR (MDRD) 54 L (>60) Glucose 139 H (74-106) mg/dL POC Glucose 91 139 H (74-106) mg/dL Calcium 9.1 (8.5-10.1) mg/dL Total Bilirubin 0.5 (0.2-1.0) mg/dL AST 59 H (15-37) U/L ALT 110 H (12-78) U/L Alkaline Phosphatase 149 H (46-116) U/L C-Reactive Protein (0.0-0.3) mg/dL Total Protein 6.5 (6.4-8.2) g/dL Albumin 2.8 L (3.4-5.0) g/dL Globulin 3.7 H (2.3-3.5) g/dL Albumin/Globulin Ratio 0.8 L (1.2-2.2) 08/19/21 08/19/21 08/19/21 Range/Units 04:55 04:55 07:40 D-Dimer, Quantitative 1642.99 H (0.0-500.0) ng/mL Sodium (140-148) mmol/L Potassium (3.6-5.2) mmol/L Chloride (100-108) mmol/L Carbon Dioxide (21-32) mmol/L Anion Gap (5.0-14.0) mmol/L BUN (7-18) mg/dL Creatinine (0.6-1.0) mg/dL Est Cr Clr Drug Dosing mL/min Estimated GFR (MDRD) (>60) Glucose (74-106) mg/dL POC Glucose 114 H (74-106) mg/dL Calcium (8.5-10.1) mg/dL Total Bilirubin (0.2-1.0) mg/dL AST (15-37) U/L ALT (12-78) U/L Alkaline Phosphatase (46-116) U/L C-Reactive Protein 0.35 H (0.0-0.3) mg/dL Total Protein (6.4-8.2) g/dL Albumin (3.4-5.0) g/dL Globulin (2.3-3.5) g/dL Albumin/Globulin Ratio (1.2-2.2) 08/19/21 Range/Units 11:39 D-Dimer, Quantitative (0.0-500.0) ng/mL Sodium (140-148) mmol/L Potassium (3.6-5.2) mmol/L Chloride (100-108) mmol/L Carbon Dioxide (21-32) mmol/L Anion Gap (5.0-14.0) mmol/L BUN (7-18) mg/dL Creatinine (0.6-1.0) mg/dL Est Cr Clr Drug Dosing mL/min Estimated GFR (MDRD) (>60) Glucose (74-106) mg/dL POC Glucose 116 H (74-106) mg/dL Calcium (8.5-10.1) mg/dL Total Bilirubin (0.2-1.0) mg/dL AST (15-37) U/L ALT (12-78) U/L Alkaline Phosphatase (46-116) U/L C-Reactive Protein (0.0-0.3) mg/dL Total Protein (6.4-8.2) g/dL Albumin (3.4-5.0) g/dL Globulin (2.3-3.5) g/dL Albumin/Globulin Ratio (1.2-2.2) Med Orders - Current: Current Medications Acetaminophen (Acetaminophen 325 Mg Tab) 650 mg PO Q4H PRN PRN Reason: Pain (Mild 1-3)/fever Last Admin: 08/14/21 23:59 Dose: 650 mg Documented by: Allopurinol (Allopurinol 100 Mg Tab) 100 mg PO DAILY [facility] Last Admin: 08/19/21 09:13 Dose: 100 mg Documented by: Aspirin (Aspirin 81 Mg Tab.Ec) 81 mg PO DAILY [facility] Last Admin: 08/19/21 09:12 Dose: 81 mg Documented by: Baricitinib (Baricitinib 2 Mg Tab) 2 mg PO DAILY [facility] Stop: 08/25/21 09:01 Last Admin: 08/19/21 09:13 Dose: 2 mg Documented by: Benzonatate (Benzonatate 100 Mg Cap) 100 mg PO TID PRN PRN Reason: Cough Last Admin: 08/16/21 13:30 Dose: 100 mg Documented by: Clotrimazole (Clotrimazole 10 Mg Rory) 10 mg PO 5XDAY [facility] Last Admin: 08/19/21 13:44 Dose: 10 mg Documented by: Dexamethasone (Dexamethasone 2 Mg Tab) 6 mg PO Q24H [facility] Last Admin: 08/18/21 17:08 Dose: 6 mg Documented by: Enoxaparin Sodium (Enoxaparin 30 Mg/0.3 Ml Syringe) 30 mg SUBCUT Q24H [facility] Last Admin: 08/18/21 20:53 Dose: 30 mg Documented by: Furosemide (Furosemide 20 Mg Tab) 20 mg PO DAILY [facility] Last Admin: 08/19/21 09:13 Dose: 20 mg Documented by: Guaifenesin/Dextromethorphan (Guaifenesin/Dextromethorphan 100-10 Mg/5 Ml Soln 10 Ml Cup) 10 ml PO Q4H PRN PRN Reason: Cough Last Admin: 08/15/21 20:36 Dose: 10 ml Documented by: Levothyroxine Sodium 100 mcg/Levothyroxine Sodium 50 mcg/Levothyroxine Sodium 25 mcg 175 mcg PO ACBREAKFAST [facility] Last Admin: 08/19/21 09:11 Dose: 175 mcg Documented by: Lorazepam (Lorazepam 2 Mg/Ml Sdv) 1 mg IVPUSH Q2H PRN PRN Reason: Anxiety Last Admin: 08/14/21 15:22 Dose: 1 mg Documented by: Magnesium Hydroxide (Magnesium Hydroxide 400 Mg/5 Ml Susp 30 Ml Cup) 30 ml PO Q12H PRN PRN Reason: Constipation Melatonin (Melatonin 3 Mg Tab) 9 mg PO BEDTIME PRN PRN Reason: Sleep Last Admin: 08/19/21 00:09 Dose: 9 mg Documented by: Metformin HCl (Metformin 500 Mg Tab) 1,000 mg PO BIDMEALS [facility] Last Admin: 08/19/21 09:11 Dose: 1,000 mg Documented by: Morphine Sulfate (Morphine 2 Mg/Ml Syringe) 2 mg IVPUSH Q2H PRN PRN Reason: air hunger Last Admin: 08/15/21 04:26 Dose: 2 mg Documented by: Ondansetron HCl (Ondansetron 4 Mg/2 Ml Sdv) 4 mg IV Q6H PRN PRN Reason: Nausea/Vomiting Ondansetron HCl (Ondansetron 4 Mg Tab.Dis) 4 mg PO Q6H PRN PRN Reason: Nausea able to take PO Pantoprazole Sodium (Pantoprazole 40 Mg Tab.Cr) 40 mg PO ACBREAKFAST [facility] Last Admin: 08/19/21 09:11 Dose: 40 mg Documented by: Ropinirole HCl (Ropinirole 0.5 Mg Tab) 0.5 mg PO DAILY@1400 [facility] Last Admin: 08/19/21 13:44 Dose: 0.5 mg Documented by: Ropinirole HCl (Ropinirole 1 Mg Tab) 1 mg PO BEDTIME [facility] Last Admin: 08/18/21 20:54 Dose: 1 mg Documented by: Rosuvastatin Calcium (Rosuvastatin 10 Mg Tab) 5 mg PO DAILY [facility] Last Admin: 08/19/21 09:12 Dose: 5 mg Documented by: Senna/Docusate Sodium (Docusate Sodium/Sennosides 50-8.6 Mg Tab) 1 tab PO BID PRN PRN Reason: Constipation Sodium Chloride (Sodium Chloride 0.9% 10 Ml Syringe) 10 ml FLUSH ASDIRECTED PRN PRN Reason: Keep Vein Open Discontinued Medications Baricitinib (Baricitinib 2 Mg Tab) 4 mg PO DAILY [facility] Stop: 08/25/21 09:01 Dexamethasone (Dexamethasone 4 Mg/Ml Sdv) 6 mg IVPUSH ONETIME ONE Stop: 08/11/21 16:40 Last Admin: 08/11/21 16:59 Dose: 6 mg Documented by: Dexamethasone (Dexamethasone 4 Mg/Ml Sdv) 6 mg IVPUSH Q24H [facility] Stop: 08/20/21 17:01 Last Admin: 08/16/21 17:50 Dose: Not Given Documented by: Diltiazem HCl (Diltiazem 180 Mg Cap.Cd) 180 mg PO DAILY [facility] Last Admin: 08/13/21 04:18 Dose: Not Given Documented by: Doxycycline Hyclate (Doxycycline 100 Mg Cap) 100 mg PO BID [facility] Stop: 08/17/21 23:00 Last Admin: 08/17/21 22:36 Dose: Not Given Documented by: Ceftriaxone Sodium 2 gm/ (Sodium Chloride) 50 mls @ 100 mls/hr IV Q24H [facility] Last Admin: 08/15/21 19:23 Dose: 100 mls/hr Documented by: Sodium Chloride (Normal Saline) 1,000 mls @ 100 mls/hr IV ASDIRECTED [facility] Stop: 08/12/21 05:41 Doxycycline Hyclate 100 mg/ (Sodium Chloride) 100 mls @ 100 mls/hr IV Q12H [facility] Last Admin: 08/11/21 21:05 Dose: 100 mls/hr Documented by: Doxycycline Hyclate 100 mg/ (Sodium Chloride) 100 mls @ 100 mls/hr IV Q12H [facility] Last Admin: 08/16/21 08:54 Dose: 100 mls/hr Documented by: Remdesivir 100 mg/ Sodium (Chloride) 100 mls @ 100 mls/hr IV Q24H [facility] Stop: 08/16/21 10:59 Last Admin: 08/16/21 10:28 Dose: 100 mls/hr Documented by: Remdesivir 200 mg/ Sodium (Chloride) 250 mls @ 250 mls/hr IV ONETIME ONE Stop: 08/12/21 10:29 Last Admin: 08/12/21 11:41 Dose: 250 mls/hr Documented by: Insulin Human Lispro (Insulin Lispro 100 Unit/Ml 3 Ml Kwikpen) 0 unit SUBCUT QIDACANDBED [facility]; Protocol Last Admin: 08/13/21 08:05 Dose: Not Given Documented by: Levothyroxine Sodium (Levothyroxine 100 Mcg Tab) 100 mcg PO ACBREAKFAST [facility] Levothyroxine Sodium (Levothyroxine 50 Mcg Tab) 50 mcg PO ACBREAKFAST [facility] Levothyroxine Sodium (Levothyroxine 25 Mcg Tab) 25 mcg PO ACBREAKFAST [facility] Lorazepam (Lorazepam 2 Mg/Ml Sdv) 0.5 mg IVPUSH Q4H PRN PRN Reason: Nausea/Vomiting Last Admin: 08/11/21 22:13 Dose: 0.5 mg Documented by: Lorazepam (Lorazepam 2 Mg/Ml Sdv) 0.5 mg IVPUSH Q4H PRN PRN Reason: Anxiety Losartan Potassium (Losartan 50 Mg Tab) 50 mg PO DAILY [facility] Last Admin: 08/13/21 04:18 Dose: Not Given Documented by: Non-Formulary Medication (Metformin [Glucophage]) 1,000 mg PO BIDAC [facility] - Exam Quality Assessment: Supplemental Oxygen, DVT Prophylaxis Urinary Catheter Total Time: 4Days 19Hours General: Alert, Oriented, Cooperative, Mild Distress Lungs: Clear to Auscultation, Normal Respiratory Effort. No: Crackles, Rales, Rhonchi, Wheezing Cardiovascular: Regular Rate, Regular Rhythm, No Murmurs GI/Abdominal Exam: Soft, Non-Tender, No Organomegaly, No Distention Extremities: Non-Tender, No Pedal Edema - Patient Data Lab Results Last 24 hrs: Laboratory Results - last 24 hr 08/18/21 08/18/21 08/19/21 Range/Units 16:38 21:05 04:55 D-Dimer, Quantitative (0.0-500.0) ng/mL Sodium 144 (140-148) mmol/L Potassium 4.8 (3.6-5.2) mmol/L Chloride 110 H (100-108) mmol/L Carbon Dioxide 20 L (21-32) mmol/L Anion Gap 18.8 H (5.0-14.0) mmol/L BUN 35 H (7-18) mg/dL Creatinine 1.0 (0.6-1.0) mg/dL Est Cr Clr Drug Dosing 46.90 mL/min Estimated GFR (MDRD) 54 L (>60) Glucose 139 H (74-106) mg/dL POC Glucose 91 139 H (74-106) mg/dL Calcium 9.1 (8.5-10.1) mg/dL Total Bilirubin 0.5 (0.2-1.0) mg/dL AST 59 H (15-37) U/L ALT 110 H (12-78) U/L Alkaline Phosphatase 149 H (46-116) U/L C-Reactive Protein (0.0-0.3) mg/dL Total Protein 6.5 (6.4-8.2) g/dL Albumin 2.8 L (3.4-5.0) g/dL Globulin 3.7 H (2.3-3.5) g/dL Albumin/Globulin Ratio 0.8 L (1.2-2.2) 08/19/21 08/19/21 08/19/21 Range/Units 04:55 04:55 07:40 D-Dimer, Quantitative 1642.99 H (0.0-500.0) ng/mL Sodium (140-148) mmol/L Potassium (3.6-5.2) mmol/L Chloride (100-108) mmol/L Carbon Dioxide (21-32) mmol/L Anion Gap (5.0-14.0) mmol/L BUN (7-18) mg/dL Creatinine (0.6-1.0) mg/dL Est Cr Clr Drug Dosing mL/min Estimated GFR (MDRD) (>60) Glucose (74-106) mg/dL POC Glucose 114 H (74-106) mg/dL Calcium (8.5-10.1) mg/dL Total Bilirubin (0.2-1.0) mg/dL AST (15-37) U/L ALT (12-78) U/L Alkaline Phosphatase (46-116) U/L C-Reactive Protein 0.35 H (0.0-0.3) mg/dL Total Protein (6.4-8.2) g/dL Albumin (3.4-5.0) g/dL Globulin (2.3-3.5) g/dL Albumin/Globulin Ratio (1.2-2.2) 08/19/21 Range/Units 11:39 D-Dimer, Quantitative (0.0-500.0) ng/mL Sodium (140-148) mmol/L Potassium (3.6-5.2) mmol/L Chloride (100-108) mmol/L Carbon Dioxide (21-32) mmol/L Anion Gap (5.0-14.0) mmol/L BUN (7-18) mg/dL Creatinine (0.6-1.0) mg/dL Est Cr Clr Drug Dosing mL/min Estimated GFR (MDRD) (>60) Glucose (74-106) mg/dL POC Glucose 116 H (74-106) mg/dL Calcium (8.5-10.1) mg/dL Total Bilirubin (0.2-1.0) mg/dL AST (15-37) U/L ALT (12-78) U/L Alkaline Phosphatase (46-116) U/L C-Reactive Protein (0.0-0.3) mg/dL Total Protein (6.4-8.2) g/dL Albumin (3.4-5.0) g/dL Globulin (2.3-3.5) g/dL Albumin/Globulin Ratio (1.2-2.2) Result Diagrams: 08/17/21 04:10 08/19/21 04:55 Sepsis Event Note - Evaluation Sepsis Screening Result: No Definite Risk - Focused Exam Vital Signs: Vital Signs Temp Pulse Resp BP Pulse Ox 08/19/21 14:40 97.4 F 75 18 119/64 98 08/19/21 11:00 97.1 F 71 18 117/57 L 97 08/19/21 07:00 97.9 F 67 18 129/64 94 L - Problem List Review Problem List Initiated/Reviewed/Updated: Yes - My Orders Last 24 Hours: My Active Orders 08/18/21 22:00 Clotrimazole [Mycelex] 10 mg PO 5XDAY 08/19/21 08:32 Evaluate for Home Oxygen [RT Evaluate for Home Oxygen] [RC] Click to Edit - Plan Plan:: ASSESSMENT AND PLAN - COVID-19 pneumonia-complicated by acute respiratory failure with significant supplemental oxygen requirements. Further improvement from yesterday, now using only 3 L/min via nasal cannula of supplemental oxygen. -Dexamethasone 6 mg every 24 hours (day 9) -Enoxaparin every 24 hours -remdesivir x 5 days, completed -Continue baricitinib (day 8) -Supplemental oxygen with heated/high flow oxygen, wean as able -Covid isolation Acute kidney injury-resolved - labs in the morning Type 2 diabetes mellitus-usually controlled with oral agents. Sugars have been stable even with the steroids. -Restart Metformin today -Continue other home medications Morbid obesity BMI greater than 40- Maintenance issues - -DVT prophylaxis-enoxaparin -GI prophylaxis-not indicated -Nutrition-diabetic -Pacheco catheter-removed 08/16 Disposition -I anticipate discharge home tomorrow
[2021-08-19] MEDS: Enoxaparin 30 MG/0.3 ML Syringe SUBCUT SCH (21:15)
[2021-08-19] MEDS: rOPINIRole 1 MG Tab PO SCH (21:17)
[2021-08-20] MEDS: Clotrimazole 10 MG Troche PO SCH ×2 (07:04→09:25)
[2021-08-20] MEDS: Empagliflozin 10 MG Tab PO SCH (09:25)
[2021-08-20] MEDS: Allopurinol 100 MG Tab PO SCH (09:26)
[2021-08-20] MEDS: Pantoprazole 40 MG Tab.CR PO SCH (09:27)
[2021-08-20] MEDS: Aspirin 81 MG Tab.EC PO SCH (09:27)
[2021-08-20] MEDS: Furosemide 20 MG Tab PO SCH (09:27)
[2021-08-20] MEDS: metFORMIN 500 MG Tab PO SCH (09:27)
[2021-08-20] MEDS: Levothyroxine 100 MCG, Levothyroxine 50 MCG, Levothyroxine 25 MCG PO SCH ×3 (09:28)
[2021-08-20] MEDS: Rosuvastatin 10 MG Tab PO SCH (09:29)
--- NOTE | 2021-08-20 12:40 | PCM.DCSUM1 ---
Discharge Summary - Hospital Course Brief History: Ms. Dimas is a 75-year-old woman who was admitted through the emergency department with weakness, shortness of breath, and hypoxia, secondary to COVID-19 infection with bilateral pneumonia. - Discharge Data Discharge Date: 08/20/21 Discharge Disposition: Home, Self-Care 01 Condition: Fair - Referral to Home Health Primary Care Physician: PCP None - Discharge Diagnosis/Problem(s) (1) COVID-19 SNOMED Code(s): 272160673 ICD Code: U07.1 - COVID-19 Status: Acute Current Visit: Yes (2) Stage 4 chronic kidney disease SNOMED Code(s): 717624836 ICD Code: N18.4 - CHRONIC KIDNEY DISEASE, STAGE 4 (SEVERE) Status: Chronic Current Visit: Yes (3) Pneumonia due to COVID-19 virus SNOMED Code(s): 174887056577461167 ICD Code: U07.1 - COVID-19; J12.82 - PNEUMONIA DUE TO CORONAVIRUS DISEASE 2018 Status: Acute Current Visit: Yes (4) Acute respiratory failure with hypoxia SNOMED Code(s): 01399033, 080855876 ICD Code: J96.01 - ACUTE RESPIRATORY FAILURE WITH HYPOXIA Status: Acute Current Visit: Yes (5) Type 2 diabetes mellitus SNOMED Code(s): 59360197 ICD Code: E11.9 - TYPE 2 DIABETES MELLITUS WITHOUT COMPLICATIONS Status: Chronic Current Visit: Yes Qualifiers: 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 Dimas presented to the emergency room with progressive dyspnea and weakness. She reports that she has not felt well for about 3 weeks or so. The first week of her illness she reports that she thought she had a bad cold with sinus congestion. After about a week the symptoms all got better and then several days later she started to feel ill again. She had mild dyspnea and cough as well as a mild sore throat and some persistent nasal congestion. Her dyspnea and sore throat have slowly progressed over the past 2 weeks or so. Shortness of breath has increased significantly since Wednesday. She was seen in the clinic on Wednesday and tested positive for Covid. They thought maybe she had a bacterial bronchitis as well and did start her on a azithromycin. She was not offered monoclonal antibodies at that time. She is short of breath even at rest and has difficulty speaking and even short sentences without supplemental oxygen on. She did have 1 dose of a Covid vaccine but is not sure which one. Work-up in the emergency room revealed severe acute hypoxic respiratory failure. She is currently requiring a combination of high flow nasal cannula and nonrebreather. Labs are consistent with Covid. Procalcitonin was also quite elevated. Chest x-ray is pending. Given her severe respiratory compromise she was admitted to the intensive care unit. She was started on IV remdesivir, IV dexamethasone, and oral baricitinib. She was also placed on DVT prophylaxis with Lovenox. She continued to require high flow oxygen for several days and then slowly improved in oxygenation as well as overall strength. By the time of discharge she was down to 2 L of oxygen per minute via nasal cannula. She was qualified for home oxygen on 19 August, oxygen saturation was 87% on room air while at rest. Blood sugar levels were monitored throughout hospitalization and she did receive her usual dose of Metformin in addition to sliding scale Humalog. Activity will be as tolerated and she will remain on a diabetic diet. Follow-up appointment will be scheduled with her primary care provider within 1 week. - Patient Instructions Diet: Diabetic Diet Activity: As Tolerated Other/Special Instructions: Please schedule follow-up appointment with primary care provider within 1 week. Please arrange for home oxygen 2 L/min via nasal cannula. - Discharge Plan *PRESCRIPTION DRUG MONITORING PROGRAM REVIEWED*: Not Applicable *COPY OF PRESCRIPTION DRUG MONITORING REPORT IN PATIENT SIRENA: Not Applicable Home Medications: Home Meds Ascorbic Acid [Vitamin C] 1,000 mg PO DAILY 05/05/21 [History] Aspirin [Halfprin] 81 mg PO DAILY 05/05/21 [History] Calcium Carbonate [Calcium] 1,000 mg PO DAILY 05/05/21 [History] Calcium Carbonate [Calcium] 250 mg PO BEDTIME 05/05/21 [History] Diltiazem [Dilacor XR] 180 mg PO DAILY 05/05/21 [History] Empagliflozin [Jardiance] 10 mg PO DAILY 05/05/21 [History] Fish Oil/[place]-3 Fatty Acids [Fish Oil 1,000 MG] 1 cap PO DAILY 05/05/21 [History] Furosemide [Lasix] 20 mg PO DAILY 05/05/21 [History] Levothyroxine 175 mcg PO DAILY 05/05/21 [History] Losartan [Cozaar] 50 mg PO DAILY 05/05/21 [History] Magnesium 400 mg PO BID 05/05/21 [History] Omeprazole 40 mg PO DAILY 05/05/21 [History] Potassium Gluconate [Potassium] 198 mg PO BID 05/05/21 [History] Rosuvastatin [Crestor] 5 mg PO DAILY 05/05/21 [History] Tumeric/Ging/[place]/Oreg/Capryl [Candicidal Capsule] 1 cap PO BID 05/05/21 [History] Vitamin B Complex 1 cap PO DAILY 05/05/21 [History] Zinc Gluconate [Zinc] 15 mg PO DAILY 05/05/21 [History] allopurinoL [Zyloprim] 100 mg PO DAILY 05/05/21 [History] metFORMIN [Glucophage] 1,000 mg PO BID 05/05/21 [History] rOPINIRole [Requip] 0.5 mg PO BID 05/05/21 [History] Oxygen Therapy Mode: Nasal Cannula Oxygen Flow Rate (L/min): 2 Patient Handouts: Hypoxia, Fall Prevention in the Home, Adult, [id number], COVID-19 Referrals: Divine Plunkett NP [Nurse Practitioner] - 08/29/21 1:00 pm (Your appointment will be at the [facility]– [place]. Please arrive 15 minutes early to register for your appointment.) - Discharge Summary/Plan Comment DC Time >30 min.: No Total # of Minutes for Discharge Time: 20 - Patient Data Vitals - Most Recent: Last Vital Signs Temp 97.1 F 08/20/21 07:00 Pulse 70 08/20/21 07:00 Resp 16 08/20/21 07:00 BP 109/54 L 08/20/21 07:00 Pulse Ox 90 L 08/20/21 07:23 Weight - Most Recent: 260 lb I&O - Last 24 hours: Intake & Output 08/19/21 08/20/21 08/20/21 22:59 06:59 14:59 Intake Total 600 Output Total 1000 Balance -400 Lab Results - Last 24 hrs: Laboratory Results - last 24 hr 08/19/21 08/19/21 08/20/21 Range/Units 16:37 21:09 07:30 POC Glucose 108 H 110 H 73 L (74-106) mg/dL 08/20/21 Range/Units 12:05 POC Glucose 99 (74-106) mg/dL Med Orders - Current: Current Medications Acetaminophen (Acetaminophen 325 Mg Tab) 650 mg PO Q4H PRN PRN Reason: Pain (Mild 1-3)/fever Last Admin: 08/14/21 23:59 Dose: 650 mg Documented by: Allopurinol (Allopurinol 100 Mg Tab) 100 mg PO DAILY [facility] Last Admin: 08/20/21 09:26 Dose: 100 mg Documented by: Aspirin (Aspirin 81 Mg Tab.Ec) 81 mg PO DAILY [facility] Last Admin: 08/20/21 09:27 Dose: 81 mg Documented by: Baricitinib (Baricitinib 2 Mg Tab) 2 mg PO DAILY [facility] Stop: 08/25/21 09:01 Last Admin: 08/20/21 09:26 Dose: 2 mg Documented by: Benzonatate (Benzonatate 100 Mg Cap) 100 mg PO TID PRN PRN Reason: Cough Last Admin: 08/16/21 13:30 Dose: 100 mg Documented by: Clotrimazole (Clotrimazole 10 Mg Rory) 10 mg PO 5XDAY [facility] Last Admin: 08/20/21 09:25 Dose: 10 mg Documented by: Enoxaparin Sodium (Enoxaparin 30 Mg/0.3 Ml Syringe) 30 mg SUBCUT Q24H [facility] Last Admin: 08/19/21 21:15 Dose: 30 mg Documented by: Furosemide (Furosemide 20 Mg Tab) 20 mg PO DAILY [facility] Last Admin: 08/20/21 09:27 Dose: 20 mg Documented by: Guaifenesin/Dextromethorphan (Guaifenesin/Dextromethorphan 100-10 Mg/5 Ml Soln 10 Ml Cup) 10 ml PO Q4H PRN PRN Reason: Cough Last Admin: 08/15/21 20:36 Dose: 10 ml Documented by: Levothyroxine Sodium 100 mcg/Levothyroxine Sodium 50 mcg/Levothyroxine Sodium 25 mcg 175 mcg PO ACBREAKFAST [facility] Last Admin: 08/20/21 09:28 Dose: 175 mcg Documented by: Lorazepam (Lorazepam 2 Mg/Ml Sdv) 1 mg IVPUSH Q2H PRN PRN Reason: Anxiety Last Admin: 08/14/21 15:22 Dose: 1 mg Documented by: Magnesium Hydroxide (Magnesium Hydroxide 400 Mg/5 Ml Susp 30 Ml Cup) 30 ml PO Q12H PRN PRN Reason: Constipation Melatonin (Melatonin 3 Mg Tab) 9 mg PO BEDTIME PRN PRN Reason: Sleep Last Admin: 08/19/21 21:15 Dose: 9 mg Documented by: Metformin HCl (Metformin 500 Mg Tab) 1,000 mg PO BIDMEALS [facility] Last Admin: 08/20/21 09:27 Dose: 1,000 mg Documented by: Morphine Sulfate (Morphine 2 Mg/Ml Syringe) 2 mg IVPUSH Q2H PRN PRN Reason: air hunger Last Admin: 08/15/21 04:26 Dose: 2 mg Documented by: Ondansetron HCl (Ondansetron 4 Mg/2 Ml Sdv) 4 mg IV Q6H PRN PRN Reason: Nausea/Vomiting Ondansetron HCl (Ondansetron 4 Mg Tab.Dis) 4 mg PO Q6H PRN PRN Reason: Nausea able to take PO Pantoprazole Sodium (Pantoprazole 40 Mg Tab.Cr) 40 mg PO ACBREAKFAST [facility] Last Admin: 08/20/21 09:27 Dose: 40 mg Documented by: Ropinirole HCl (Ropinirole 0.5 Mg Tab) 0.5 mg PO DAILY@1400 [facility] Last Admin: 08/19/21 13:44 Dose: 0.5 mg Documented by: Ropinirole HCl (Ropinirole 1 Mg Tab) 1 mg PO BEDTIME [facility] Last Admin: 08/19/21 21:17 Dose: 1 mg Documented by: Rosuvastatin Calcium (Rosuvastatin 10 Mg Tab) 5 mg PO DAILY [facility] Last Admin: 08/20/21 09:29 Dose: 5 mg Documented by: Senna/Docusate Sodium (Docusate Sodium/Sennosides 50-8.6 Mg Tab) 1 tab PO BID PRN PRN Reason: Constipation Sodium Chloride (Sodium Chloride 0.9% 10 Ml Syringe) 10 ml FLUSH ASDIRECTED PRN PRN Reason: Keep Vein Open Discontinued Medications Baricitinib (Baricitinib 2 Mg Tab) 4 mg PO DAILY [facility] Stop: 08/25/21 09:01 Dexamethasone (Dexamethasone 4 Mg/Ml Sdv) 6 mg IVPUSH ONETIME ONE Stop: 08/11/21 16:40 Last Admin: 08/11/21 16:59 Dose: 6 mg Documented by: Dexamethasone (Dexamethasone 4 Mg/Ml Sdv) 6 mg IVPUSH Q24H [facility] Stop: 08/20/21 17:01 Last Admin: 08/16/21 17:50 Dose: Not Given Documented by: Dexamethasone (Dexamethasone 2 Mg Tab) 6 mg PO Q24H [facility] Last Admin: 08/18/21 17:08 Dose: 6 mg Documented by: Diltiazem HCl (Diltiazem 180 Mg Cap.Cd) 180 mg PO DAILY [facility] Last Admin: 08/13/21 04:18 Dose: Not Given Documented by: Doxycycline Hyclate (Doxycycline 100 Mg Cap) 100 mg PO BID [facility] Stop: 08/17/21 23:00 Last Admin: 08/17/21 22:36 Dose: Not Given Documented by: Ceftriaxone Sodium 2 gm/ (Sodium Chloride) 50 mls @ 100 mls/hr IV Q24H [facility] Last Admin: 08/15/21 19:23 Dose: 100 mls/hr Documented by: Sodium Chloride (Normal Saline) 1,000 mls @ 100 mls/hr IV ASDIRECTED [facility] Stop: 08/12/21 05:41 Doxycycline Hyclate 100 mg/ (Sodium Chloride) 100 mls @ 100 mls/hr IV Q12H [facility] Last Admin: 08/11/21 21:05 Dose: 100 mls/hr Documented by: Doxycycline Hyclate 100 mg/ (Sodium Chloride) 100 mls @ 100 mls/hr IV Q12H [facility] Last Admin: 08/16/21 08:54 Dose: 100 mls/hr Documented by: Remdesivir 100 mg/ Sodium (Chloride) 100 mls @ 100 mls/hr IV Q24H [facility] Stop: 08/16/21 10:59 Last Admin: 08/16/21 10:28 Dose: 100 mls/hr Documented by: Remdesivir 200 mg/ Sodium (Chloride) 250 mls @ 250 mls/hr IV ONETIME ONE Stop: 08/12/21 10:29 Last Admin: 08/12/21 11:41 Dose: 250 mls/hr Documented by: Insulin Human Lispro (Insulin Lispro 100 Unit/Ml 3 Ml Kwikpen) 0 unit SUBCUT QIDACANDBED [facility]; Protocol Last Admin: 08/13/21 08:05 Dose: Not Given Documented by: Levothyroxine Sodium (Levothyroxine 100 Mcg Tab) 100 mcg PO ACBREAKFAST [facility] Levothyroxine Sodium (Levothyroxine 50 Mcg Tab) 50 mcg PO ACBREAKFAST BOOKER Levothyroxine Sodium (Levothyroxine 25 Mcg Tab) 25 mcg PO ACBREAKFAST [facility]ER Lorazepam (Lorazepam 2 Mg/Ml Sdv) 0.5 mg IVPUSH Q4H PRN PRN Reason: Nausea/Vomiting Last Admin: 08/11/21 22:13 Dose: 0.5 mg Documented by: Lorazepam (Lorazepam 2 Mg/Ml Sdv) 0.5 mg IVPUSH Q4H PRN PRN Reason: Anxiety Losartan Potassium (Losartan 50 Mg Tab) 50 mg PO DAILY [facility] Last Admin: 08/13/21 04:18 Dose: Not Given Documented by: Non-Formulary Medication (Metformin [Glucophage]) 1,000 mg PO BIDAC [facility] - Exam Quality Assessment: Reports: Supplemental Oxygen General: Reports: Alert, Oriented, Cooperative, Mild Distress Lungs: Reports: Clear to Auscultation, Normal Respiratory Effort, Decreased Breath Sounds Cardiovascular: Reports: Regular Rate, Regular Rhythm, No Murmurs GI/Abdominal Exam: Soft, Non-Tender, No Organomegaly, No Distention Extremities: Non-Tender, No Pedal Edema
== END 2021-08-20 13:00 | disposition home or self-care (01) | DRG 177 ==
LOC: JP.ED 15:00 → JP.ICU 18:28 → JP.2SS 08-16 09:54
PROVIDERS: ADMIT Internal Medicine; ATTEND Hospitalist
PROC: 8E0ZXY6 Isolation (ICD-10-PCS; principal; 2021-08-11)
PROC: XW033E5 Introduction of Remdesivir Anti-infective into Peripheral Vein, Percutaneous Approach, New Technology Group 5 (ICD-10-PCS; principal; 2021-08-11)
PROC: 3E0333Z Introduction of Anti-inflammatory into Peripheral Vein, Percutaneous Approach (ICD-10-PCS; 2021-08-11)
PROC: XW0DXM6 Introduction of Baricitinib into Mouth and Pharynx, External Approach, New Technology Group 6 (ICD-10-PCS; 2021-08-11)
PROC: 3E0DX3Z Introduction of Anti-inflammatory into Mouth and Pharynx, External Approach (ICD-10-PCS; 2021-08-18)
DX: U07.1 COVID-19 (principal); J12.82 Pneumonia due to coronavirus disease 2019; J96.01 Acute respiratory failure with hypoxia; J15.9 Unspecified bacterial pneumonia; R09.02 Hypoxemia; N17.9 Acute kidney failure, unspecified; Z68.41 Body mass index [BMI] 40.0-44.9, adult; N18.4 Chronic kidney disease, stage 4 (severe); R79.1 Abnormal coagulation profile; E11.9 Type 2 diabetes mellitus without complications; I48.91 Unspecified atrial fibrillation; E78.00 Pure hypercholesterolemia, unspecified; E66.01 Morbid (severe) obesity due to excess calories; K21.9 Gastro-esophageal reflux disease without esophagitis; Z86.19 Personal history of other infectious and parasitic diseases; E11.22 Type 2 diabetes mellitus with diabetic chronic kidney disease; I12.9 Hypertensive chronic kidney disease with stage 1 through stage 4 chronic kidney disease, or unspecified chronic kidney disease; E03.9 Hypothyroidism, unspecified; Z88.5 Allergy status to narcotic agent; Z88.6 Allergy status to analgesic agent; Z79.84 Long term (current) use of oral hypoglycemic drugs; Z79.82 Long term (current) use of aspirin; Z79.890 Hormone replacement therapy; Z79.899 Other long term (current) drug therapy
CPT/HCPCS: 36415; 80048; 84145; 85027; 85379; 86140; 96374; 99285; J1100; 51702; 71045; 71045-26; 80053; 81001; 82947; 94660; 94762; A9270-GY; J0696; J1650; J2060; J2270; J3490; J7050; J8540

== ENCOUNTER 2023-04-05 20:20 | Emergency (ER) | payer MEDICARE, OTHER ==
[2023-04-05] MEDS ORDERED: Naloxone 0.4 MG/ML SDV IVPUSH PRN (22:15)
[2023-04-05 22:27] LABS: BASOPHILS ABSOLUTE AUTO 0.03 K/uL (0.00-0.10); BASOPHILS PERCENT AUTO 0.3 % (0.1-1.3); HEMATOCRIT 41.1 % (34.3-46.0); HEMOGLOBIN 13.1 g/dL (11.2-15.5); IMMATURE GRAN ABSOLUTE AUTO 0.05 K/uL (0.00-0.23); IMMATURE GRAN PERCENT AUTO 0.6 % (0.0-0.7); LYMPHOCYTES ABSOLUTE AUTO 0.43 K/uL (0.8-3.3); LYMPHOCYTES PERCENT AUTO 4.8 % (11.4-47.7); MEAN CORPUSCULAR HGB CONC 31.9 g/dL (31.6-35.5); MEAN CORPUSCULAR VOLUME 94.1 fL (81.4-99.0); MONOCYTES ABSOLUTE AUTO 0.14 K/uL (0.20-0.90); MONOCYTES PERCENT AUTO 1.5 % (3.3-12.6); NEUTROPHILS PERCENT AUTO 92.8 % (40.0-78.1); PLATELET COUNT,PLT 179 K/uL (130-375); RED BLOOD CELL COUNT 4.37 M/uL (3.77-5.24); WHITE BLOOD CELL COUNT,WBC 9.1 K/uL (3.2-11.0)
[2023-04-05] MEDS: HYDROmorphone 0.5 MG/0.5 ML Syringe IVPUSH ONE (22:29)
[2023-04-05] MEDS: Sodium Chloride 0.9% 500 ML IV ONE (22:29)
[2023-04-05 22:47] LABS: A/G RATIO 0.9 (1.2-2.2); ALANINE AMINOTRANSFERASE,ALT 101 U/L (12-78); ALBUMIN 3.4 g/dL (3.4-5.0); ALKALINE PHOSPHATASE 146 U/L (46-116); ASPARTATE AMNIOTRANSFERASE,AST 133 U/L (15-37); BILIRUBIN TOTAL 0.7 mg/dL (0.2-1.0); BLOOD UREA NITROGEN,BUN 17 mg/dL (7-18); CALCIUM 8.9 mg/dL (8.5-10.1); CARBON DIOXIDE,CO2 23 mmol/L (21-32); CHLORIDE,CL 102 mmol/L (100-108); CREATININE 1.7 mg/dL (0.6-1.0); EST CRCL DRUG DOSING (CG) 22.61 mL/min; ESTIMATED GFR 31 mL/min (>60); GLUCOSE RANDOM 160 mg/dL (74-106); POTASSIUM,K 3.6 mmol/L (3.6-5.2); SODIUM,NA 137 mmol/L (140-148)
[2023-04-05 22:49] LABS: ANION GAP 15.6 mmol/L (5.0-14.0)
[2023-04-05 23:15] LABS: SEDIMENTATION RATE MANUAL 22 mm/hr (0-25)
== END 2023-04-05 23:45 | disposition home or self-care (01) ==
LOC: JP.ED 20:20
DX: M25.551 Pain in right hip (principal); M25.552 Pain in left hip; I10 Essential (primary) hypertension; I48.91 Unspecified atrial fibrillation; E78.00 Pure hypercholesterolemia, unspecified; K21.9 Gastro-esophageal reflux disease without esophagitis; M19.90 Unspecified osteoarthritis, unspecified site; E11.9 Type 2 diabetes mellitus without complications; E03.9 Hypothyroidism, unspecified; Z86.16 Personal history of COVID-19; Z88.5 Allergy status to narcotic agent; Z79.82 Long term (current) use of aspirin; Z79.84 Long term (current) use of oral hypoglycemic drugs; Z79.899 Other long term (current) drug therapy
CPT/HCPCS: 36415; 80053; 85025; 85651; 86140; 96361; 96374; 99283; J1170; J7040

== ENCOUNTER 2023-10-25 08:54 | Day surgery (SDC) | payer MEDICARE ==
[2023-10-25 09:25] LABS: HEMOGLOBIN 13.7 g/dL (11.2-15.5); MEAN CORPUSCULAR HEMOGLOBIN 29.7 pg (31.6-35.5); MEAN CORPUSCULAR HGB CONC 31.9 g/dL (31.6-35.5); MEAN CORPUSCULAR VOLUME 93.3 fL (81.4-99.0); RED BLOOD CELL COUNT 4.61 M/uL (3.77-5.24); WHITE BLOOD CELL COUNT,WBC 12.3 K/uL (3.2-11.0)
[2023-10-25 09:46] LABS: A/G RATIO 0.9 (1.2-2.2); ALANINE AMINOTRANSFERASE,ALT 59 U/L (12-78); ALBUMIN 3.5 g/dL (3.4-5.0); ALKALINE PHOSPHATASE 115 U/L (46-116); ANION GAP 12.4 mmol/L (5.0-14.0); ASPARTATE AMNIOTRANSFERASE,AST 45 U/L (15-37); BILIRUBIN TOTAL 0.9 mg/dL (0.2-1.0); BLOOD UREA NITROGEN,BUN 14 mg/dL (7-18); CARBON DIOXIDE,CO2 30 mmol/L (21-32); CHLORIDE,CL 98 mmol/L (100-108); CREATININE 1.1 mg/dL (0.6-1.0); EST CRCL DRUG DOSING (CG) 34.95 mL/min; ESTIMATED GFR 52 mL/min (>60); GLUCOSE RANDOM 144 mg/dL (74-106); MAGNESIUM 1.8 mg/dL (1.8-2.4); PHOSPHORUS 3.3 mg/dL (2.5-4.9); POTASSIUM,K 3.4 mmol/L (3.6-5.2); PROTEIN TOTAL,TP 7.6 g/dL (6.4-8.2); SODIUM,NA 137 mmol/L (140-148)
[2023-10-25] MEDS: Potassium Chloride 10 MEQ in Premix Bag 1 BAG IV ONE (10:05)
[2023-10-25] MEDS: Lactated Ringers 1,000 ML IV SCH (10:05)
[2023-10-25] MEDS: POTASSIUM CHLORIDE IV ONE (10:46)
[2023-10-25] MEDS: LIDOCAINE 1% IV ONE (10:46)
[2023-10-25] MEDS: SODIUM CHLORIDE 0.9% IV ONE (10:46)
== END 2023-10-25 11:50 | disposition home or self-care (01) ==
LOC: JP.SDS 08:54
PROVIDERS: ATTEND Student in an Organized Health Care Education/Training Program
DX: E61.1 Iron deficiency (principal); E87.6 Hypokalemia; Z53.8 Procedure and treatment not carried out for other reasons
CPT/HCPCS: 36415; 80053; 83735; 84100; 85027; 93005; 93010; J3480; J3490; J7120